=== PATIENT | female | born 1965 | race Caucasian/White ===

== ENCOUNTER 2020-04-01 07:30 | Outpatient (REF) | payer OTHER, SELFPAY ==
[2020-04-01 11:24] LABS: MANUAL DIFF FLAG NO
[2020-04-01 11:33] LABS: Basophils Percent Auto 0.6 % (0-2); Eosinophils Absolute Auto 0.1 X10*3/uL (0.0-0.4); Eosinophils Percent Auto 2.5 % (0-4); Hematocrit 38.6 % (37-47); Hemoglobin 12.2 g/dl (12.0-16.0); Lymphocytes Absolute Auto 1.3 X10*3/uL (1.2-4.9); Lymphocytes Percent Auto 39.3 % (20-40); Mean Corpuscular HGB Conc 31.6 g/dl (31.0-35.0); Mean Corpuscular Hemoglobin 27.9 pg (27.0-33.0); Mean Corpuscular Volume 88.3 fL (80-98); Mean Platelet Volume 10.2 fL (9.4-12.3); Monocytes Absolute Auto 0.4 X10*3/uL (0.1-1.2); Monocytes Percent Auto 13.4 % (2-11); Neutrophils Absolute Auto 1.4 X10*3/uL (2.0-8.3); Neutrophils Percent Auto 44.2 % (45-73); Platelet Count 188 X10*3/uL (160-400); Red Blood Count 4.37 X10*6/uL (4.20-5.50); Red Cell Distribution Width 13.2 % (11.0-16.0); White Blood Count 3.2 X10*3/uL (4.8-10.8)
[2020-04-01 12:38] LABS: Alanine Aminotransferase 28 U/L (0-31); Albumin Level 4.4 g/dL (3.5-5.0); Alkaline Phosphatase 111 U/L (39-117); Anion Gap 13 (12-20); Aspartate Amino Transferase 26 U/L (5-31); Bilirubin Total 0.7 mg/dL (0.0-1.0); Blood Urea Nitrogen 14 mg/dL (9-16); Calcium 9.1 mg/dL (8.4-10.2); Carbon Dioxide 26 mmol/L (22-29); Chloride 103 mmol/L (96-108); Estimated Glomerular Filt Rate > 60; Glucose Fasting 110 mg/dL (60-99); Potassium 4.4 mmol/l (3.3-5.1); Sodium 138 mmol/L (135-145); Total Protein 7.3 g/dL (6.5-8.0)
[2020-04-01 12:49] LABS: TSH reflex Free T4 0.53 mIU/mL (0.32-4.0)
== END 2020-04-01 07:31 | disposition home or self-care (01) ==
LOC: HO.HMGCLDS 07:30
PROVIDERS: PCP Nurse Practitioner Family; Visit Provider Internal Medicine
DX: Z20.828 Contact with and (suspected) exposure to other viral communicable diseases (principal); F41.9 Anxiety disorder, unspecified; F32.9 Major depressive disorder, single episode, unspecified; F10.10 Alcohol abuse, uncomplicated
CPT/HCPCS: 36415; 80053; 84443; 85025; C9803; U0003

== ENCOUNTER 2020-07-03 13:20 | Outpatient (REF) | payer OTHER, SELFPAY ==
--- NOTE | ~2020-07-03 | CT_ITS ---
EXAMINATION: CT CHEST WITHOUT CONTRAST CLINICAL INFORMATION: Wheezing COMPARISON: None TECHNIQUE: Multidetector volumetric CT imaging of the chest was done. Axial MIP volume rendering provided. Sagittal and coronal reformatted images were obtained. This CT examination was performed using dose optimization techniques as appropriate, variously including the following: *Automated exposure control *Adjustment of mA and/or kV according to patient size (this includes techniques or standardized protocols for targeted exams where dose is matched to indication/reason for exam; i.e. extremities or head) *Use of iterative reconstruction technique DLP: 132 mGy-cm FINDINGS: [employer] WORKER: LUNGS: There is mild biapical pleural and parenchymal scarring. There is a 2 mm right upper lobe nodule axial image 182 series 7. There is a 2 mm peripheral or subpleural left lower lobe nodule adjacent to the fissure axial image 273 series 7, and slight nodular thickening of the fissure for example axial image 336 series 7. There is a 2 mm right lower lobe nodule axial image 333 series 7. No evidence of bronchiectasis or endobronchial or endotracheal lesion is seen. MEDIASTINUM: There is mild coronary artery calcification. There is a small esophageal hernia. The mediastinum is otherwise normal. The mediastinum is normal. PLEURA: There is no pleural effusion. No pleural mass or thickening. AXILLA: No lymphadenopathy. UPPER ABDOMEN: Evaluation of the upper abdomen is limited due to lack of contrast and low dose film technique. There is a varix seen anterior to the left lobe of the liver questionable for recanalized paraumbilical vein. OSSEOUS STRUCTURES: There is slight loss of height of superior endplate of the T12 vertebral body questionable for mild old compression fracture. CT/CT chest wo con IMPRESSION: Small pulmonary nodules. According to the UPDATED 2017 Fleischner Society recommendations, the advised follow-up imaging for less than 6 mm nodule: Low risk, no chest CT follow-up needed and high risk, optional chest CT follow-up in one year. Mild coronary artery calcification. Small esophageal hernia. Prominent varicosity anterior to the left lobe of the liver questionable for a recannulized paraumbilical vein.
== END 2020-07-03 13:21 | disposition home or self-care (01) ==
LOC: HO.CT 13:20
PROVIDERS: PCP Nurse Practitioner Family; Visit Provider Nurse Practitioner Family
DX: R06.2 Wheezing (principal); U07.1 COVID-19
CPT/HCPCS: 71250

== ENCOUNTER 2020-07-22 14:06 | Outpatient (REF) | payer OTHER, SELFPAY ==
[2020-07-23 08:06] LABS: SARS COV2 IgG Positive (Negative)
== END 2020-07-22 14:07 | disposition home or self-care (01) ==
LOC: HO.HMGCLDS 14:06
PROVIDERS: PCP Nurse Practitioner Family; Visit Provider Nurse Practitioner Family
DX: Z86.16 Personal history of COVID-19 (principal); Z20.822 Contact with and (suspected) exposure to COVID-19
CPT/HCPCS: 36415; 86769

== ENCOUNTER 2020-11-17 08:35 | Outpatient (REF) | payer OTHER, SELFPAY ==
--- NOTE | ~2020-11-17 | MM_ITS ---
EXAMINATION: MM SCREENING DIGITAL BREAST TOMOSYNTHESIS, BILATERAL CLINICAL INFORMATION: Screening. Asymptomatic. The lifetime risk of breast cancer based on the Tyrer-Cuzick Model is 7.6%. COMPARISON: Mammography: None TECHNIQUE: Digital breast tomosynthesis is performed in both the craniocaudal and mediolateral oblique views along with computer-aided detection (CAD). Synthesized 2D images are generated from the tomosynthesis. FINDINGS: There are scattered areas of fibroglandular density (ACR BI-RADS breast composition Category b). Within the deep upper outer aspect of the right breast approximately 9 cm from the nipple there is a grouping of calcifications without linear or branching forms for which spot magnification views in craniocaudal and 90 degree mediolateral views are recommended. No suspicious abnormal dominant masses are identified. Left breast unremarkable. MM/MM tomosynthesis screening BI IMPRESSION: Right breast calcifications for further evaluation with spot magnification views. ASSESSMENT: BI-RADS 0: Incomplete - Need Additional Imaging Evaluation RECOMMENDATION: 1. Additional views of the right breast 2. Targeted ultrasound if warranted after review of the additional views. 3. Radiology department staff will contact the patient for additional imaging. This patient's information was entered into a reminder system with a target due date for their next mammogram.
== END 2020-11-17 08:36 | disposition home or self-care (01) ==
LOC: HO.MAMMO 08:35
PROVIDERS: Visit Provider Nurse Practitioner Family
DX: Z12.31 Encounter for screening mammogram for malignant neoplasm of breast (principal)
CPT/HCPCS: 77063; 77067

== ENCOUNTER 2020-11-20 08:24 | Outpatient (REF) | payer OTHER, SELFPAY ==
--- NOTE | ~2020-11-20 | MM_ITS ---
EXAMINATION: MM DIAGNOSTIC DIGITAL MAMMOGRAPHY, RIGHT CLINICAL INFORMATION: Calcifications deep upper outer aspect of the right breast. COMPARISON: Mammography: 11/17/2020 and 05/22/2011. TECHNIQUE: Digital mammography is performed in the following views: Magnification views of the right breast in craniocaudal and 90-degree mediolateral views. FINDINGS: The breasts are heterogeneously dense, which may obscure small masses (ACR BI-RADS breast composition Category c). The grouping of calcifications within the deep upper outer aspect of the right breast appear without significant change from study of 05/22/2011 on mediolateral oblique film and are not as well seen on the craniocaudal projection but there is a hint of the calcifications being there as well. Screening mammography recommended. Results are provided to the patient at time of visit by the technologist. MM/MM added views RT IMPRESSION: Benign calcifications deep upper outer aspect of the right breast. ASSESSMENT: BI-RADS 2: Benign. RECOMMENDATION: Routine annual mammography screening due in 12 months. This patient's information was entered into a reminder system with a target due date for their next mammogram.
== END 2020-11-20 08:25 | disposition home or self-care (01) ==
LOC: HO.MAMMO 08:24
PROVIDERS: PCP Nurse Practitioner Family; Visit Provider Nurse Practitioner Family
DX: R92.1 Mammographic calcification found on diagnostic imaging of breast (principal)
CPT/HCPCS: 77065

== ENCOUNTER 2020-12-15 08:56 | Outpatient (REF) | payer OTHER, SELFPAY ==
--- NOTE | ~2020-12-15 | XR_ITS ---
EXAMINATION: XR LUMBOSACRAL SPINE CLINICAL INFORMATION: Low back pain COMPARISON: Chest CT June 2020 TECHNIQUE: Three views of the lumbosacral spine. FINDINGS: Bone alignment is normal. No acute fracture or dislocation is seen. There is an old mild T12 vertebral body compression fracture similar to chest CT June 2020. Disc spaces are normal. There is lower lumbar spine facet arthritis. XR/XR lumbar spine 2-3V IMPRESSION: Old mild T12 vertebral body compression fracture. Lower lumbar spine facet arthritis.
== END 2020-12-15 08:57 | disposition home or self-care (01) ==
LOC: HO.HMGCX 08:56
PROVIDERS: PCP Nurse Practitioner Family; Visit Provider Nurse Practitioner Family
DX: Z13.89 Encounter for screening for other disorder (principal)
CPT/HCPCS: 72100

== ENCOUNTER 2021-02-27 08:54 | Outpatient (REF) | payer OTHER, SELFPAY ==
--- NOTE | ~2021-02-27 | XR_ITS ---
EXAMINATION: XR KNEE, RIGHT CLINICAL INFORMATION: Pain COMPARISON: None TECHNIQUE: Four views of the right knee. FINDINGS: Bone alignment is normal. No fracture or dislocation is seen. There are small osteophytes seen at the patellofemoral joint. Joint spaces are otherwise normal. There is no joint effusion. XR/XR knee RT 4V IMPRESSION: Small osteophytes at the patellofemoral joint otherwise unremarkable exam.
== END 2021-02-27 08:55 | disposition home or self-care (01) ==
LOC: HO.HMGCX 08:54
PROVIDERS: PCP Nurse Practitioner Family; Visit Provider Physician Assistant Medical
DX: M25.561 Pain in right knee (principal)
CPT/HCPCS: 73564

== ENCOUNTER 2021-05-11 19:03 | Outpatient (REF) | payer OTHER, SELFPAY ==
[2021-05-11 19:48] LABS: Influenza A PCR NEGATIVE (Negative); Influenza B PCR NEGATIVE (Negative); Resp Syncy Virus RNA Qual PCR NEGATIVE (Negative); SARS COV2 PCR INHOUSE NEGATIVE (Negative)
== END 2021-05-11 19:04 | disposition home or self-care (01) ==
LOC: HO.LNP 19:03
PROVIDERS: Visit Provider Internal Medicine
DX: R43.9 Unspecified disturbances of smell and taste (principal); Z20.822 Contact with and (suspected) exposure to COVID-19
CPT/HCPCS: 0241U

== ENCOUNTER 2022-02-27 10:32 | Outpatient (REF) | payer OTHER, SELFPAY ==
--- NOTE | ~2022-02-27 | XR_ITS ---
EXAMINATION: XR HIP, RIGHT CLINICAL INFORMATION: Right hip pain. COMPARISON: 2016 right hip radiographs. TECHNIQUE: Two views of the right hip. FINDINGS: Bones and soft tissues are normal. No fracture. Alignment is anatomic. Hip joint space is maintained. XR/XR hip RT min 2V IMPRESSION: Unremarkable right hip. No significant interval change.
== END 2022-02-27 10:33 | disposition home or self-care (01) ==
LOC: HO.HMGCX 10:32
PROVIDERS: PCP Nurse Practitioner Family; Visit Provider Nurse Practitioner Family
DX: M25.551 Pain in right hip (principal)
CPT/HCPCS: 73502

== ENCOUNTER 2022-04-23 11:48 | Outpatient (REF) | payer OTHER, SELFPAY ==
--- NOTE | ~2022-04-23 | MM_ITS ---
EXAMINATION: MM SCREENING DIGITAL BREAST TOMOSYNTHESIS, BILATERAL CLINICAL INFORMATION: Screening. Asymptomatic. The lifetime risk of breast cancer based on the Tyrer-Cuzick Model is 7%. COMPARISON: Mammography: 11/20/2020 2821, outside mammography 05/22/2011 ([facility]). TECHNIQUE: Digital breast tomosynthesis is performed in both the craniocaudal and mediolateral oblique views along with computer-aided detection (CAD). Synthesized 2D images are generated from the tomosynthesis. FINDINGS: There are scattered areas of fibroglandular density (ACR BI-RADS breast composition Category b). Parenchymal pattern is similar to prior studies. There are scattered stable asymmetries. No developing density or interval mass or architectural abnormality or abnormal calcifications. A few fine calcifications are again seen posterior outer right breast. The axilla and skin contours are unremarkable. MM/MM tomosynthesis screening BI IMPRESSION: -No mammographic evidence of malignancy. -No significant changes from prior studies. ASSESSMENT: BI-RADS 2: Benign RECOMMENDATION: Routine annual mammography screening. This patient's information was entered into a reminder system with a target due date for their next mammogram.
== END 2022-04-23 11:49 | disposition home or self-care (01) ==
LOC: HO.MAMMO 11:48
PROVIDERS: PCP Nurse Practitioner Family; Visit Provider Nurse Practitioner Family
DX: Z12.31 Encounter for screening mammogram for malignant neoplasm of breast (principal)
CPT/HCPCS: 77063; 77067

== ENCOUNTER 2022-07-12 13:46 | Outpatient (REF) | payer OTHER, SELFPAY ==
[2022-07-12 15:18] LABS: Influenza A PCR NEGATIVE (Negative); Influenza B PCR NEGATIVE (Negative); Resp Syncy Virus RNA Qual PCR NEGATIVE (Negative); SARS COV2 PCR INHOUSE NEGATIVE (Negative)
== END 2022-07-12 13:47 | disposition home or self-care (01) ==
LOC: HO.LNP 13:46
PROVIDERS: Visit Provider Physician Assistant
DX: Z13.89 Encounter for screening for other disorder (principal)
CPT/HCPCS: 0241U

== ENCOUNTER 2022-08-11 08:00 | Outpatient (RCR) | payer OTHER, SELFPAY ==
[2022-08-06 07:43] VITALS: BP 152/98; PULSE 111; O2SAT 96
--- NOTE | 2022-08-06 09:33 | MHC.PT.EP ---
[facility] [place] [facility] [place] [facility] [place] Office [address] Alexandra Harris [address] [phone] F: [phone] F: [phone] F: [phone] F: [phone] Physical Therapy Plan of Care Date of Evaluation: Date of Surgery: Diagnosis: This is a 57 yo female presenting to skilled PT with a script for dizziness and giddiness. Assessment: This is a 57 yo female presenting to skilled PT with a script for dizziness and giddiness. Patient reporting that she had Covid for the second time after Amanuel and since then she felt like her ears have been off (L side is worse, feels itchy). She went to urgent care and was given Izabela and then continued to feel off and went to PCP and was prescribed meclizine. Denies imaging. She feels like her vision in off but has not been to the optomitrist. She gets the symptoms when standing up too fast, bending forward, stairs and when driving. She reports that she has to move slowly, I feels like my head goes this way but my eyes don't follow . Examination shows + oculomotor tests, (-) VBI B, and functional cervical AROM. She was (+) for BPPV with aniket-hallpike on the R but PT was unable to assess due to patient anxiety, nausea as well as patient not following directions for focusing or keep eyes open. She refused to reassess due to anxiety, fear and nausea but will be returning next week. I called PCP who will be keeping her out of work for now. In terms of balance she fell into the falls risk category on DGI . She would benefit from PT 2x/wk for 4wks to further assess if patient + for BPPV or if referral out may be necessary. Patient to continue PT next week to address impairments, implement HEP and optimize functional mobility. ? referrals for PCP: optometry (patient with blurry vision without cheaters on), Brain scan for + oculomotor tests, neurology, ENT Frequency and Duration: The patient will be seen 2x/wk for 4wks Short Term Goals: [facility]ci Goals: I in HEP Negative in all 6 canals for dizziness and nystagmus Return to normal gait pattern without reports fo LOB due to dizziness Return to work in full Treatment Plan: Modalities to reduce pain, spasms and effusion. Manual therapy to restore motion and function. Therapeutic exercise to improve strength and flexibility. Neuromuscular re-education for posture and balance. Therapeutic activities to return to functional activities of daily living. Electronically signed by: Neris Brito PT Please sign and return to therapist. Thank you for your referral.
--- NOTE | 2022-09-16 10:07 | MHC.PT.DC ---
[place] Office [place] Office [place] Office [address] Alexandra Harris [address] [phone] F: [phone] F: [phone] F: [phone] F: [phone] Physical Therapy Discharge Report Diagnosis: This is a 57 yo female presenting to skilled PT with a script for dizziness and giddiness. Date of Surgery: Date of Evaluation: 08/06/22 Date of Discharge: 09/16/22 Treatments to Date: 3 Cancellations to Date: 0 No Shows to Date: 0 Discharge Status: Recommend MD Follow-up Discharge Summary: Patient came into appointment, states that she had a lot of L ear pain last night, took a Motrin and felt better but did not sleep well. She had a panic attack and took another anxiety pill. Today in R hallpike her nystagmus was not subsiding and appear almost vertical in nature. At this point I decided to hold and contacted the PCP again in regards to a brain scan. At this point I educated her that I would like to place her on PT hold until imaging is done to be on the safe side. She did however report feeling better leaving the clinic. Patient did not call or make a return appointment so chart was DC'd after 30 days. Electronically signed by: Neris Brito PT Please sign and return to therapist. Thank you for your referral.
== END 2022-09-16 10:07 | disposition home or self-care (01) ==
LOC: HO.PTCHIC 08:00
PROVIDERS: PCP Nurse Practitioner Family; Visit Provider Nurse Practitioner Family
DX: R42 Dizziness and giddiness (principal)
CPT/HCPCS: 95992; 97110; 97112; 97161; 97162

== ENCOUNTER 2022-08-24 08:47 | Outpatient (REF) | payer OTHER, SELFPAY ==
--- NOTE | ~2022-08-24 | MR_ITS ---
MR BRAIN WITHOUT AND WITH CONTRAST CLINICAL INFORMATION: Nystagmus, vertigo, and tinnitus. COMPARISON: None available. TECHNIQUE: Multiplanar, multisequence MRI of the brain was obtained before and after the intravenous administration of 7 mL of Gadavist. FINDINGS: The inner ear structures including the cochlea, vestibules, and semicircular canals exhibit preserved CSF signal intensity with no pathologic enhancement. The vestibular aqueducts are not enlarged. Cranial nerves VII and VIII complexes are normal in morphology. No enhancing CP angle/retrocochlear lesion. There is no pathologic intracranial enhancement. There is mild chronic microangiopathy. No acute infarct on diffusion-weighted imaging. No intracranial hemorrhage on the gradient series. No hydrocephalus, extra-axial surface collection, or herniation. The midline intracranial structures are normal. Cerebellar tonsils are normally positioned. Craniocervical junction is normal. Osseous marrow signal intensity remains homogeneous. No significant soft tissue abnormality is appreciated. MR/MR head/brain wo/w con IMPRESSION: - No retrocochlear pathology. - Mild chronic microangiopathy.
== END 2022-08-24 08:48 | disposition home or self-care (01) ==
LOC: HO.MRI 08:47
PROVIDERS: PCP Nurse Practitioner Family; Visit Provider Nurse Practitioner Family
DX: H55.09 Other forms of nystagmus (principal); H93.19 Tinnitus, unspecified ear; R42 Dizziness and giddiness
CPT/HCPCS: 70553; A9585

== ENCOUNTER 2022-10-20 06:27 | Outpatient (REF) | payer OTHER, SELFPAY ==
[2022-10-20 11:10] LABS: MANUAL DIFF FLAG NO
[2022-10-20 11:22] LABS: Appearance Urine Clear; Color Urine Yellow; Glucose Urine UA Negative (Negative); Leukocyte Esterase Urine Negative (Negative); Nitrite Urine Negative (Negative); PH 6.5 (5.0-9.0); Specific Gravity - Urine 1.015 (1.005-1.025); Urine Blood Negative (Negative); Urine Ketones Negative (Negative); Urine Protein Negative (Neg-Trace)
[2022-10-20 11:46] LABS: Alanine Aminotransferase 33 U/L (0-31); Albumin Level 4.1 g/dL (3.5-5.0); Alkaline Phosphatase 120 U/L (39-117); Anion Gap 11 (12-20); Aspartate Amino Transferase 27 U/L (5-31); Bilirubin Total 0.7 mg/dL (0.0-1.0); Blood Urea Nitrogen 7 mg/dL (9-16); Calcium 9.6 mg/dL (8.4-10.2); Carbon Dioxide 29 mmol/L (22-29); Chloride 105 mmol/L (96-108); Cholesterol 223 mg/dL; Estimated Glomerular Filt Rate > 60; Glucose Fasting 86 mg/dL (60-99); HDL Cholesterol 70 mg/dL; LDL Cholesterol Calculated 136 mg/dl; Potassium 3.5 mmol/L (3.3-5.1); Sodium 141 mmol/L (135-145); Total Protein 6.8 g/dL (6.5-8.0); Triglycerides 85 mg/dL
[2022-10-20 12:03] LABS: TSH reflex Free T4 0.73 uIU/mL (0.32-4.0)
[2022-10-20 12:08] LABS: Basophils Absolute Auto 0.1 X10*3/uL (0.0-0.2); Eosinophils Absolute Auto 0.1 X10*3/uL (0.0-0.4); Eosinophils Percent Auto 2.3 % (0-4); Hematocrit 39.3 % (37.0-47.0); Hemoglobin 13.1 g/dl (12.0-16.0); Imm Gran Abs Auto 0.01 X10*3/uL (0.00-0.03); Imm Gran Pct Auto 0.2 % (0.0-0.4); Lymphocytes Absolute Auto 2.6 X10*3/uL (1.2-4.9); Lymphocytes Percent Auto 50.7 % (20-40); Mean Corpuscular HGB Conc 33.3 g/dl (31.0-35.0); Mean Platelet Volume 10.7 fL (9.4-12.3); Monocytes Absolute Auto 0.3 X10*3/uL (0.1-1.2); Monocytes Percent Auto 6.6 % (2-11); Neutrophils Percent Auto 39.2 % (45-73); Platelet Count 177 X10*3/uL (160-400); Red Blood Count 3.97 X10*6/uL (4.20-5.50); Red Cell Distribution Width 12.2 % (11.0-16.0); White Blood Count 5.2 X10*3/uL (4.8-10.8)
== END 2022-10-20 06:28 | disposition home or self-care (01) ==
LOC: HO.HMGCLDS 06:27
PROVIDERS: PCP Nurse Practitioner Family; Visit Provider Nurse Practitioner Family
DX: Z00.00 Encounter for general adult medical examination without abnormal findings (principal); I10 Essential (primary) hypertension; W19.XXXA Unspecified fall, initial encounter; F10.10 Alcohol abuse, uncomplicated
CPT/HCPCS: 36415; 80053; 80061; 81003; 84443; 85025

== ENCOUNTER 2023-01-03 15:34 | Outpatient (AMB) | payer OTHER, SELFPAY ==
[2023-01-03 15:48] VITALS: BP 110/78; PULSE 70; O2SAT 100; BMI 22.6
--- NOTE | 2023-01-03 15:48 | MHC.PC.OV ---
Vital Signs 01/03/23 15:48 Height 5 ft 5 in Weight 136 lb BMI 22.6 BP 110/78 Blood Pressure Location Rt brachial Position Sitting Pulse 70 Pulse Source Pulse Oximeter Pulse Oximetry (%) 100 Oxygen Delivery Method Room Air Intake Visit Reasons: 3m follow up seizures Allergies amoxicillin [Augmentin] Allergy (Unknown, Verified 01/03/23 15:50) hives ciprofloxacin [From CIPRO] Allergy (Unknown, Verified 01/03/23 15:50) HIVES clavulanic acid [Augmentin] Allergy (Unknown, Verified 01/03/23 15:50) hives trazodone Allergy (Unknown, Verified 01/03/23 15:50) unknown Medication List - Last Reconciled 01/03/23 by JEROME Tuttle bupropion HCl 150 mg PO QAM 30 days cholecalciferol (vitamin D3) 50 mcg PO DAILY clonazepam 0.5 mg PO BID PRN 20 days fluticasone propion-salmeterol 250-50 mcg/dose 1 inh inhalation BID meclizine 25 mg PO DAILY PRN omeprazole 40 mg PO DAILY 90 days quetiapine (Seroquel) 25 mg PO BEDTIME rosuvastatin 5 mg PO DAILY Tobacco use date assessed: 01/03/23 Dental Screening Dental Screen Date: 01/03/23 Did you have a dental visit in the last 12 months?: Yes Did you have a dental problem in the last 6 months where you did not have access to dental care?: No Was dental information given to patient?: Patient has dentist HPI 3m follow up seizures HPI Details Anxiety/depression: Pt reports doing well. She does not feel like this is doing much for her and would like to decrease it. Will decrease from 300mg to 150mg. Denies any SI and HI. Pt reports that she has not drank alcohol in 4-5 weeks. She has not had any seizure activity. [facility] Medical History Aftercare following left shoulder joint replacement surgery Alcohol abuse Anxiety and depression ETOH abuse Fractured nose Surgical History History of shoulder surgery Family History Father Bladder cancer Lung cancer Eye cancer Mother HTN (hypertension) Sister No problems noted. Son No problems noted. Daughter No problems noted. Maternal Grandmother HTN (hypertension) Paternal Grandfather No problems noted. Maternal Grandfather No problems noted. Paternal Grandmother No problems noted. Other Fractured nose Social History (Reviewed 10/25/22 @ 15:24 by Jayden Mayfield [facility] Housing: House Patient Tobacco Use Status: Former Tobacco user e-Cigarette/Vaping Use: Never Used Second Hand Smoke Exposure: Yes service: No Current occupational status: employed Current occupational exposures/hazards: No Cognitive needs: No Hearing needs: No Vision needs: Yes Questionnaire Thrive Questionnaire Date Thrive assessed: 07/22/22 TOMAS-7 AMB Questionnaire TMOAS-7 Date TOMAS - 7 assessed: 07/22/22 Source: Developed by Drs. Usama Wheeler, Veda Coreas, Varun Ashley and colleagues, with an educational brian from [employer]. Review of Systems Const Reports as per HPI Physical exam (Primary Care) Vital Signs: Last Vital Signs Pulse 70 01/03/23 15:48 BP 110/78 01/03/23 15:48 Pulse Ox 100 01/03/23 15:48 Oxygen Delivery Method Room Air 01/03/23 15:48 BMI result Body Mass Index 22.6 Tobacco/Smoking Status: Tobacco use Status Tobacco use date assessed 01/03/23 01/03/23 15:54 Patient Tobacco Use Status Former Tobacco user 01/03/23 15:54 e-Cigarette/Vaping Use Never Used 01/03/23 15:54 Thrive Assessment: Date of Thrive Assessment Date Thrive assessed 07/22/22 01/03/23 15:54 Const General: cooperative Orientation/consciousness: patient oriented x3 Neuro General: patient oriented x3 Psych Appearance: grossly normal Mental Status: mental status grossly normal Speech and movement: Normal speech and movement present Affect: normal affect Attitude: cooperative Thought process: Normal thought process present Thought content: Normal thought content present Insight: Good insight present (Psych) Judgement: Good judgement present (Psych) Assessment and Plan Assessment & Plan (1) LOC (loss of consciousness): Code(s): R40.20 - Unspecified coma (2) Vitamin D deficiency: Code(s): E55.9 - Vitamin D deficiency, unspecified Plan The patient agreed to the use of a quality engineer medical device for this encounter. Scribed for LEONID Avalos- by Nimo Tierney quality engineer medical device, on 01/03/2023 at 16:10 EST. Orders: Orders Comprehensive Leonard. Panel Fast Today R40.20 - Unspecified coma Lipid Panel Today R40.20 - Unspecified coma TSH reflex Free T4 Today R40.20 - Unspecified coma Complete Blood Count Auto Diff Today R40.20 - Unspecified coma UA CC w/rflx Micro + Cult Today R40.20 - Unspecified coma Vitamin D 25-OH Total Today E55.9 - Vitamin D deficiency, unspecified Medications: Changed From bupropion HCl 300 mg PO QAM 30 tabs 6RF F32.9 - Major depressive disorder, single episode, unspecified, F41.9 - Anxiety disorder, unspecified To bupropion HCl 150 mg PO QAM 30 tabs 6RF 30 days F32.9 - Major depressive disorder, single episode, unspecified, F41.9 - Anxiety disorder, unspecified Coding Level of Care Code Est Pt Level 3 (48329) Diagnoses LOC (loss of consciousness) R40.20 Vitamin D deficiency E55.9
== END 2023-01-03 16:43 | disposition home or self-care (01) ==
PROVIDERS: PCP Nurse Practitioner Family; Visit Provider Nurse Practitioner Family
DX: R40.20 Unspecified coma (principal); E55.9 Vitamin D deficiency, unspecified
CPT/HCPCS: 99213

== ENCOUNTER 2023-02-22 11:44 | Outpatient (REF) | payer OTHER, SELFPAY ==
--- NOTE | ~2023-02-22 | XR_ITS ---
EXAMINATION: XR KNEE, RIGHT CLINICAL INFORMATION: Right knee effusion. COMPARISON: Right knee radiographs dated 02/27/2021. TECHNIQUE: Four views of the right knee. FINDINGS: Tiny medial and patellofemoral compartment marginal osteophytes. Minimal patellar subchondral cystic change. Findings are similar when compared to the prior examination. Trace joint effusion. No acute fracture or dislocation. No concerning lytic or blastic osseous lesion. No abnormal soft tissue calcification. XR/XR knee RT 4V IMPRESSION: Mild medial and patellofemoral compartment osteoarthritis, unchanged. Trace joint effusion.
[2023-02-22 13:25] LABS: MANUAL DIFF FLAG NO
[2023-02-22 13:39] LABS: Appearance Urine Clear; Color Urine Yellow; Glucose Urine UA Negative (Negative); Leukocyte Esterase Urine Negative (Negative); Nitrite Urine Negative (Negative); PH 5.5 (5.0-9.0); Specific Gravity - Urine 1.015 (1.005-1.025); Urine Blood Negative (Negative); Urine Ketones Negative (Negative); Urine Protein Negative (Neg-Trace)
[2023-02-22 13:39] LABS: Basophils Percent Auto 0.5 % (0-2); Eosinophils Absolute Auto 0.1 X10*3/uL (0.0-0.4); Eosinophils Percent Auto 1.6 % (0-4); Hematocrit 37.5 % (37.0-47.0); Hemoglobin 12.2 g/dl (12.0-16.0); Lymphocytes Absolute Auto 2.2 X10*3/uL (1.2-4.9); Lymphocytes Percent Auto 39.7 % (20-40); Mean Corpuscular HGB Conc 32.5 g/dl (31.0-35.0); Mean Corpuscular Hemoglobin 29.7 pg (27.0-33.0); Mean Corpuscular Volume 91.2 fL (80.0-98.0); Mean Platelet Volume 10.8 fL (9.4-12.3); Monocytes Absolute Auto 0.4 X10*3/uL (0.1-1.2); Monocytes Percent Auto 6.6 % (2-11); Neutrophils Absolute Auto 2.8 x10*3/uL (2.0-8.3); Neutrophils Percent Auto 51.6 % (45-73); Platelet Count 207 X10*3/uL (160-400); Red Blood Count 4.11 X10*6/uL (4.20-5.50); Red Cell Distribution Width 14.3 % (11.0-16.0); White Blood Count 5.5 X10*3/uL (4.8-10.8)
[2023-02-22 13:51] LABS: Alanine Aminotransferase 17 U/L (0-31); Albumin Level 4.4 g/dL (3.5-5.0); Alkaline Phosphatase 107 U/L (39-117); Anion Gap 13 (12-20); Aspartate Amino Transferase 23 U/L (5-31); Bilirubin Total 0.5 mg/dL (0.0-1.0); Blood Urea Nitrogen 10 mg/dL (9-16); Calcium 10.3 mg/dL (8.4-10.2); Carbon Dioxide 27 mmol/L (22-29); Chloride 104 mmol/L (96-108); Cholesterol 176 mg/dL (<200); Estimated Glomerular Filt Rate > 60; Glucose Fasting 79 mg/dL (60-99); HDL Cholesterol 75 mg/dL (>40); LDL Cholesterol Calculated 87 mg/dL (<100); Potassium 4.3 mmol/L (3.3-5.1); Sodium 140 mmol/L (135-145); Total Protein 7.3 g/dL (6.5-8.0); Triglycerides 70 mg/dL (<150)
[2023-02-22 14:11] LABS: TSH reflex Free T4 0.38 uIU/mL (0.32-4.0); Vitamin D 25-OH Total 56.3 ng/mL (>30)
== END 2023-02-22 11:45 | disposition home or self-care (01) ==
LOC: HO.HMGCX 11:44
PROVIDERS: PCP Nurse Practitioner Family; Visit Provider Nurse Practitioner Family
DX: R40.20 Unspecified coma (principal); E55.9 Vitamin D deficiency, unspecified; M25.461 Effusion, right knee
CPT/HCPCS: 36415; 73564; 80053; 80061; 81003; 82306; 84443; 85025

== ENCOUNTER 2023-04-06 10:12 | Outpatient (AMB) | payer OTHER, SELFPAY ==
[2023-04-06 10:39] VITALS: BP 124/80; PULSE 87; TEMP 36.6; O2SAT 97; BMI 21.8
--- NOTE | 2023-04-06 10:39 | MHC.OFFWIV ---
Intake Vital Signs 04/06/23 10:39 Height 5 ft 5 in Weight 59.421 kg BMI 21.8 BP 124/80 Blood Pressure Location Rt brachial Position Sitting Pulse 87 Pulse Source Pulse Oximeter Temp 97.8 F Temp Source Temporal Artery Scan Pulse Oximetry (%) 97 Oxygen Delivery Method Room Air Intake Visit Reasons: EP laryngitis cough headache Intake Note: pt is here for c.o laryngitis, cough and headache Patient Tobacco Use Status: Former Tobacco user Allergies amoxicillin [Augmentin] Allergy (Unknown, Verified 04/06/23 10:39) hives ciprofloxacin [From CIPRO] Allergy (Unknown, Verified 04/06/23 10:39) HIVES clavulanic acid [Augmentin] Allergy (Unknown, Verified 04/06/23 10:39) hives trazodone Allergy (Unknown, Verified 04/06/23 10:39) unknown Do you need a note to return to daycare/school/sports/work: Yes HPI HPI Comments History of Present Illness Details 1102 58-year-old female history of alcohol abuse, anxiety, depression, fracture of nose presenting for sick visit complaining of fatigue, malaise, cough, headache for the past few his worsening. Reports headache feels like her typical headache no abnormal findings, no visual disturbances, dizziness or associated trauma. Denies recent sick contacts. Denies chest pain, shortness of breath, visual disturbances, dizziness, weakness, nausea, vomiting, abdominal pain, changes in urination. Physical exam benign. No meningeal signs. Neuro nonfocal. Concerns for viral illness. Unlikely meningitis, encephalitis, intracranial hemorrhage, stroke, posterior stroke. Unlikely pneumonia, pulmonary embolism. Cough likely bronchitis versus viral illness. No signs of acute respiratory distress. Plan supportive measures, will discharge home with albuterol inhaler, benzonatate Perles, prednisone. Educated patient on diagnosis and treatment plan, answered all question, patient verbalizes understanding. At this time patient will be discharged home, advised to return with new or worsening symptoms. Educated on worrisome signs and symptoms and when to return. At this time I feel comfortable discharge home. [facility] Medical History Fractured nose ETOH abuse Alcohol abuse Anxiety and depression Aftercare following left shoulder joint replacement surgery Surgical History History of shoulder surgery Family History Father Bladder cancer Lung cancer Eye cancer Mother HTN (hypertension) Sister No problems noted. Son No problems noted. Daughter No problems noted. Maternal Grandmother HTN (hypertension) Paternal Grandfather No problems noted. Maternal Grandfather No problems noted. Paternal Grandmother No problems noted. 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 occupational status: employed Current occupational exposures/hazards: No Cognitive needs: No Hearing needs: No Vision needs: Yes Review of Systems Const Details: Constitutional : No Weight loss, No Fever, No Chills, + Fatigue, + Malaise ENT/Mouth : No sore throat, No Rhinorrhea Eyes: No Eye Pain, No Swelling, No Redness Cardiovascular : No Chest Pain, No SOB, No Dyspnea on Exertion, No Orthopnea, No Edema, No Palpitations Respiratory : + Cough, No Sputum, No Wheezing Gastrointestinal : No Nausea, No Vomiting, No Diarrhea, No Constipation, No abdominal Pain, No Hematochezia, No Melena Genitourinary : No Dysuria, No Urinary Frequency, No Hematuria, Musculoskeletal : No joint pain, No Myalgias, No Joint Swelling Skin : No Skin Lesions, No rash Neuro : No Weakness, No Numbness, No Dizziness, + Headache Psych : No Anxiety/Panic, No Depression All other systems reviewed and are negative All systems reviewed & are unremarkable except as noted in HPI and below Physical Exam Vital Signs: Last Vital Signs Temp 97.8 F 04/06/23 10:39 Pulse 87 04/06/23 10:39 BP 124/80 04/06/23 10:39 Pulse Ox 97 04/06/23 10:39 Oxygen Delivery Method Room Air 04/06/23 10:39 BMI result Body Mass Index 21.8 vss Appearance: Alert.? Oriented X3.? No acute distress.? Head: Normocephalic, atraumatic, no step-offs or deformities Eyes: Pupils equal, round and reactive to light.? ENT: Pharynx normal.?? No pain with manipulation of external ears bilaterally. No mastoid tenderness. Normall TM and EC b/l Neck: Normal inspection.? Neck supple.?No meningial signs CVS: Normal heart rate and rhythm.? Pulses normal.? Respiratory: No respiratory distress.? Breath sounds normal.? Abdomen: Soft and nontender.? Skin: Skin warm and dry.? Normal skin color.? Normal skin turgor.? Extremities: No lower extremity edema.? No calf ttp. 5/5 strength to bilateral upper and lower extremities Neuro: Oriented X 3.? No motor deficit.? No sensory deficit. CN 2-12 intact. Normalheel to hearn steady tandem gait normal coordination NIHSS-0 Assessment & Plan Assessment & Plan (1) Viral syndrome: Code(s): B34.9 - Viral infection, unspecified Plan Take your medications as prescribed. If you were prescribed antibiotics today, it is important that you take your medication to their entirety, do not skip any doses, do not finish them early. Follow-up with your primary care provider this week. Return to the emergency department with new or worsening symptoms. Such as fevers, chills, chest pain, shortness of breath, nausea, vomiting, dizziness, headache, vision changes, lethargy In case of emergency call 911 Orders: Orders BinaxKEERTHI Covid-19 Today B34.9 - Viral infection, unspecified Medications: New benzonatate 100 mg PO BID PRN 14 caps 0RF cough prednisone 20 mg PO DAILY 5 tabs 0RF 5 days albuterol sulfate 90 mcg/actuation 2 puffs inhalation Q6H PRN 6.7 grams 0RF shortness of breath or wheezing Coding Level of Care Code Est Pt Level 3 (32263) Diagnoses Viral syndrome B34.9
== END 2023-04-06 11:40 | disposition home or self-care (01) ==
PROVIDERS: PCP Nurse Practitioner Family; Visit Provider Physician Assistant
DX: B34.9 Viral infection, unspecified (principal)
CPT/HCPCS: 99213

== ENCOUNTER 2023-04-06 11:11 | Outpatient (REF) | payer OTHER, SELFPAY ==
[2023-04-06 11:45] LABS: Binax Internal Control QC Valid; Binax Now Covid-19 Ag Negative (Negative); Binax Performed by: HO.BONILM
== END 2023-04-06 11:12 | disposition home or self-care (01) ==
LOC: HO.HMGCLDS 11:11
PROVIDERS: PCP Nurse Practitioner Family; Visit Provider Physician Assistant
DX: Z11.52 Encounter for screening for COVID-19 (principal)
CPT/HCPCS: 87811; C9803

== ENCOUNTER 2023-04-28 09:18 | Outpatient (AMB) | payer OTHER, SELFPAY ==
[2023-04-28 09:26] VITALS: BP 130/74; PULSE 99; O2SAT 99
--- NOTE | 2023-04-28 09:26 | A.OFFVIS_ITS ---
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 Required: No Allergies amoxicillin [Augmentin] Allergy (Unknown, Verified 04/28/23 09:27) hives ciprofloxacin [From CIPRO] Allergy (Unknown, Verified 04/28/23 09:27) HIVES clavulanic acid [Augmentin] Allergy (Unknown, Verified 04/28/23 09:27) hives trazodone Allergy (Unknown, Verified 04/28/23 09:27) unknown Medication List - Last Reconciled 04/28/23 by Florecita Bowen, DURAN albuterol sulfate 90 mcg/actuation (Ventolin HFA) 2 puffs inhalation Q6H PRN albuterol sulfate 90 mcg/actuation 2 puffs inhalation Q6H PRN bupropion HCl 300 mg PO QAM 30 days cholecalciferol (vitamin D3) 50 mcg PO DAILY clonazepam 0.5 mg PO BID PRN 20 days fluticasone propion-salmeterol 250-50 mcg/dose 1 inh inhalation BID meclizine 25 mg PO DAILY PRN omeprazole 40 mg PO DAILY 90 days ondansetron HCl 4 mg PO Q8H PRN 20 days quetiapine (Seroquel) 25 mg PO BEDTIME rosuvastatin 5 mg PO DAILY Do you need a note to return to daycare/school/sports/work: No HPI MAT Intake HPI Details Patient presents for intake and evaluation for increasing alcohol use Referred by PCP She reports alcohol has been an issue for her on and off for about 20 years Last drink 2 days ago Previously drinking 10 nips daily Reports tapering herself over several days History of alcohol withdrawal seizure X 3 Reports feeling yucky inside. Did not appear diaphoretic, BP and HR WNL, denies n/v, no tremor Treatment history: ATS admission X2 Naltrexone and vivitrol 2 years ago longest period in recovery 3 months Patient declining inpatient admission at this time Her goal is complete abstinence. Limited family support--she reports her 2 adult children are so sick of me drinking . Social HX: -lives alone. 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 Son No problems noted. Daughter No problems noted. Maternal Grandmother HTN (hypertension) Paternal Grandfather No problems noted. Maternal Grandfather No problems noted. Paternal Grandmother No problems noted. 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 occupational status: employed Current occupational exposures/hazards: No Cognitive needs: No Hearing needs: No Vision needs: Yes Review of Systems Const Reports as per HPI and Reports difficulty sleeping Physical Exam Vital Signs: Last Vital Signs Pulse 99 04/28/23 09:26 BP 130/74 04/28/23 09:26 Pulse Ox 99 04/28/23 09:26 Oxygen Delivery Method Room Air 04/28/23 09:26 Const General: cooperative, healthy appearing, comfortable and no acute distress Nutritional Appearance: average body habitus Orientation/consciousness: patient oriented x3 Limitations: no limitations Neuro General: patient oriented x3 and gait normal Assessment & Plan Assessment & Plan (1) Alcohol use disorder, severe, dependence: Code(s): F10.20 - Alcohol dependence, uncomplicated Plan: * Reviewed treatment options to address alcohol withdrawal and concern for possible worsening sx. Patient again states that she will not go inpatient for medically supervised withdrawal management. Discussed benzodiazepine taper at home, with someone present to support her. She rpeorts she has a neighbor that comes over multiple times/day and will stay with her to support her. * Reviewed risk of respiratory depression if patient consumed any alcohol with benzodiazepines. Patient verbalized understanding. * 4 day benzodiazepine taper and alcohol cessation. Day 1 and 2: Diazepam 10mg q 8 hours. Day 3: Diazepam 10mg q 12 hours.? Day 4: Diazepam 10mg at bedtime * At follow up appt will address ongoing treatment with naltrexone, also will discuss taper of wellbutrin and this medication can lower seizure threshold and based on her history not the best choice for treatment. * Follow up Tuesday in office, this advertising copywriter will call to check in 04/29. Medications: New diazepam 10 mg orally DAY ONE: Take one tab every 6 hours. Day TWO: Take one tab every 8 hours. DAY THREE: Take one tab every 12 hours. DAY 4: Take 1 tab at bedtime; 10 tabs 0RF Coding Level of Care Code New Pt Level 4 (63098) Diagnoses Alcohol use disorder, severe, dependence F10.20
== END 2023-04-28 10:32 | disposition home or self-care (01) ==
PROVIDERS: PCP Nurse Practitioner Family; Visit Provider Nurse Practitioner Psychiatric/Mental Health
DX: F10.20 Alcohol dependence, uncomplicated (principal)
CPT/HCPCS: 99204

== ENCOUNTER → 2023-04-28 09:18 | Outpatient (BNVA) | payer OTHER, SELFPAY | PROVIDERS: PCP Nurse Practitioner Family; Visit Provider Nurse Practitioner Psychiatric/Mental Health | DX: F10.20 Alcohol dependence, uncomplicated (principal) | CPT/HCPCS: 99202 ==

== ENCOUNTER 2023-05-02 09:24 | Outpatient (AMB) | payer OTHER, SELFPAY ==
--- NOTE | 2023-05-02 09:25 | A.OFFVIS_ITS ---
Intake Vital Signs 05/02/23 09:32 BP 130/72 Blood Pressure Location Lt radial Position Sitting Pulse 68 Pulse Source Pulse Oximeter Pulse Oximetry (%) 98 Oxygen Delivery Method Room Air Intake Visit Reasons: MAT Visit Intake Note: The patient presents for a mat visit Racker Octave Board Required: No Allergies amoxicillin [Augmentin] Allergy (Unknown, Verified 05/02/23 09:33) hives ciprofloxacin [From CIPRO] Allergy (Unknown, Verified 05/02/23 09:33) HIVES clavulanic acid [Augmentin] Allergy (Unknown, Verified 05/02/23 09:33) hives trazodone Allergy (Unknown, Verified 05/02/23 09:33) unknown Do you need a note to return to daycare/school/sports/work: No HPI MAT Visit HPI Details Patient presents for AUD treatment follow up Completed ETOH taper and is feeling better overall Reporting sleep is still poor. Discussed tapering Wellbutrin and transitioning off of Wellbutrin --wellbutrin can decrease seizure threshold and given patients history of withdrawal seizures, may not be the most appropriate Patient agreeable Has medical leave forms for this television writer to complete Does not wish to attend [facility] or any other type AUD treatment program aside from meeting here Has therapist who she sees weekly [facility] Medical History Fractured nose ETOH abuse Alcohol abuse Anxiety and depression Aftercare following left shoulder joint replacement surgery Surgical History History of shoulder surgery Family History Father Bladder cancer Lung cancer Eye cancer Mother HTN (hypertension) Sister No problems noted. Son No problems noted. Daughter No problems noted. Maternal Grandmother HTN (hypertension) Paternal Grandfather No problems noted. Maternal Grandfather No problems noted. Paternal Grandmother No problems noted. 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 occupational status: employed Current occupational exposures/hazards: No Cognitive needs: No Hearing needs: No Vision needs: Yes Review of Systems Const Reports as per HPI and Reports no additional complaints Physical Exam Vital Signs: Last Vital Signs Pulse 68 05/02/23 09:32 BP 130/72 05/02/23 09:32 Pulse Ox 98 05/02/23 09:32 Oxygen Delivery Method Room Air 05/02/23 09:32 Const General: cooperative, healthy appearing and no acute distress Orientation/consciousness: patient oriented x3 Neuro General: patient oriented x3 Psych Appearance: well kempt Speech and movement: Clear speech present Affect: Anxious affect present (seems to be baseline for patient ) Attitude: cooperative Assessment & Plan Assessment & Plan (1) Alcohol use disorder, severe, dependence: Code(s): F10.20 - Alcohol dependence, uncomplicated Plan: * decrease wellbutrin to 150mg XL QD * start zoloft 25mg QD and increase to 50mg QD * next visit will discuss Naltrexone to support ETOH goal of abstinence * follow up one week * medical leave forms completed and faxed Medications: New sertraline Take 1/2 tab daily for one week Then increase to 1 tab daily 50 mg PO DAILY 30 tabs 0RF bupropion HCl (Wellbutrin XL) 150 mg PO QAM 30 tabs 0RF Discontinued bupropion HCl Discontinued Reason: Doctor's Order 300 mg PO QAM 30 days 30 tabs 6RF F32.9 - Major depressive disorder, single episode, unspecified, F41.9 - Anxiety disorder, unspecified diazepam Discontinued Reason: Patient Completed Course 10 mg orally DAY ONE: Take one tab every 6 hours. Day TWO: Take one tab every 8 hours. DAY THREE: Take one tab every 12 hours. DAY 4: Take 1 tab at bedtime; 10 tabs 0RF Coding Level of Care Code Est Pt Level 4 (70329) Diagnoses Alcohol use disorder, severe, dependence F10.20
[2023-05-02 09:32] VITALS: BP 130/72; PULSE 68; O2SAT 98
== END 2023-05-02 10:00 | disposition home or self-care (01) ==
PROVIDERS: PCP Nurse Practitioner Family; Visit Provider Nurse Practitioner Psychiatric/Mental Health
DX: F10.20 Alcohol dependence, uncomplicated (principal)
CPT/HCPCS: 99214

== ENCOUNTER → 2023-05-02 09:24 | Outpatient (BNVA) | payer OTHER, SELFPAY | PROVIDERS: PCP Nurse Practitioner Family; Visit Provider Nurse Practitioner Psychiatric/Mental Health | DX: F10.20 Alcohol dependence, uncomplicated (principal) | CPT/HCPCS: 99212 ==

== ENCOUNTER 2023-05-09 09:16 | Outpatient (AMB) | payer OTHER, SELFPAY ==
--- NOTE | 2023-05-09 09:19 | A.OFFVIS_ITS ---
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 Required: No Allergies amoxicillin [Augmentin] Allergy (Unknown, Verified 05/09/23 09:25) hives ciprofloxacin [From CIPRO] Allergy (Unknown, Verified 05/09/23 09:25) HIVES clavulanic acid [Augmentin] Allergy (Unknown, Verified 05/09/23 09:25) hives trazodone Allergy (Unknown, Verified 05/09/23 09:25) unknown Do you need a note to return to daycare/school/sports/work: No HPI MAT Visit HPI Details Patient presents for AUD treatment follow up Reports she is feeling better than she did last week Some anxiety in the mornings upon awakening --but subsides throughout the morning Sleep improving, irritability improving During visit patient received phone call from her employer telling her that she i sbeing transferred to another school upon her return from leave. Patient very tearful, upset. Processed call in visit. [facility] Medical History Fractured nose ETOH abuse Alcohol abuse Anxiety and depression Aftercare following left shoulder joint replacement surgery Surgical History History of shoulder surgery Family History Father Bladder cancer Lung cancer Eye cancer Mother HTN (hypertension) Sister No problems noted. Son No problems noted. Daughter No problems noted. Maternal Grandmother HTN (hypertension) Paternal Grandfather No problems noted. Maternal Grandfather No problems noted. Paternal Grandmother No problems noted. 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 occupational status: employed Current occupational exposures/hazards: No Cognitive needs: No Hearing needs: No Vision needs: Yes Review of Systems Const Reports as per HPI Physical Exam Const General: cooperative and anxious Psych Appearance: well kempt Speech and movement: Clear speech present Affect: Anxious affect present Attitude: cooperative Thought process: Circumstantial thought process present Assessment & Plan Assessment & Plan (1) Alcohol use disorder, severe, dependence: Code(s): F10.20 - Alcohol dependence, uncomplicated Plan: * relapse prevention discussion * continue sertraline and wellbutrin at current dose * follow up one week Coding Level of Care Code Est Pt Level 4 (83990) Diagnoses Alcohol use disorder, severe, dependence F10.20
== END 2023-05-09 10:16 | disposition home or self-care (01) ==
PROVIDERS: PCP Nurse Practitioner Family; Visit Provider Nurse Practitioner Psychiatric/Mental Health
DX: F10.20 Alcohol dependence, uncomplicated (principal)
CPT/HCPCS: 99214

== ENCOUNTER → 2023-05-09 09:16 | Outpatient (BNVA) | payer OTHER, SELFPAY | PROVIDERS: PCP Nurse Practitioner Family; Visit Provider Nurse Practitioner Psychiatric/Mental Health | DX: F10.20 Alcohol dependence, uncomplicated (principal) | CPT/HCPCS: 99212 ==

== ENCOUNTER 2023-05-17 09:15 | Outpatient (AMB) | payer OTHER, SELFPAY ==
--- NOTE | 2023-05-17 09:17 | MHC.AM.SUB ---
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: No Allergies amoxicillin [Augmentin] Allergy (Unknown, Verified 05/17/23 09:24) hives ciprofloxacin [From CIPRO] Allergy (Unknown, Verified 05/17/23 09:24) HIVES clavulanic acid [Augmentin] Allergy (Unknown, Verified 05/17/23 09:24) hives trazodone Allergy (Unknown, Verified 05/17/23 09:24) unknown Do you need a note to return to daycare/school/sports/work: No HPI MAT Visit HPI Details Patient presents for AUD treatment follow up Started work on Tuesday (1/2 day)--feels okay about the change 20 days since no alcohol Feels Sertraline has been very helpful, in particular the irritability Will d/c Wellbutrin Has been taking Naltrexone (previously had script) [facility] Medical History Fractured nose ETOH abuse Alcohol abuse Anxiety and depression Aftercare following left shoulder joint replacement surgery Surgical History History of shoulder surgery Family History Father Bladder cancer Lung cancer Eye cancer Mother HTN (hypertension) Sister No problems noted. Son No problems noted. Daughter No problems noted. Maternal Grandmother HTN (hypertension) Paternal Grandfather No problems noted. Maternal Grandfather No problems noted. Paternal Grandmother No problems noted. 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 occupational status: employed Current occupational exposures/hazards: No Cognitive needs: No Hearing needs: No Vision needs: Yes Review of Systems Const Reports as per HPI and Reports no additional complaints Physical Exam Vital Signs: Last Vital Signs Pulse 74 05/17/23 09:18 BP 122/78 05/17/23 09:18 Pulse Ox 99 05/17/23 09:18 Oxygen Delivery Method Room Air 05/17/23 09:18 Const General: cooperative, healthy appearing and no acute distress Psych Appearance: well kempt Speech and movement: Clear speech present Affect: normal affect Attitude: cooperative Thought process: Normal thought process present Insight: Good insight present (Psych) Judgement: Good judgement present (Psych) Assessment & Plan Assessment & Plan (1) Alcohol use disorder, severe, dependence: Code(s): F10.20 - Alcohol dependence, uncomplicated Plan: d/c wellbutrin continue sertraline continue naltrexone follow up 3 weeks Medications: Discontinued bupropion HCl (Wellbutrin XL) Discontinued Reason: Patient no longer taking 150 mg PO QAM 30 tabs 0RF Coding Level of Care Code Est Pt Level 3 (15210) Diagnoses Alcohol use disorder, severe, dependence F10.20
[2023-05-17 09:18] VITALS: BP 122/78; PULSE 74; O2SAT 99
== END 2023-05-17 09:50 | disposition home or self-care (01) ==
PROVIDERS: PCP Nurse Practitioner Family; Visit Provider Nurse Practitioner Psychiatric/Mental Health
DX: F10.20 Alcohol dependence, uncomplicated (principal)
CPT/HCPCS: 99213

== ENCOUNTER → 2023-05-17 09:15 | Outpatient (BNVA) | payer OTHER, SELFPAY | PROVIDERS: PCP Nurse Practitioner Family; Visit Provider Nurse Practitioner Psychiatric/Mental Health | DX: F10.20 Alcohol dependence, uncomplicated (principal) | CPT/HCPCS: 99212 ==

== ENCOUNTER 2023-06-06 09:53 | Outpatient (AMB) | payer OTHER, SELFPAY ==
--- NOTE | 2023-06-06 10:17 | A.OFFVISCC_ITS ---
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 [facility] Medical History Fractured nose ETOH abuse Alcohol abuse Anxiety and depression Aftercare following left shoulder joint replacement surgery Surgical History History of shoulder surgery Family History Father Bladder cancer Lung cancer Eye cancer Mother HTN (hypertension) Sister No problems noted. Son No problems noted. Daughter No problems noted. Maternal Grandmother HTN (hypertension) Paternal Grandfather No problems noted. Maternal Grandfather No problems noted. Paternal Grandmother No problems noted. 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 occupational status: employed Current occupational exposures/hazards: No Cognitive needs: No Hearing needs: No Vision needs: Yes Review of Systems Const Reports as per HPI and Reports no additional complaints Physical Exam Vital Signs: Last Vital Signs Pulse 72 06/06/23 10:18 BP 124/70 06/06/23 10:18 Pulse Ox 98 06/06/23 10:18 Oxygen Delivery Method Room Air 06/06/23 10:18 Const General: cooperative and healthy appearing Nutritional Appearance: average body habitus Orientation/consciousness: patient oriented x3 Limitations: no limitations Neuro General: patient oriented x3 Psych Appearance: well kempt Speech and movement: Clear speech present Affect: normal affect Attitude: cooperative Thought process: Normal thought process present Thought content: Normal thought content present Insight: Good insight present (Psych) Judgement: Good judgement present (Psych) Assessment & Plan Assessment & Plan (1) Alcohol use disorder, severe, dependence: Code(s): F10.20 - Alcohol dependence, uncomplicated Plan: * relapse prevention discussion * continue sertraline * continue naltrexone * follow up 3 weeks Coding Level of Care Code Est Pt Level 3 (87573) Diagnoses Alcohol use disorder, severe, dependence F10.20
[2023-06-06 10:18] VITALS: BP 124/70; PULSE 72; O2SAT 98
== END 2023-06-06 10:49 | disposition home or self-care (01) ==
PROVIDERS: PCP Nurse Practitioner Family; Visit Provider Nurse Practitioner Psychiatric/Mental Health
DX: F10.20 Alcohol dependence, uncomplicated (principal)
CPT/HCPCS: 99213

== ENCOUNTER → 2023-06-06 09:53 | Outpatient (BNVA) | payer OTHER, SELFPAY | PROVIDERS: PCP Nurse Practitioner Family; Visit Provider Nurse Practitioner Psychiatric/Mental Health | DX: F10.20 Alcohol dependence, uncomplicated (principal) | CPT/HCPCS: 99212 ==

== ENCOUNTER 2023-07-12 09:07 | Outpatient (AMB) | payer OTHER, SELFPAY ==
[2023-07-12 09:15] VITALS: BP 122/84; PULSE 86; O2SAT 99; BMI 22.8
--- NOTE | 2023-07-12 09:15 | A.OFFVISCC_ITS ---
Intake Vital Signs 07/12/23 09:15 Height 5 ft 4 in Weight 133 lb BMI 22.8 BP 122/84 Blood Pressure Location Lt radial Position Sitting Pulse 86 Pulse Source Pulse Oximeter Pulse Oximetry (%) 99 Oxygen Delivery Method Room Air Intake Visit Reasons: MAT Visit Intake Note: the patient presents for a mat visit Cage Maker Machine Required: No Allergies amoxicillin [Augmentin] Allergy (Unknown, Verified 07/12/23 09:17) hives ciprofloxacin [From CIPRO] Allergy (Unknown, Verified 07/12/23 09:17) HIVES clavulanic acid [Augmentin] Allergy (Unknown, Verified 07/12/23 09:17) hives trazodone Allergy (Unknown, Verified 07/12/23 09:17) unknown HPI MAT Visit HPI Details Patient presents for AUD treatment follow up Continues to do well with recovery Still tolerating medications--finds sertaline to be helpful Still connected with therapy Denies any concerns related to recovery Reporting several weeks of a cough, asking for this software writer to treat Advised patient to call PCP office of access [facility] Medical History Fractured nose ETOH abuse Alcohol abuse Anxiety and depression Aftercare following left shoulder joint replacement surgery Surgical History History of shoulder surgery Family History Father Bladder cancer Lung cancer Eye cancer Mother HTN (hypertension) Sister No problems noted. Son No problems noted. Daughter No problems noted. Maternal Grandmother HTN (hypertension) Paternal Grandfather No problems noted. Maternal Grandfather No problems noted. Paternal Grandmother No problems noted. 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 occupational status: employed Current occupational exposures/hazards: No Cognitive needs: No Hearing needs: No Vision needs: Yes Review of Systems Const Reports as per HPI Physical Exam Vital Signs: Last Vital Signs Pulse 86 07/12/23 09:15 BP 122/84 07/12/23 09:15 Pulse Ox 99 07/12/23 09:15 Oxygen Delivery Method Room Air 07/12/23 09:15 BMI result Body Mass Index 22.8 Const General: cooperative and healthy appearing Nutritional Appearance: average body habitus Orientation/consciousness: patient oriented x3 Limitations: no limitations Neuro General: patient oriented x3 Psych Appearance: well kempt Speech and movement: Clear speech present Affect: normal affect Attitude: cooperative Thought process: Normal thought process present Thought content: Normal thought content present Insight: Good insight present (Psych) Judgement: Good judgement present (Psych) Assessment & Plan Assessment & Plan (1) Alcohol use disorder, severe, dependence: Code(s): F10.20 - Alcohol dependence, uncomplicated Plan: * relapse prevention discussion * continue sertraline * continue naltrexone * follow up 8 weeks Coding Level of Care Code Est Pt Level 3 (53454) Diagnoses Alcohol use disorder, severe, dependence F10.20
== END 2023-07-12 10:30 | disposition home or self-care (01) ==
PROVIDERS: PCP Nurse Practitioner Family; Visit Provider Nurse Practitioner Psychiatric/Mental Health
DX: F10.20 Alcohol dependence, uncomplicated (principal)
CPT/HCPCS: 99213

== ENCOUNTER → 2023-07-12 09:07 | Outpatient (BNVA) | payer OTHER, SELFPAY | PROVIDERS: PCP Nurse Practitioner Family; Visit Provider Nurse Practitioner Psychiatric/Mental Health | DX: F10.20 Alcohol dependence, uncomplicated (principal) | CPT/HCPCS: 99212 ==

== ENCOUNTER 2023-07-27 15:41 | Outpatient (AMB) | payer OTHER, SELFPAY ==
--- NOTE | 2023-07-27 15:44 | MHC.AM.SUB ---
Intake Vital Signs 07/27/23 15:50 BP 110/70 Blood Pressure Location Lt radial Position Sitting Pulse 93 Pulse Source Pulse Oximeter Pulse Oximetry (%) 98 Oxygen Delivery Method Room Air Intake Visit Reasons: MAT Visit Intake Note: the patient presents for a mat visit Pressurization Mechanic Required: No Allergies amoxicillin [Augmentin] Allergy (Unknown, Verified 07/27/23 15:52) hives ciprofloxacin [From CIPRO] Allergy (Unknown, Verified 07/27/23 15:52) HIVES clavulanic acid [Augmentin] Allergy (Unknown, Verified 07/27/23 15:52) hives trazodone Allergy (Unknown, Verified 07/27/23 15:52) unknown Do you need a note to return to daycare/school/sports/work: No HPI MAT Visit HPI Details Patient presents for follow up of AUD She reports that she relapsed for one week-- drinking 10 nips per day Tuesday stopped--vomiting, vertigo Went to [facility] and admitted for withdrawal management Provider at [facility] wrote for her to return to work on Tuesday, 07/31 Discussed any triggers leading to drinking and she stated that numerous things happened around the same time, including her friend passing away, nephew passing away and her car breaking down. She is concerned she is going to lose her job due to calling out for the week. Discussed supports--she is still engaged with her therapist and friends who check in on her. She reports her daughter is upset with her. ON LICENSE OF [facility] Medical History Fractured nose ETOH abuse Alcohol abuse Anxiety and depression Aftercare following left shoulder joint replacement surgery Surgical History History of shoulder surgery Family History Father Bladder cancer Lung cancer Eye cancer Mother HTN (hypertension) Sister No problems noted. Son No problems noted. Daughter No problems noted. Maternal Grandmother HTN (hypertension) Paternal Grandfather No problems noted. Maternal Grandfather No problems noted. Paternal Grandmother No problems noted. 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 occupational status: employed Current occupational exposures/hazards: No Cognitive needs: No Hearing needs: No Vision needs: Yes Review of Systems Const Reports as per HPI and Reports malaise Psych Reports abnormal sleep pattern and Reports anxiety Physical Exam Vital Signs: Last Vital Signs Pulse 93 07/27/23 15:50 BP 110/70 07/27/23 15:50 Pulse Ox 98 07/27/23 15:50 Oxygen Delivery Method Room Air 07/27/23 15:50 Assessment & Plan Assessment & Plan (1) Alcohol use disorder, severe, dependence: Code(s): F10.20 - Alcohol dependence, uncomplicated Plan: patient to restart naltrexone and vitamins as well as medications provided on discharge follow up one week Medications: New naltrexone 50 mg PO DAILY 30 tabs 3RF trazodone take 1/2-one tab at bedtime as needed for sleep 25 mg (1/2 x 50 mg) PO DAILY PRN 10 tabs 0RF sleep Discontinued quetiapine (Seroquel) Discontinued Reason: Patient no longer taking 25 mg PO BEDTIME 30 tabs 2RF Coding Level of Care Code Est Pt Level 4 (71548) Diagnoses Alcohol use disorder, severe, dependence F10.20
[2023-07-27 15:50] VITALS: BP 110/70; PULSE 93; O2SAT 98
== END 2023-07-27 16:24 | disposition home or self-care (01) ==
PROVIDERS: PCP Nurse Practitioner Family; Visit Provider Nurse Practitioner Psychiatric/Mental Health
DX: F10.20 Alcohol dependence, uncomplicated (principal)
CPT/HCPCS: 99214

== ENCOUNTER → 2023-07-27 15:41 | Outpatient (BNVA) | payer OTHER, SELFPAY | PROVIDERS: PCP Nurse Practitioner Family; Visit Provider Nurse Practitioner Psychiatric/Mental Health | DX: F10.20 Alcohol dependence, uncomplicated (principal) | CPT/HCPCS: 99212 ==

== ENCOUNTER 2023-08-05 14:34 | Outpatient (AMB) | payer OTHER, SELFPAY ==
[2023-08-05 14:44] VITALS: BP 146/88; PULSE 92; O2SAT 96
--- NOTE | 2023-08-05 14:44 | MHC.AM.SUB ---
Intake Vital Signs 08/05/23 14:44 BP 146/88 H Blood Pressure Location Lt radial Position Sitting Pulse 92 Pulse Source Pulse Oximeter Pulse Oximetry (%) 96 Oxygen Delivery Method Room Air Intake Visit Reasons: MAT Visit Intake Note: The patient presents for a mat visit Refrigerator Glazier Required: No Allergies amoxicillin [Augmentin] Allergy (Unknown, Verified 08/05/23 14:46) hives ciprofloxacin [From CIPRO] Allergy (Unknown, Verified 08/05/23 14:46) HIVES clavulanic acid [Augmentin] Allergy (Unknown, Verified 08/05/23 14:46) hives trazodone Allergy (Unknown, Verified 08/05/23 14:46) unknown Do you need a note to return to daycare/school/sports/work: No HPI MAT Visit HPI Details Patient presents for follow up Still abstaining from alcohol Reports feeling nausea more often back to work, feels relieved to be back [facility] Medical History Fractured nose ETOH abuse Alcohol abuse Anxiety and depression Aftercare following left shoulder joint replacement surgery Surgical History History of shoulder surgery Family History Father Bladder cancer Lung cancer Eye cancer Mother HTN (hypertension) Sister No problems noted. Son No problems noted. Daughter No problems noted. Maternal Grandmother HTN (hypertension) Paternal Grandfather No problems noted. Maternal Grandfather No problems noted. Paternal Grandmother No problems noted. 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 occupational status: employed Current occupational exposures/hazards: No Cognitive needs: No Hearing needs: No Vision needs: Yes Review of Systems Const Reports as per HPI Physical Exam Vital Signs: Last Vital Signs Pulse 92 08/05/23 14:44 BP 146/88 H 08/05/23 14:44 Pulse Ox 96 08/05/23 14:44 Oxygen Delivery Method Room Air 08/05/23 14:44 Const General: cooperative and healthy appearing Nutritional Appearance: average body habitus Orientation/consciousness: patient oriented x3 Neuro General: patient oriented x3 Psych Speech and movement: Clear speech present Affect: Anxious affect present Attitude: cooperative Assessment & Plan Assessment & Plan (1) Alcohol use disorder, severe, dependence: Code(s): F10.20 - Alcohol dependence, uncomplicated Plan: no medication changes follow up 2 weeks relapse prevention discussion Coding Level of Care Code Est Pt Level 3 (10311) Diagnoses Alcohol use disorder, severe, dependence F10.20
== END 2023-08-05 15:09 | disposition home or self-care (01) ==
PROVIDERS: PCP Nurse Practitioner Family; Visit Provider Nurse Practitioner Psychiatric/Mental Health
DX: F10.20 Alcohol dependence, uncomplicated (principal)
CPT/HCPCS: 99213

== ENCOUNTER → 2023-08-05 14:34 | Outpatient (BNVA) | payer OTHER, SELFPAY | PROVIDERS: PCP Nurse Practitioner Family; Visit Provider Nurse Practitioner Psychiatric/Mental Health | DX: F10.20 Alcohol dependence, uncomplicated (principal) | CPT/HCPCS: 99212 ==

== ENCOUNTER 2023-08-22 13:51 | Outpatient (AMB) | payer OTHER, SELFPAY ==
--- NOTE | 2023-08-22 13:52 | A.OFFVISCC_ITS ---
Intake Vital Signs 08/22/23 13:56 BP 118/74 Blood Pressure Location Lt radial Position Sitting Pulse 85 Pulse Source Pulse Oximeter Pulse Oximetry (%) 99 Oxygen Delivery Method Room Air Intake Visit Reasons: MAT Visit Intake Note: the patient presents for a mat visit Narcotics And Vice Detective Required: No Allergies amoxicillin [Augmentin] Allergy (Unknown, Verified 08/22/23 13:57) hives ciprofloxacin [From CIPRO] Allergy (Unknown, Verified 08/22/23 13:57) HIVES clavulanic acid [Augmentin] Allergy (Unknown, Verified 08/22/23 13:57) hives trazodone Allergy (Unknown, Verified 08/22/23 13:57) unknown Do you need a note to return to daycare/school/sports/work: No HPI MAT Visit HPI Details Patient presents for AUD treatment follow up Reports it has been 30 days since her last drink Feeling more like herself Spending time with her daughter as she previously did Feels well supported sleep improved, nausea improved no questions or concern at this time [facility] Medical History Fractured nose ETOH abuse Alcohol abuse Anxiety and depression Aftercare following left shoulder joint replacement surgery Surgical History History of shoulder surgery Family History Father Bladder cancer Lung cancer Eye cancer Mother HTN (hypertension) Sister No problems noted. Son No problems noted. Daughter No problems noted. Maternal Grandmother HTN (hypertension) Paternal Grandfather No problems noted. Maternal Grandfather No problems noted. Paternal Grandmother No problems noted. 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 occupational status: employed Current occupational exposures/hazards: No Cognitive needs: No Hearing needs: No Vision needs: Yes Review of Systems Const Reports as per HPI and Reports no additional complaints Physical Exam Vital Signs: Last Vital Signs Pulse 85 08/22/23 13:56 BP 118/74 08/22/23 13:56 Pulse Ox 99 08/22/23 13:56 Oxygen Delivery Method Room Air 08/22/23 13:56 Const General: cooperative, healthy appearing and no acute distress Nutritional Appearance: average body habitus Orientation/consciousness: patient oriented x3 Limitations: no limitations Neuro General: patient oriented x3 Psych Speech and movement: Normal speech and movement present Affect: normal affect Attitude: cooperative Thought process: Normal thought process present Thought content: Normal thought content present Insight: Good insight present (Psych) Judgement: Good judgement present (Psych) Assessment & Plan Assessment & Plan (1) Alcohol use disorder, severe, dependence: Code(s): F10.20 - Alcohol dependence, uncomplicated Plan: * continue naltrexone * continue sertraline at current dose * follow up 3 weeks Coding Level of Care Code Est Pt Level 3 (21374) Diagnoses Alcohol use disorder, severe, dependence F10.20
[2023-08-22 13:56] VITALS: BP 118/74; PULSE 85; O2SAT 99
== END 2023-08-22 14:27 | disposition home or self-care (01) ==
PROVIDERS: PCP Nurse Practitioner Family; Visit Provider Nurse Practitioner Psychiatric/Mental Health
DX: F10.20 Alcohol dependence, uncomplicated (principal)
CPT/HCPCS: 99213

== ENCOUNTER → 2023-08-22 13:51 | Outpatient (BNVA) | payer OTHER, SELFPAY | PROVIDERS: PCP Nurse Practitioner Family; Visit Provider Nurse Practitioner Psychiatric/Mental Health | DX: F10.20 Alcohol dependence, uncomplicated (principal); Z79.899 Other long term (current) drug therapy | CPT/HCPCS: 99212 ==

== ENCOUNTER 2023-09-07 13:03 | Outpatient (AMB) | payer OTHER, SELFPAY ==
--- NOTE | 2023-09-07 13:09 | MHC.PC.OV ---
Vital Signs 09/07/23 13:11 Height 5 ft 4 in Weight 130 lb BMI 22.3 BP 114/70 Blood Pressure Location Lt brachial Position Sitting Pulse 62 Pulse Source Pulse Oximeter Pulse Oximetry (%) 99 Oxygen Delivery Method Room Air Intake Visit Reasons: Annual PE Intake Note: Patient here for physical exam, pt would like to talk about right ring finger getting stuck . Mammo: rescheduled appt, not up to date. colonoscopy: denied cologuard: has not done yet. Allergies amoxicillin [Augmentin] Allergy (Unknown, Verified 09/07/23 13:30) hives ciprofloxacin [From CIPRO] Allergy (Unknown, Verified 09/07/23 13:30) HIVES clavulanic acid [Augmentin] Allergy (Unknown, Verified 09/07/23 13:30) hives trazodone Allergy (Unknown, Verified 09/07/23 13:30) unknown Medication List - Last Reconciled 09/07/23 by Jayden Mayfield, BALL FRINGE MACHINE OPERATOR- albuterol sulfate 90 mcg/actuation (Ventolin HFA) 2 puffs inhalation Q6H PRN albuterol sulfate 90 mcg/actuation 2 puffs inhalation Q6H PRN cholecalciferol (vitamin D3) 50 mcg PO DAILY clonazepam 0.5 mg PO BID PRN 20 days fluticasone propion-salmeterol 250-50 mcg/dose 1 inh inhalation BID meclizine 25 mg PO DAILY PRN naltrexone 50 mg PO DAILY omeprazole 40 mg PO DAILY 90 days ondansetron HCl 4 mg PO Q8H PRN 20 days quetiapine 25 mg PO BEDTIME rosuvastatin 5 mg PO DAILY sertraline 50 mg PO DAILY trazodone 25 mg (1/2 x 50 mg) PO DAILY PRN Tobacco use date assessed: 09/07/23 Dental Screening Dental Screen Date: 09/07/23 Did you have a dental visit in the last 12 months?: Yes Did you have a dental problem in the last 6 months where you did not have access to dental care?: No Was dental information given to patient?: Patient has dentist HPI Annual PE HPI Details Pt is here for a PE. Will order labs. Pt is following up with addiction medicine due to alcohol abuse. Mammo is scheduled. 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 Pt reports trigger finger of her right ring finger. Will refer to ortho. Pt has the cologuard but has not done it yet. FOR[facility]LY [facility] Medical History Fractured nose ETOH abuse Alcohol abuse Anxiety and depression Aftercare following left shoulder joint replacement surgery Surgical History History of shoulder surgery Family History Father Bladder cancer Lung cancer Eye cancer Mother HTN (hypertension) Sister No problems noted. Son No problems noted. Daughter No problems noted. Maternal Grandmother HTN (hypertension) Paternal Grandfather No problems noted. Maternal Grandfather No problems noted. Paternal Grandmother No problems noted. 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 occupational status: employed Current occupational exposures/hazards: No Cognitive needs: No Hearing needs: No Vision needs: Yes Questionnaire PHQ-9 Over the last 2 weeks, how often have you been bothered by any of the following problems? 1. Little interest or pleasure in doing things: not at all 2. Feeling down, depressed, or hopeless: several days 3. Trouble falling or staying asleep, or sleeping too much: several days 4. Feeling tired or having little energy: not at all 5. Poor appetite or overeating: several days 6. Feeling bad about yourself - or that you are a failure or have let yourself or your family down: several days 7. Trouble concentrating on things, such as reading the newspaper or watching television: not at all 8. Moving or speaking so slowly that other people could have noticed. Or the opposite - being so fidgety or restless that you have been moving around a lot more than usual: not at all 9. Thoughts that you would be better off or of hurting yourself in some way: not at all Total score: 4 Depression Screening Interpretation: Negative Depression Screening Done: Yes 36069 - PHQ-9 Billing: Yes Source: Developed by Drs. Usama Wheeler, Vraun Harding and colleagues, with an educational brian from [employer]. Thrive Questionnaire Date Thrive assessed: 09/07/23 I am a: Patient What is your living situation today?: I have a steady place to live Within the past 12 months, did the food you bought not last and you didn't have the money to get more?: Sometimes True Within the past 12 months, did you worry whether your food would run out before you got money to buy more?: Sometimes True Do you have trouble paying for medicines?: No Do you have trouble getting transportation to medical appointments?: No Do you have trouble paying your heating and electricity bill?: Yes Do you have trouble taking care of your child, family member or friend?: No Do you have trouble with day-to-day activities such as bathing, preparing meals, shopping, managing finances, etc.?: No Are you currently unemployed and looking for a job?: Yes Are you interested in more education?: No Currently or been in a relationship where the following occur: I choose not to answer this question THRIVE Score: 3 AUDIT C Alcohol Use Questionnaire (AUDIT-C) 1. How often do you have a drink containing alcohol?: Never 3. How often do you have six or more drinks on one occasion?: Never Total Score: 0 Score Reviewed/Action Taken: No TOMAS-7 AMB Questionnaire TOMAS-7 Date TOMAS - 7 assessed: 09/07/23 Feeling nervous, anxious, or on edge: 1 = Several days Not being able to stop or control worryin = Several days Worrying too much about different things: 2 = More than half the days Trouble relaxin = More than half the days Being so restless that it is hard to sit still: 0 = Not at all Becoming easily annoyed or irritable: 0 = Not at all Feeling afraid as if something awful might happen: 0 = Not at all Total TOMAS-7 score (0-4 normal; 5-9 mild; 10-14 moderate; 15-21 severe): 6 Source: Developed by Veda Jeffers Kurt Kroenke and colleagues, with an educational brian from [employer]. TOMAS-7 Assessment Billing TOMAS-7 Assessment Tool: TOMAS-7 Assessment 72277 Review of Systems Const Denies chills and Denies fever(s) Eyes Denies blurry vision ENT Denies vertigo, Denies dizziness and Denies sore throat Card Denies chest pain at rest, Denies chest pain with activity, Denies diaphoresis, Denies dyspnea and Denies dyspnea on exertion Resp Denies cough, Denies dyspnea, Denies dyspnea on exertion and Denies wheezing GI Denies abdominal pain, Denies melena, Denies hematochezia, Denies constipation, Denies diarrhea and Denies loose stools Denies hematuria Musc Denies numbness and Denies tingling Skin/Breast Denies lesions Neuro Denies vertigo, Denies dizziness, Denies numbness and Denies tingling Psych Denies anxiety, Denies depression, Denies homicidal ideation, Denies suicidal ideation and Denies other (substance abuse) Aller/Immun Denies wheezing Physical exam (Primary Care) Vital Signs: Last Vital Signs Pulse 62 09/07/23 13:11 BP 114/70 09/07/23 13:11 Pulse Ox 99 09/07/23 13:11 Oxygen Delivery Method Room Air 09/07/23 13:11 BMI result Body Mass Index 22.3 Tobacco/Smoking Status: Tobacco use Status Tobacco use date assessed 09/07/23 09/07/23 13:16 Patient Tobacco Use Status Former Tobacco user 09/07/23 13:16 e-Cigarette/Vaping Use Never Used 09/07/23 13:16 PHQ-9: PHQ-9 Score PHQ-9: Total score 4 09/07/23 17:49 Depression Screening Interpretation: Negative Thrive Assessment: Date of Thrive Assessment Date Thrive assessed 09/07/23 09/07/23 14:00 Currently or been in a relationship where the following occur: I choose not to answer this question Const General: cooperative Nutritional Appearance: well nourished Orientation/consciousness: patient oriented x3 HENMT Head: Yes normal to inspection, Yes normocephalic and Yes atraumatic Ears: TM's normal bilaterally Eyes General: appearance normal, both eyes and all related structures Alignment and Position: alignment normal and position normal Neck Neck: Yes normal visual inspection and Yes no lymphadenopathy Thyroid: Thyroid normal Resp Effort & Inspection: normal respiratory effort Auscultation: clear to auscultation bilaterally Cardio Rate: regular rate Rhythm: regular rhythm Heart sounds: S1 normal heart sound present, S2 normal heart sound present and no murmurs GI Palpation (GI): Soft to palpation and nontender Auscultation: normal bowel sounds Skin Rashes: no rashes Neuro General: patient oriented x3, moves all extremities, no focal motor deficits and deep tendon reflexes 2+ bilaterally Romberg Test: Negative Extrem Other: trigger finger to right ring finger, onychomycosis noted to bilat toenails Psych Appearance: grossly normal Mental Status: mental status grossly normal Speech and movement: Normal speech and movement present Affect: normal affect Attitude: cooperative Thought process: Normal thought process present Thought content: Normal thought content present Insight: Good insight present (Psych) Judgement: Good judgement present (Psych) Assessment and Plan Assessment & Plan (1) Physical exam: Code(s): Z00.00 - Encounter for general adult medical examination without abnormal findings Plan: Labs ordered (2) Trigger finger: Code(s): M65.30 - Trigger finger, unspecified finger Plan: Referred to ortho (3) Vitamin D deficiency: Code(s): E55.9 - Vitamin D deficiency, unspecified Plan: Bone density ordered, vitamin d ordered (4) Postmenopausal: Code(s): Z78.0 - Asymptomatic menopausal state Plan: Bone density ordered Plan The patient agreed to the use of a medical delivery driver for this encounter. Scribed for JEROME Avalos by Nimo Tierney medical delivery driver, on 09/07/2023 at 13:25 EST. Orders: Orders Comprehensive [place]. Panel Fast Today Z00.00 - Encounter for general adult medical examination without abnormal findings TSH reflex Free T4 Today Z00.00 - Encounter for general adult medical examination without abnormal findings Lipid Panel Today Z00.00 - Encounter for general adult medical examination without abnormal findings XR DEXA axial skeleton Today E55.9 - Vitamin D deficiency, unspecified, Z78.0 - Asymptomatic menopausal state Vitamin D 25-OH Total Today E55.9 - Vitamin D deficiency, unspecified, Z78.0 - Asymptomatic menopausal state Complete Blood Count Auto Diff Today Z00.00 - Encounter for general adult medical examination without abnormal findings UA CC w/rflx Micro + Cult Today Z00.00 - Encounter for general adult medical examination without abnormal findings Referrals Orthopedics Referral M65.30 - Trigger finger, unspecified finger Coding Level of Care Code Est Pt Prev Care 40-64y(00504) Diagnoses Physical exam Z00.00 Trigger finger M65.30 Vitamin D deficiency E55.9 Postmenopausal Z78.0 Additional Codes TOMAS-7 Assessment Billing - TOMAS-7 Assessment Tool: TOMAS-7 Assessment [id number] ([id number])
[2023-09-07 13:11] VITALS: BP 114/70; PULSE 62; O2SAT 99; BMI 22.3
== END 2023-09-07 15:32 | disposition home or self-care (01) ==
PROVIDERS: PCP Nurse Practitioner Family; Visit Provider Nurse Practitioner Family
DX: Z00.00 Encounter for general adult medical examination without abnormal findings (principal); M65.341 Trigger finger, right ring finger; E55.9 Vitamin D deficiency, unspecified; Z78.0 Asymptomatic menopausal state
CPT/HCPCS: 99396

== ENCOUNTER 2023-09-07 16:04 | Outpatient (AMB) | payer OTHER, SELFPAY ==
--- NOTE | 2023-09-07 16:05 | MHC.AM.SUB ---
Intake Intake Visit Reasons: MAT- Tele Allergies amoxicillin [Augmentin] Allergy (Unknown, Verified 09/07/23 13:30) hives ciprofloxacin [From CIPRO] Allergy (Unknown, Verified 09/07/23 13:30) HIVES clavulanic acid [Augmentin] Allergy (Unknown, Verified 09/07/23 13:30) hives trazodone Allergy (Unknown, Verified 09/07/23 13:30) unknown HPI MAT- Tele HPI Details Patient presents for follow up via telehealth Reports no issues related to recovery PCP appt today No issues related to medications No questions or concerns at this time [facility] Medical History Fractured nose ETOH abuse Alcohol abuse Anxiety and depression Aftercare following left shoulder joint replacement surgery Surgical History History of shoulder surgery Family History Father Bladder cancer Lung cancer Eye cancer Mother HTN (hypertension) Sister No problems noted. Son No problems noted. Daughter No problems noted. Maternal Grandmother HTN (hypertension) Paternal Grandfather No problems noted. Maternal Grandfather No problems noted. Paternal Grandmother No problems noted. 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 occupational status: employed Current occupational exposures/hazards: No Cognitive needs: No Hearing needs: No Vision needs: Yes Review of Systems Const Reports as per HPI and Reports no additional complaints Assessment & Plan Assessment & Plan (1) Alcohol use disorder, severe, dependence: Code(s): F10.20 - Alcohol dependence, uncomplicated Plan: continue naltrexone continue sertraline at current dose follow up 3 weeks Telehealth Telehealth Location of provider rendering services: practice address Location of patient: address on file Patient Identification confirmed using: Name, : Yes Telehealth method: voice only Patient verbally consented to treatment: Yes Patient verbally consented to billing insurance company: Yes Coding Level of Care Code Tele Est Pt Level 3 (28306) Diagnoses Alcohol use disorder, severe, dependence F10.20 Time Spent (min) 25 Comment 15 mins with patient remainder on chart review and documentation
== END 2023-09-07 16:20 | disposition home or self-care (01) ==
PROVIDERS: PCP Nurse Practitioner Family; Visit Provider Nurse Practitioner Psychiatric/Mental Health
DX: F10.20 Alcohol dependence, uncomplicated (principal)
CPT/HCPCS: 99213

== ENCOUNTER → 2023-09-07 16:04 | Outpatient (BNVA) | payer OTHER, SELFPAY | PROVIDERS: PCP Nurse Practitioner Family; Visit Provider Nurse Practitioner Psychiatric/Mental Health ==

== ENCOUNTER 2023-09-30 13:38 | Outpatient (AMB) | payer OTHER, SELFPAY ==
--- NOTE | 2023-09-30 13:49 | A.OFFVISCC_ITS ---
Intake Visit Reasons: MAT Visit Allergies amoxicillin [Augmentin] Allergy (Unknown, Verified 09/07/23 13:30) hives ciprofloxacin [From CIPRO] Allergy (Unknown, Verified 09/07/23 13:30) HIVES clavulanic acid [Augmentin] Allergy (Unknown, Verified 09/07/23 13:30) hives trazodone Allergy (Unknown, Verified 09/07/23 13:30) unknown HPI HPI MAT Visit: Details: Patient presents for AUD treatment follow up Recently medically admitted for alcohol withdrawal tearful, grieving loss of her friend sertraline increased to 75mg QD while inpatient discussed IOP --patient open to this idea information for [facility] provided [facility] Medical History Fractured nose ETOH abuse Alcohol abuse Anxiety and depression Aftercare following left shoulder joint replacement surgery Surgical History History of shoulder surgery Family History Father Bladder cancer Lung cancer Eye cancer Mother HTN (hypertension) Sister No problems noted. Son No problems noted. Daughter No problems noted. Maternal Grandmother HTN (hypertension) Paternal Grandfather No problems noted. Maternal Grandfather No problems noted. Paternal Grandmother No problems noted. 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 occupational status: employed Current occupational exposures/hazards: No Cognitive needs: No Hearing needs: No Vision needs: Yes Review of Systems Const Reports as per HPI and Reports difficulty sleeping Physical Exam Const General: cooperative and anxious Nutritional Appearance: average body habitus Orientation/consciousness: patient oriented x3 Neuro General: patient oriented x3 Psych Appearance: grossly normal Speech and movement: Clear speech present Affect: Sad affect present Attitude: cooperative Thought process: Normal thought process present Thought content: Depressive thoughts present Insight: Good insight present (Psych) Judgement: Good judgement present (Psych) Assessment & Plan Assessment & Plan (1) Alcohol use disorder, severe, dependence: Code(s): F10.20 - Alcohol dependence, uncomplicated Category: Medical Plan: * continue medications (naltrexone and sertraline) * realpse prevention discussion * patient to call [facility] for possible admission to their [facility] (evening)
== END 2023-09-30 14:09 | disposition home or self-care (01) ==
PROVIDERS: PCP Nurse Practitioner Family; Visit Provider Nurse Practitioner Psychiatric/Mental Health
DX: F10.20 Alcohol dependence, uncomplicated (principal)
CPT/HCPCS: 99214

== ENCOUNTER → 2023-09-30 13:38 | Outpatient (BNVA) | payer OTHER, SELFPAY | PROVIDERS: PCP Nurse Practitioner Family; Visit Provider Nurse Practitioner Psychiatric/Mental Health | DX: F10.20 Alcohol dependence, uncomplicated (principal) | CPT/HCPCS: 99212 ==

== ENCOUNTER 2023-10-05 14:33 | Outpatient (AMB) | payer OTHER, SELFPAY ==
--- NOTE | 2023-10-05 14:33 | MHC.AM.SUB ---
Intake Visit Reasons: MAT Tele Allergies amoxicillin [Augmentin] Allergy (Unknown, Verified 09/07/23 13:30) hives ciprofloxacin [From CIPRO] Allergy (Unknown, Verified 09/07/23 13:30) HIVES clavulanic acid [Augmentin] Allergy (Unknown, Verified 09/07/23 13:30) hives trazodone Allergy (Unknown, Verified 09/07/23 13:30) unknown HPI HPI MAT Tele: Details: Patient presents for follow up via telehealth [facility] on the phone--reporting she is in a much better space than she was when seen in the office last week Her work environment is very supportive as is her neighbor and mother No alcohol since prior to hospital admission a couple weeks ago Still has to call [facility]--planning on it [facility] Medical History Fractured nose ETOH abuse Alcohol abuse Anxiety and depression Aftercare following left shoulder joint replacement surgery Surgical History History of shoulder surgery Family History Father Bladder cancer Lung cancer Eye cancer Mother HTN (hypertension) Sister No problems noted. Son No problems noted. Daughter No problems noted. Maternal Grandmother HTN (hypertension) Paternal Grandfather No problems noted. Maternal Grandfather No problems noted. Paternal Grandmother No problems noted. 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 occupational status: employed Current occupational exposures/hazards: No Cognitive needs: No Hearing needs: No Vision needs: Yes Review of Systems Const Reports as per HPI and Reports no additional complaints Telehealth Telehealth Telehealth Platform: Telephone Location of provider rendering services: practice address Location of patient: address on file Patient Identification confirmed using: Name, : Yes Telehealth method: voice only Patient verbally consented to treatment: Yes Patient verbally consented to billing insurance company: Yes Minutes spent on Phone/Video with Pt.: 20 Assessment & Plan Assessment & Plan (1) Alcohol use disorder, severe, dependence: Code(s): F10.20 - Alcohol dependence, uncomplicated Category: Medical Plan: continue medications (naltrexone and sertraline) relapse prevention discussion follow up 2 weeks
== END 2023-10-05 14:53 | disposition home or self-care (01) ==
PROVIDERS: PCP Nurse Practitioner Family; Visit Provider Nurse Practitioner Psychiatric/Mental Health
DX: F10.20 Alcohol dependence, uncomplicated (principal)
CPT/HCPCS: 99213

== ENCOUNTER → 2023-10-05 14:33 | Outpatient (BNVA) | payer OTHER, SELFPAY | PROVIDERS: PCP Nurse Practitioner Family; Visit Provider Nurse Practitioner Psychiatric/Mental Health | DX: F10.20 Alcohol dependence, uncomplicated (principal) | CPT/HCPCS: 99212 ==

== ENCOUNTER 2023-10-06 13:59 | Outpatient (REF) | payer OTHER, SELFPAY ==
--- NOTE | ~2023-10-06 | MM_ITS ---
EXAMINATION: BONE DENSITOMETRY CLINICAL INDICATION: Vitamin D deficiency. COMPARISON: This is the patient's baseline examination. TECHNIQUE: Using a Tachyus DXA System (software version: 13.1) manufactured by [employer], dual-energy x-ray absorptiometry was performed of the lumbar spine and left hip. The images are of good technical quality. Summary results are attached. FINDINGS: LEFT FEMUR, NECK: BMD 0.866 g/cm2, Z-score 0.0, T-score -1.2, osteopenia. LEFT FEMUR, TOTAL: BMD 0.844 g/cm2, Z-score -0.4, T-score -1.3, osteopenia. AP SPINE L1-L4: BMD 0.932 g/cm2, Z-score -0.9, T-score -2.1, osteopenia. IDENTIFIED RISK FACTORS: Early menopause, height loss, secondary osteoporosis. HISTORY OF FRACTURE: None listed. MEDICATIONS: Vitamin D. MM/XR DEXA axial skeleton IMPRESSION: 1. DIAGNOSIS: Osteopenia based on the lowest T-score value of -2.1 in the lumbar spine applying World Health Organization criteria. 2. 10-YEAR FRACTURE RISK PREDICTION, FRAX: Major osteoporotic fracture (clinical spine, forearm, hip or shoulder) 6.5%. Hip fracture 0.4%. 3. Treatment Recommendations: NOF guidelines recommend consideration for treatment in postmenopausal women and men age 50 and older presenting with the following: -A hip or vertebral (clinical or morphometric) fracture. -T-score less than or equal to -2.5 at the femoral neck or spine after appropriate evaluation to exclude secondary causes. -Low bone mass at the hip or spine and a 10-year fracture probability by FRAX of greater than or equal to 3% for hip fracture or greater than or equal to 20% for major osteoporotic fracture based on the [place] adapted WHO algorithm. 4. Other Recommendations: All treatment decisions require clinical judgment and consideration of individual patient factors, including patient preferences, comorbidities, previous drug use, risk factors not captured in the FRAX model (e.g. frailty, falls, vitamin D deficiency, increased bone turnover, interval significant decline in bone density) and possible under or overestimation of fracture risk by FRAX. Additional medical evaluation for secondary cause of low bone mineral density may be appropriate. FUTURE SCAN RECOMMENDATION: People with diagnosed cases of osteoporosis or at high risk for fracture should have regular bone mineral density tests. For patients eligible for Medicare, routine testing is allowed once every 2 years. The testing frequency can be increased to one year for patients who have rapidly progressing disease, those who are receiving or discontinuing medical therapy to restore bone mass, or have additional risk factors.
== END 2023-10-06 14:00 | disposition home or self-care (01) ==
LOC: HO.MAMMO 13:59
PROVIDERS: PCP Nurse Practitioner Family; Visit Provider Nurse Practitioner Family
DX: Z12.31 Encounter for screening mammogram for malignant neoplasm of breast (principal); Z13.820 Encounter for screening for osteoporosis; Z78.0 Asymptomatic menopausal state; E55.9 Vitamin D deficiency, unspecified
CPT/HCPCS: 77063; 77067; 77080

== ENCOUNTER → 2023-10-06 14:30 | Outpatient (BNV) | payer OTHER, SELFPAY | PROVIDERS: PCP Nurse Practitioner Family; Visit Provider Radiology Diagnostic Radiology | DX: Z12.31 Encounter for screening mammogram for malignant neoplasm of breast (principal) | CPT/HCPCS: 77063; 77067 ==

== ENCOUNTER 2023-11-02 13:59 | Outpatient (AMB) | payer OTHER, SELFPAY ==
--- NOTE | 2023-11-02 14:01 | A.OFFVIS_ITS ---
Vital Signs 11/02/23 14:02 BP 138/72 Blood Pressure Location Rt brachial Position Sitting Pulse 84 Pulse Source Pulse Oximeter Pulse Oximetry (%) 98 Oxygen Delivery Method Room Air Intake Visit Reasons: MAT Visit Allergies amoxicillin [Augmentin] Allergy (Unknown, Verified 11/02/23 14:01) hives ciprofloxacin [From CIPRO] Allergy (Unknown, Verified 11/02/23 14:01) HIVES clavulanic acid [Augmentin] Allergy (Unknown, Verified 11/02/23 14:01) hives trazodone Allergy (Unknown, Verified 11/02/23 14:01) unknown HPI HPI MAT Visit: Details: Patient presents for AUD treatment follow up Called [facility] 3-4nights per week (5-8p) Not a good fit for her right now Discussed [facility] and provided her with information Continues to abstain from alcohol REPLACED BY [facility] Medical History Fractured nose ETOH abuse Alcohol abuse Anxiety and depression Aftercare following left shoulder joint replacement surgery Surgical History History of shoulder surgery Family History Father Bladder cancer Lung cancer Eye cancer Mother HTN (hypertension) Sister No problems noted. Son No problems noted. Daughter No problems noted. Maternal Grandmother HTN (hypertension) Paternal Grandfather No problems noted. Maternal Grandfather No problems noted. Paternal Grandmother No problems noted. 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 occupational status: employed Current occupational exposures/hazards: No Cognitive needs: No Hearing needs: No Vision needs: Yes Review of Systems Const Reports as per HPI and Reports no additional complaints Physical Exam Vital Signs: Last Vital Signs Pulse 84 11/02/23 14:02 BP 138/72 11/02/23 14:02 Pulse Ox 98 11/02/23 14:02 Oxygen Delivery Method Room Air 11/02/23 14:02 Const General: cooperative, healthy appearing and well groomed Nutritional Appearance: average body habitus Orientation/consciousness: patient oriented x3 Limitations: no limitations Neuro General: patient oriented x3 Assessment & Plan Assessment & Plan (1) Alcohol use disorder, severe, dependence: Code(s): F10.20 - Alcohol dependence, uncomplicated Category: Medical Plan: * continue medications (naltrexone and sertraline) * relapse prevention discussion * follow up 2 weeks Medications: Changed From sertraline 50 mg PO DAILY 30 tabs 3RF To sertraline 75 mg (1.5 x 50 mg) PO DAILY 45 tabs 3RF Coding Level of Care Code Est Pt Level 3 (20087) Diagnoses Alcohol use disorder, severe, dependence F10.20
[2023-11-02 14:02] VITALS: BP 138/72; PULSE 84; O2SAT 98
== END 2023-11-02 14:35 | disposition home or self-care (01) ==
PROVIDERS: PCP Nurse Practitioner Family; Visit Provider Nurse Practitioner Psychiatric/Mental Health
DX: F10.20 Alcohol dependence, uncomplicated (principal)
CPT/HCPCS: 99213

== ENCOUNTER → 2023-11-02 13:59 | Outpatient (BNVA) | payer OTHER, SELFPAY | PROVIDERS: PCP Nurse Practitioner Family; Visit Provider Nurse Practitioner Psychiatric/Mental Health | DX: F10.20 Alcohol dependence, uncomplicated (principal) | CPT/HCPCS: 99212 ==

== ENCOUNTER 2023-12-06 13:51 | Outpatient (AMB) | payer OTHER, SELFPAY ==
--- NOTE | 2023-12-06 13:54 | A.OFFVIS_ITS ---
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 Patient reports locking and catching for about 9 months that has been getting worse. States her MF is starti ng to have similar symptoms. Denies injury, numbness or tingling. No previous tx. Allergies amoxicillin [Augmentin] Allergy (Unknown, Verified 12/06/23 13:58) hives ciprofloxacin [From CIPRO] Allergy (Unknown, Verified 12/06/23 13:58) HIVES clavulanic acid [Augmentin] Allergy (Unknown, Verified 12/06/23 13:58) hives trazodone Allergy (Unknown, Verified 12/06/23 13:58) unknown Medication List - Last Reconciled 12/06/23 by Sheila Álvarez PA-C albuterol sulfate 90 mcg/actuation (Ventolin HFA) 2 puffs inhalation Q6H PRN albuterol sulfate 90 mcg/actuation 2 puffs inhalation Q6H PRN cholecalciferol (vitamin D3) 50 mcg PO DAILY clonazepam 0.5 mg PO BID PRN 20 days fluticasone propion-salmeterol 250-50 mcg/dose 1 inh inhalation BID meclizine 25 mg PO DAILY PRN naltrexone 50 mg PO DAILY omeprazole 40 mg PO DAILY 90 days ondansetron HCl 4 mg PO Q8H PRN 20 days quetiapine 25 mg PO BEDTIME rosuvastatin 5 mg PO DAILY sertraline 75 mg (1.5 x 50 mg) PO DAILY HPI HPI [employer]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 She states she has worsening pain, locking and catching in her ring finger. She denies any numbness or tingling. She denies any injury and has not had any treatment in the past. 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 [facility] Medical History (Updated 12/06/23 @ 14:58 by Sheila Álvarez PA-C) Fractured nose ETOH abuse Alcohol abuse Anxiety and depression Aftercare following left shoulder joint replacement surgery Surgical History (Updated 12/06/23 @ 13:57 by RAJIV Lara) History of shoulder surgery Family History Father Bladder cancer Lung cancer Eye cancer Mother HTN (hypertension) Sister No problems noted. Son No problems noted. Daughter No problems noted. Maternal Grandmother HTN (hypertension) Paternal Grandfather No problems noted. Maternal Grandfather No problems noted. Paternal Grandmother No problems noted. 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 Current occupational exposures/hazards: No Cognitive needs: No Hearing needs: No Vision needs: Yes Review of Systems Const All systems reviewed & are unremarkable except as noted in HPI and below Physical Exam Vital Signs: BMI result Body Mass Index 22.3 Const General: cooperative, healthy appearing, comfortable, no acute distress, well developed and alert Orientation/consciousness: patient oriented x3 HEENT Head: Yes normal to inspection, Yes normocephalic and Yes atraumatic Eyes General: appearance normal, both eyes and all related structures Resp Effort & Inspection: normal respiratory effort and able to speak in complete sentences Cardio Rate: regular rate Peripheral pulses: Peripheral pulses 2+ throughout GI Palpation (GI): Soft to palpation Skin Lesions: no lesions Rashes: no rashes Neuro General: patient oriented x3 Extrem Other: Right ring finger: Tender nodule along the A1 korin with active catching and locking. NVI. Left wrist: Without deformity. No swelling. Mild tenderness over the radial s tyloid. Positive Noris?s. No pain with CMC grind.? is able to make a full fist and fully extend all digits. NVI. Assessment & Plan Assessment & Plan (1) Trigger finger, right ring finger: Code(s): M65.341 - Trigger finger, right ring finger Category: Medical (2) De Quervain's tenosynovitis, left: Code(s): M65.4 - Radial styloid tenosynovitis [de Quervain] Category: Medical Plan We discussed options which include conservative vs operative treatment. Since the patient has been symptomatic for several months and it is impacting their daily life, the decision was made to undergo Trigger release. We discussed risk, benefits and alternatives. Risk including but not limited to infection, stiffness, ongoing trigger or catching. She does understand all this and would like to proceed with right ring finger trigger release with Dr. Carter. She will be booked accordingly. For her left hand, I gave her an immobilizing brace for her left thumb as I feel she is developing some early tendinitis. If symptoms persist or worsen, patient will contact the office for an injection, otherwise follow-up as needed. Patient Instructions: Scribed for Sheila Álvarez PA-C, by Titsu Marti medical biller, on 12/06/2023 at 2:00 PM EST.? I, Sheila Álvarez PA-C, have personally reviewed and agree with the information entered by the scribe. Coding Level of Care Code New Pt Level 4 (78637) Diagnoses Trigger finger, right ring finger M65.341 De Quervain's tenosynovitis, left M65.4
[2023-12-06 14:07] VITALS: BMI 22.3
== END 2023-12-06 14:18 | disposition home or self-care (01) ==
PROVIDERS: PCP Nurse Practitioner Family; Visit Provider Physician Assistant
DX: M65.341 Trigger finger, right ring finger (principal); M65.4 Radial styloid tenosynovitis [de Quervain]
CPT/HCPCS: 99204

== ENCOUNTER → 2023-12-06 13:51 | Outpatient (BNVA) | payer OTHER, SELFPAY | PROVIDERS: PCP Nurse Practitioner Family; Visit Provider Physician Assistant | DX: M65.341 Trigger finger, right ring finger (principal); M65.4 Radial styloid tenosynovitis [de Quervain] | CPT/HCPCS: 99202 ==

== ENCOUNTER 2023-12-20 09:16 | Outpatient (AMB) | payer OTHER, SELFPAY ==
--- NOTE | 2023-12-20 09:27 | MHC.AM.SUB ---
Vital Signs 12/20/23 09:33 BP 120/70 Blood Pressure Location Lt brachial Position Sitting Pulse 68 Pulse Source Pulse Oximeter Pulse Oximetry (%) 97 Oxygen Delivery Method Room Air Intake Visit Reasons: MAT Visit Allergies amoxicillin [Augmentin] Allergy (Unknown, Verified 12/06/23 13:58) hives ciprofloxacin [From CIPRO] Allergy (Unknown, Verified 12/06/23 13:58) HIVES clavulanic acid [Augmentin] Allergy (Unknown, Verified 12/06/23 13:58) hives trazodone Allergy (Unknown, Verified 12/06/23 13:58) unknown HPI HPI MAT Visit: Details: Patient presents for follow up 12/24 will be three months since her last drink Has been keeping very busy with her grandsons this summer Will be having trigger finger surgery in January [facility] Medical History (Updated 12/06/23 @ 14:58 by Sheila Álvarez PA-C) Fractured nose ETOH abuse Alcohol abuse Anxiety and depression Aftercare following left shoulder joint replacement surgery Surgical History (Updated 12/06/23 @ 13:57 by RAJIV Lara) History of shoulder surgery Family History Father Bladder cancer Lung cancer Eye cancer Mother HTN (hypertension) Sister No problems noted. Son No problems noted. Daughter No problems noted. Maternal Grandmother HTN (hypertension) Paternal Grandfather No problems noted. Maternal Grandfather No problems noted. Paternal Grandmother No problems noted. 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 Current occupational exposures/hazards: No Cognitive needs: No Hearing needs: No Vision needs: Yes Review of Systems Const Reports as per HPI and Reports no additional complaints Physical Exam Vital Signs: Last Vital Signs Pulse 68 12/20/23 09:33 BP 120/70 12/20/23 09:33 Pulse Ox 97 12/20/23 09:33 Oxygen Delivery Method Room Air 12/20/23 09:33 Const General: cooperative, healthy appearing and well groomed Nutritional Appearance: average body habitus Orientation/consciousness: patient oriented x3 Limitations: no limitations Neuro General: patient oriented x3 Assessment & Plan Assessment & Plan (1) Alcohol use disorder, severe, dependence: Code(s): F10.20 - Alcohol dependence, uncomplicated Category: Medical Plan: continue naltrexone no change to sertaline dose follow up one month
[2023-12-20 09:33] VITALS: BP 120/70; PULSE 68; O2SAT 97
== END 2023-12-20 09:55 | disposition home or self-care (01) ==
PROVIDERS: PCP Nurse Practitioner Family; Visit Provider Nurse Practitioner Psychiatric/Mental Health
DX: F10.20 Alcohol dependence, uncomplicated (principal)
CPT/HCPCS: 99214

== ENCOUNTER → 2023-12-20 09:16 | Outpatient (BNVA) | payer OTHER, SELFPAY | PROVIDERS: PCP Nurse Practitioner Family; Visit Provider Nurse Practitioner Psychiatric/Mental Health | DX: F10.20 Alcohol dependence, uncomplicated (principal); Z79.899 Other long term (current) drug therapy | CPT/HCPCS: 99212 ==

== ENCOUNTER 2024-01-30 09:50 | Day surgery (SDC) | payer OTHER, SELFPAY ==
[2024-01-30 11:23] VITALS: BMI 23.2
--- NOTE | 2024-01-30 11:35 | P.OP_ITS ---
Operative Note Operative Note Date of Service: 01/30/24 Narrative: Operative Note Preop diagnosis: 1. Right ring finger Trigger finger Postop diagnosis: 1. Right ring finger Trigger finger Procedure: 1. Right ring finger A1 korin release Surgeon: Eri Carter MD Circus Laborer: None Anesthesia: local block using 1% lidocaine with epinephrine Findings: No locking or catching of the right ring finger after A1 korin release. She did however have some catching of the middle finger, which she says is only minimally symptomatic. EBL: Less than 5 mL Tourniquet time: None Specimens: None Complications: None Disposition: Brought to recovery room in stable condition Plan: Follow-up for 10-14 days for wound check and suture removal Indications: The patient is 58 years old, with a right ring finger trigger finger that has been unresponsive to nonoperative management. The risks and benefits of operative treatment including but not limited to risk of damage to blood vessels, nerves, tendons, infection, persistent pain, persistent symptoms, recurrence or possible need for additional surgery were discussed with the patient and the patient wishes to proceed with surgery. Procedure: Once consent was obtained a local block was performed in the preop area using a combination of 1% lidocaine with epinephrine. The patient was then brought back to the operating suite and placed on the operative table in supine position. The right upper extremity was prepped and draped in a standard surgical fashion. Once assured that we had a good block, a 1.5 cm oblique incision was made centered over the A1 korin of the right ring finger . The incision was made through the skin to the subcutaneous tissues using a #15 blade. Careful dissection was made down to the level of the A1 korin using tenotomy scissors, with care being taken to protect the nearby neurovascular structures. A longitudinal incision was made in the A1 korin 1st using a #15 blade, then using tenotomy scissors under direct visualization. The A1 korin was noted to be thickened. Following our A1 korin release, we no longer saw any locking or catching of the digit with flexion and extension. Once satisfied with our A1 korin release the wound was copiously irrigated with normal saline and hemostasis was obtained with a brief period of local pressure. The skin edges were reapproximated with some 5.0 nylon suture material and a sterile dressing was applied. The patient appears to have tolerated the procedure well and with no complications. All digits were well vascularized at the conclusion of the case.
--- NOTE | 2024-01-30 11:35 | MHC.SHP ---
Pre-Procedural Eval Section A - 24 Hr Update-Section A only Date of Service: 01/30/24 The patient is an INPATIENT: No Changes since office visit: No Cold of Flu in the past 2 weeks, No New Medical Problems, No Changes in Medication and No Patient answered all questions The patient has been examined within 24 hours of the surgical procedure. The History & Physical has been completed within 30 days and I have reviewed it.: Yes Section B - Complete if H&P > 30 days Chief Complaint: Trigger finger, right ring finger Allergies: Allergies Allergy/AdvReac Type Severity Reaction Status Date / Time amoxicillin [Augmentin] Allergy Unknown hives Verified 12/06/23 13:58 ciprofloxacin [From CIPRO] Allergy Unknown HIVES Verified 12/06/23 13:58 clavulanic acid [Augmentin] Allergy Unknown hives Verified 12/06/23 13:58 trazodone Allergy Unknown unknown Verified 12/06/23 13:58 Plan Diagnosis/Plan: Unchanged I have reviewed the history and physical and performed a pertinent physical examination on my patient. No changes have occurred unless specified. Time Spent With Patient Time: Total time managing care of this patient today ____ minutes.
[2024-01-30 14:02] VITALS: BP 143/71; PULSE 62
== END 2024-01-30 14:01 | disposition home or self-care (01) ==
PROVIDERS: PCP Nurse Practitioner Family; Visit Provider Orthopaedic Surgery
PROC: (CPT 26055; principal; 2024-01-30 12:00)
DX: M65.341 Trigger finger, right ring finger (principal); M65.4 Radial styloid tenosynovitis [de Quervain]; F10.10 Alcohol abuse, uncomplicated; F41.8 Other specified anxiety disorders; Z96.612 Presence of left artificial shoulder joint; Z79.51 Long term (current) use of inhaled steroids; Z79.899 Other long term (current) drug therapy; Z88.1 Allergy status to other antibiotic agents; Z88.8 Allergy status to other drugs, medicaments and biological substances; Z87.891 Personal history of nicotine dependence
CPT/HCPCS: 26055; J0171

== ENCOUNTER → 2024-01-30 09:50 | Outpatient (BNV) | payer OTHER, SELFPAY | PROVIDERS: PCP Nurse Practitioner Family; Visit Provider Orthopaedic Surgery | DX: M65.341 Trigger finger, right ring finger (principal) | CPT/HCPCS: 26055 ==

== ENCOUNTER 2024-02-01 11:53 | Outpatient (AMB) | payer OTHER, SELFPAY ==
--- NOTE | 2024-02-01 08:55 | A.OFFVISCC_ITS ---
Intake Visit Reasons: tele Allergies amoxicillin [Augmentin] Allergy (Unknown, Verified 12/06/23 13:58) hives ciprofloxacin [From CIPRO] Allergy (Unknown, Verified 12/06/23 13:58) HIVES clavulanic acid [Augmentin] Allergy (Unknown, Verified 12/06/23 13:58) hives trazodone Allergy (Unknown, Verified 12/06/23 13:58) unknown HPI HPI tele: Details: Patient presents for follow up via telehealth Surgery on Tuesday --managing pain well at home Will be out of work for about 3 weeks Mother and daughter have been very involved and supportive Has not been taking naltrexone--denies cravings feels very supported in her recovery still happt at her job [employer] [facility] Medical History (Updated 12/06/23 @ 14:58 by Sheila Álvarez PA-C) Fractured nose ETOH abuse Alcohol abuse Anxiety and depression Aftercare following left shoulder joint replacement surgery Surgical History (Updated 12/06/23 @ 13:57 by RAJIV aLra) History of shoulder surgery Family History Father Bladder cancer Lung cancer Eye cancer Mother HTN (hypertension) Sister No problems noted. Son No problems noted. Daughter No problems noted. Maternal Grandmother HTN (hypertension) Paternal Grandfather No problems noted. Maternal Grandfather No problems noted. Paternal Grandmother No problems noted. 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 Current occupational exposures/hazards: No Cognitive needs: No Hearing needs: No Vision needs: Yes Review of Systems Const Reports as per HPI Telehealth Telehealth Telehealth Platform: Telephone Location of provider rendering services: practice address Location of patient: address on file Patient Identification confirmed using: Name, : Yes Telehealth method: voice only Patient verbally consented to treatment: Yes Patient verbally consented to billing insurance company: Yes Minutes spent on Phone/Video with Pt.: 15 Assessment & Plan Assessment & Plan (1) Alcohol use disorder, severe, dependence: Code(s): F10.20 - Alcohol dependence, uncomplicated Category: Medical Plan: * relapse prevention discussion (planning for things to do during time off of work) * follow up in office 02/14 10am
== END 2024-02-01 11:55 | disposition home or self-care (01) ==
LOC: HO.HCC 11:53
PROVIDERS: PCP Nurse Practitioner Family; Visit Provider Nurse Practitioner Psychiatric/Mental Health
DX: F10.20 Alcohol dependence, uncomplicated (principal)
CPT/HCPCS: 99213

== ENCOUNTER → 2024-02-01 11:53 | Outpatient (BNVA) | payer OTHER, SELFPAY | PROVIDERS: PCP Nurse Practitioner Family; Visit Provider Nurse Practitioner Psychiatric/Mental Health | DX: F10.20 Alcohol dependence, uncomplicated (principal) ==

== ENCOUNTER 2024-02-10 10:13 | Outpatient (AMB) | payer OTHER, SELFPAY ==
[2024-02-10 10:15] VITALS: BP 114/70; PULSE 86; TEMP 36.8; O2SAT 98; BMI 24.7
--- NOTE | 2024-02-10 10:15 | MHC.OFFWIV ---
Intake Vital Signs 02/10/24 10:15 Height 5 ft 4 in Weight 144 lb BMI 24.7 BP 114/70 Blood Pressure Location Rt brachial Position Sitting Pulse 86 Pulse Source Pulse Oximeter Temp 98.2 F Temp Source Oral Pulse Oximetry (%) 98 Oxygen Delivery Method Room Air Intake Visit Reasons: LT side face swelling/pain due to fall/seen ED Intake Note: Pt is here today c/o Lt side face swelling due to a fall 02/06 went to [facility] Patient Tobacco Use Status: Former Tobacco user Allergies amoxicillin [Augmentin] Allergy (Unknown, Verified 02/10/24 10:17) hives ciprofloxacin [From CIPRO] Allergy (Unknown, Verified 02/10/24 10:17) HIVES clavulanic acid [Augmentin] Allergy (Unknown, Verified 02/10/24 10:17) hives trazodone Allergy (Unknown, Verified 02/10/24 10:17) unknown HPI HPI Comments History of Present Illness Details Patient is a 58-year-old female complaining of left-sided facial pain and swelling since she fell on the left side of her face on February 06 when she was leaving the [place]. she was originally seen at [facility] where she declined CT scan of her head and face. While in the emergency department, she was evaluated in ended up with 2 sutures and the inside of her lower lip and she was sent home. She states she has been taking Motrin and using ice but she feels like the pain and swelling are getting worse on the left side of her face. She denies any changes in her vision or hearing. She offers no other complaints. [facility] Medical History (Updated 02/10/24 @ 10:53 by Pooja Dawn PA-C) Fractured nose ETOH abuse Alcohol abuse Anxiety and depression Aftercare following left shoulder joint replacement surgery Surgical History (Updated 12/06/23 @ 13:57 by Mary Paiz Ashlie) History of shoulder surgery Family History Father Bladder cancer Lung cancer Eye cancer Mother HTN (hypertension) Sister No problems noted. Son No problems noted. Daughter No problems noted. Maternal Grandmother HTN (hypertension) Paternal Grandfather No problems noted. Maternal Grandfather No problems noted. Paternal Grandmother No problems noted. 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 Current occupational exposures/hazards: No Cognitive needs: No Hearing needs: No Vision needs: Yes Review of Systems Const All systems reviewed & are unremarkable except as noted in HPI and below Physical Exam Vital Signs: Last Vital Signs Temp 98.2 F 02/10/24 10:15 Pulse 86 02/10/24 10:15 BP 114/70 02/10/24 10:15 Pulse Ox 98 02/10/24 10:15 Oxygen Delivery Method Room Air 02/10/24 10:15 BMI result Body Mass Index 24.7 Const General: cooperative, healthy appearing, comfortable, no acute distress and well developed Orientation/consciousness: patient oriented x3 Limitations: no limitations HEENT Other: Slight tenderness to palpation of the maxilla bone to the left of the nose Head: Yes normocephalic and Yes atraumatic Head images: 1. Ecchymosis 2. Swelling with ecchymosis near the chin. Some slight tenderness to palpation 3. Small scrape, on the inside of the lower lip there are 2 sutures applied, no signs of infection noted Ears: hearing grossly normal bilaterally General nose exam: Normal external nose present Face and sinus: Yes abrasion (inferior to lower lip, see above), Yes ecchymosis (see above) and Yes edema (left sided, see above) Eyes General: appearance normal, both eyes and all related structures Neck Neck: Yes normal visual inspection and Yes full ROM Resp Effort & Inspection: normal respiratory effort and able to speak in complete sentences Skin General skin exam: no rashes or lesions noted Neuro General: patient oriented x3 Extrem General: Yes normal to inspection Assessment & Plan Assessment & Plan (1) Left facial swelling: Code(s): R22.0 - Localized swelling, mass and lump, head Plan: Recommended she continue to use Motrin 600 mg every 6 hours, she can add Tylenol but not to exceed 3 g per day as long as she has no issues with her liver. Also recommended using ice as much as possible. Likely just superficial bruising and associated swelling that will take time to heal. However if she feels the pain is getting worse, she should return to the emergency department for the CT scan she had originally declined. (2) Traumatic ecchymosis of face: Code(s): S00.83XA - Contusion of other part of head, initial encounter Qualifiers: Encounter type: initial encounter Qualified Code(s): S00.83XA - Contusion of other part of head, initial encounter Plan: See above Plan See above Coding Level of Care Code Est Pt Level 3 (21601) Diagnoses Left facial swelling R22.0 Traumatic ecchymosis of face, initial encounter S00.83XA Encounter type: initial encounter
== END 2024-02-10 10:45 | disposition home or self-care (01) ==
PROVIDERS: PCP Nurse Practitioner Family; Visit Provider Physician Assistant
DX: R22.0 Localized swelling, mass and lump, head (principal); S00.83XA Contusion of other part of head, initial encounter

== ENCOUNTER → 2024-02-10 10:13 | Outpatient (BNVA) | payer OTHER, SELFPAY | PROVIDERS: PCP Nurse Practitioner Family | DX: R22.0 Localized swelling, mass and lump, head (principal); S00.83XA Contusion of other part of head, initial encounter; W19.XXXA Unspecified fall, initial encounter; Y93.01 Activity, walking, marching and hiking; Y92.9 Unspecified place or not applicable; Y99.9 Unspecified external cause status | CPT/HCPCS: 99212 ==

== ENCOUNTER 2024-02-14 14:08 | Outpatient (AMB) | payer OTHER, SELFPAY ==
[2024-02-14 15:07] VITALS: BMI 24.7
--- NOTE | 2024-02-14 15:07 | A.OFFVIS_ITS ---
Vital Signs 02/14/24 15:07 Height 5 ft 4 in Weight 144 lb BMI 24.7 Intake Visit Reasons: PO RT RF trigger release 01/30/24 AR Intake Note: Araceli is a 58 yo right hand dominant female who presents today post-operatively s/p right ring trigger finger release done 01/30/[address] Carter. Patient denies numbness, tingling or finger locking. Patient also reports they are no longer taking anything for pain. They confirm sensitivity at the fingertips. Stitches removed in office and steri strips applied. Patient was seen at [facility] ED on 02/07/24 due to a fall. She is currently taking antibiotics for an oral injury s/p fall 02/07/24. Allergies amoxicillin [Augmentin] Allergy (Unknown, Verified 02/14/24 15:16) hives ciprofloxacin [From CIPRO] Allergy (Unknown, Verified 02/14/24 15:16) HIVES clavulanic acid [Augmentin] Allergy (Unknown, Verified 02/14/24 15:16) hives trazodone Allergy (Unknown, Verified 02/14/24 15:16) unknown HPI HPI PO RT RF trigger release 01/30/24 AR: Details: Araceli is a 58 year old right hand dominant woman who presents S/P right ring finger trigger release, DOS: 01/30/24. She says she is doing well and denies any locking or catching. She says has some stiffness in her finger and has not been moving it as much as she should have. She reports falling and being seen in [facility] ED on 02/07/24 for facial injuries. She has a Hx of ETOH abuse. 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 [facility] Medical History (Updated 02/10/24 @ 10:53 by Pooja Dawn PA-C) Fractured nose ETOH abuse Alcohol abuse Anxiety and depression Aftercare following left shoulder joint replacement surgery Surgical History (Updated 12/06/23 @ 13:57 by Mary Paiz Ashlie) History of shoulder surgery Family History Father Bladder cancer Lung cancer Eye cancer Mother HTN (hypertension) Sister No problems noted. Son No problems noted. Daughter No problems noted. Maternal Grandmother HTN (hypertension) Paternal Grandfather No problems noted. Maternal Grandfather No problems noted. Paternal Grandmother No problems noted. 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 Sutures removed and Steri-Strips applied She can make a fist and extend all her digits No locking or catching of the ring finger. Also no locking or catching seen in the middle finger. Please note: We did see catching in the middle finger when we were testing the ring finger following the A1 korin release in the operating room. Mild stiffness in the volar aspect of the PIP joint. I showed her place her hand flat on the table and to stretch that area 20 times a day. Sensation is intact Cap refill is brisk Psych Appearance: grossly normal Affect: normal affect Attitude: cooperative Assessment & Plan Assessment & Plan (1) Trigger finger, right ring finger: Code(s): M65.341 - Trigger finger, right ring finger Category: Medical (2) Alcohol use disorder, severe, dependence: Code(s): F10.20 - Alcohol dependence, uncomplicated Category: Medical Plan Assessment & Plan: 1. Right ring finger trigger finger, S/P release DOS: 01/30/24 The patient appears to be doing well post-operatively I educated her about the post-operative course I explained the signs and symptoms of infection, if the patient develops any new or worsening erythema, drainage, pain, or warmth they should contact the clinic or attend the ED. 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 She can follow up prn 2. Right middle finger trigger finger This was identified when we were testing the right ring finger in the operating room following A1 korin release. She says it is not bothersome to her right now. We will monitor this and she will follow up prn to discuss treatment options Scribed for Eri Carter MD by Yonatan Gar, medical collections representative, on 02/14/24 at 3:30 PM, EST. Coding Level of Care Code Global (18196) Diagnoses Trigger finger, right ring finger M65.341 Alcohol use disorder, severe, dependence F10.20
== END 2024-02-14 15:40 | disposition home or self-care (01) ==
PROVIDERS: PCP Nurse Practitioner Family; Visit Provider Orthopaedic Surgery
DX: M65.341 Trigger finger, right ring finger (principal); F10.20 Alcohol dependence, uncomplicated
CPT/HCPCS: 99024

== ENCOUNTER → 2024-02-14 14:08 | Outpatient (BNVA) | payer OTHER, SELFPAY | PROVIDERS: PCP Nurse Practitioner Family; Visit Provider Orthopaedic Surgery | DX: Z47.89 Encounter for other orthopedic aftercare (principal); F10.20 Alcohol dependence, uncomplicated; Z98.890 Other specified postprocedural states | CPT/HCPCS: 99212 ==

== ENCOUNTER 2024-02-15 09:41 | Outpatient (AMB) | payer OTHER, SELFPAY ==
--- NOTE | 2024-02-15 16:52 | A.OFFVISCC_ITS ---
Intake Visit Reasons: MAT Office Allergies amoxicillin [Augmentin] Allergy (Unknown, Verified 02/14/24 15:16) hives ciprofloxacin [From CIPRO] Allergy (Unknown, Verified 02/14/24 15:16) HIVES clavulanic acid [Augmentin] Allergy (Unknown, Verified 02/14/24 15:16) hives trazodone Allergy (Unknown, Verified 02/14/24 15:16) unknown HPI HPI MAT Office: Details: Patient presents for AUD treatment follow up continues to abstain from alcohol tolerating current medication returning to work next week PFSH Medical History (Updated 02/10/24 @ 10:53 by Pooja Dawn PA-C) Fractured nose ETOH abuse Alcohol abuse Anxiety and depression Aftercare following left shoulder joint replacement surgery Surgical History (Updated 12/06/23 @ 13:57 by RAJIV Lara) History of shoulder surgery Family History Father Bladder cancer Lung cancer Eye cancer Mother HTN (hypertension) Sister No problems noted. Son No problems noted. Daughter No problems noted. Maternal Grandmother HTN (hypertension) Paternal Grandfather No problems noted. Maternal Grandfather No problems noted. Paternal Grandmother No problems noted. 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
== END 2024-02-15 10:24 | disposition home or self-care (01) ==
PROVIDERS: PCP Nurse Practitioner Family; Visit Provider Nurse Practitioner Psychiatric/Mental Health
DX: F10.20 Alcohol dependence, uncomplicated (principal)
CPT/HCPCS: 99213

== ENCOUNTER → 2024-02-15 09:41 | Outpatient (BNVA) | payer OTHER, SELFPAY | PROVIDERS: PCP Nurse Practitioner Family; Visit Provider Nurse Practitioner Psychiatric/Mental Health | DX: F10.20 Alcohol dependence, uncomplicated (principal) | CPT/HCPCS: 99212 ==

== ENCOUNTER 2024-03-07 14:05 | Outpatient (AMB) | payer OTHER, SELFPAY ==
[2024-03-07 14:09] VITALS: BP 130/70; PULSE 71; O2SAT 98; BMI 24.4
--- NOTE | 2024-03-07 14:09 | MHC.PC.OV ---
Vital Signs 03/07/24 14:09 Height 5 ft 4 in Weight 142 lb BMI 24.4 BP 130/70 Blood Pressure Location Rt brachial Position Sitting Pulse 71 Pulse Source Pulse Oximeter Pulse Oximetry (%) 98 Oxygen Delivery Method Room Air Intake Visit Reasons: 6 Month F/U Intake Note: pt is here for 6 month follow up Manager Green Required: No Accompanied by: Self / Same As Patient Allergies amoxicillin [Augmentin] Allergy (Unknown, Verified 03/07/24 14:10) hives ciprofloxacin [From CIPRO] Allergy (Unknown, Verified 03/07/24 14:10) HIVES clavulanic acid [Augmentin] Allergy (Unknown, Verified 03/07/24 14:10) hives trazodone Allergy (Unknown, Verified 03/07/24 14:10) unknown Tobacco use date assessed: 09/07/23 Dental Screening Dental Screen Date: 09/07/23 HPI 6 Month F/U HPI Details Pt was seen in the ER on 02/28 c/o tremors and N/V. Pt was started on benzodiazepines for CIWA protocol. She was given an antiemetic, vitamins, and fluids. EKG showed sinus tachycardia, normal GA, QRS, QT intervals, no ST elevations or depressions. Pt was admitted for acute renal failure and alcohol withdrawal syndrome. Pt reports that she has not been drinking alcohol. Will order repeat labs. Pt was also previously seen in the ER after falling at the [place]. She refused imaging at the time. Pt reports doing slightly better. She does report lower inner lip tenderness, side of tongue is tender. She does appear to have a canker sore to inner lower lip. Will send magic mouthwash. Denies fever, chills, and dizziness. [facility] Medical History Fractured nose ETOH abuse Alcohol abuse Anxiety and depression Aftercare following left shoulder joint replacement surgery Surgical History History of shoulder surgery Family History Father Bladder cancer Lung cancer Eye cancer Mother HTN (hypertension) Sister No problems noted. Son No problems noted. Daughter No problems noted. Maternal Grandmother HTN (hypertension) Paternal Grandfather No problems noted. Maternal Grandfather No problems noted. Paternal Grandmother No problems noted. 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 1. Little interest or pleasure in doing things: not at all 2. Feeling down, depressed, or hopeless: several days 3. Trouble falling or staying asleep, or sleeping too much: several days 4. Feeling tired or having little energy: several days 5. Poor appetite or overeating: several days 6. Feeling bad about yourself - or that you are a failure or have let yourself or your family down: more than half the days 7. Trouble concentrating on things, such as reading the newspaper or watching television: not at all 8. Moving or speaking so slowly that other people could have noticed. Or the opposite - being so fidgety or restless that you have been moving around a lot more than usual: not at all 9. Thoughts that you would be better off or of hurting yourself in some way: not at all Total score: 6 Depression Screening Interpretation: Negative Depression Screening Done: Yes [id number] - PHQ-9 Billing: Yes Source: Developed by Drs. Usama Wheeler, Veda Coreas, Varun Ashley and colleagues, with an educational brian from [email or web address]. Thrive Questionnaire Date Thrive assessed: 03/07/24 I am a: Patient What is your living situation today?: I have a steady place to live Within the past 12 months, did the food you bought not last and you didn't have the money to get more?: I choose not to answer this question Within the past 12 months, did you worry whether your food would run out before you got money to buy more?: I choose not to answer this question Do you have trouble paying for medicines?: No Do you have trouble getting transportation to medical appointments?: No Do you have trouble paying your heating and electricity bill?: Yes Do you have trouble taking care of your child, family member or friend?: No Do you have trouble with day-to-day activities such as bathing, preparing meals, shopping, managing finances, etc.?: No Are you currently unemployed and looking for a job?: I choose not to answer this question Are you interested in more education?: No Please select the resources that you would like help with: None Currently or been in a relationship where the following occur: No concerns reported THRIVE Score: 1 AUDIT C Alcohol Use Questionnaire (AUDIT-C) 1. How often do you have a drink containing alcohol?: Never 3. How often do you have six or more drinks on one occasion?: Never Total Score: 0 Score Reviewed/Action Taken: Yes TOMAS-7 AMB Questionnaire TOMAS-7 Date TOMAS - 7 assessed: 03/07/24 Feeling nervous, anxious, or on edge: 3 = Nearly every day Not being able to stop or control worryin = More than half the days Worrying too much about different things: 2 = More than half the days Trouble relaxin = Several days Being so restless that it is hard to sit still: 0 = Not at all Becoming easily annoyed or irritable: 0 = Not at all Feeling afraid as if something awful might happen: 0 = Not at all Total TOMAS-7 score (0-4 normal; 5-9 mild; 10-14 moderate; 15-21 severe): 8 Source: Developed by Drs. Usama Wheeler, Veda Coreas, Varun Ashley and colleagues, with an educational brian from [email or web address]. TOMAS-7 Assessment Billing TOMAS-7 Assessment Tool: TOMAS-7 Assessment 03265 Review of Systems Const Reports as per HPI Physical exam (Primary Care) Vital Signs: Last Vital Signs Pulse 71 03/07/24 14:09 BP 130/70 03/07/24 14:09 Pulse Ox 98 03/07/24 14:09 Oxygen Delivery Method Room Air 03/07/24 14:09 BMI result Body Mass Index 24.4 Tobacco/Smoking Status: Tobacco use Status Tobacco use date assessed 09/07/23 03/07/24 14:10 Patient Tobacco Use Status Former Tobacco user 03/07/24 14:10 e-Cigarette/Vaping Use Never Used 03/07/24 14:10 PHQ-9: PHQ-9 Score PHQ-9: Total score 6 03/07/24 14:22 Depression Screening Interpretation: Negative Thrive Assessment: Date of Thrive Assessment Date Thrive assessed 03/07/24 03/07/24 14:10 Currently or been in a relationship where the following occur: No concerns reported Const General: cooperative Orientation/consciousness: patient oriented x3 HENMT Other: small canker sore to right lower inner lip, tenderness with touch throughout entire lower inner lip. Left inner buccal tissue with circular tissue anomaly Resp Effort & Inspection: normal respiratory effort Auscultation: clear to auscultation bilaterally Cardio Rate: regular rate Rhythm: regular rhythm Heart sounds: S1 normal heart sound present, S2 normal heart sound present and Murmur heart sound present Skin Other: fading ecchymosis to left lower tricep region Neuro General: patient oriented x3 Psych Appearance: grossly normal Mental Status: mental status grossly normal Speech and movement: Normal speech and movement present Affect: normal affect Attitude: cooperative Thought process: Normal thought process present Thought content: Normal thought content present Insight: Good insight present (Psych) Judgement: Good judgement present (Psych) Coding Level of Care Code Est Pt Level 3 (55184) Diagnoses Alcohol abuse F10.10 Mouth injury S09.93XA Mouth pain K13.79 Vitamin D deficiency E55.9 Additional Codes TOMAS-7 Assessment Billing - TOMAS-7 Assessment Tool: TOMAS-7 Assessment [id number] ([id number]) Assessment & Plan Assessment & Plan (1) Alcohol abuse: Code(s): F10.10 - Alcohol abuse, uncomplicated Category: Social Hx Plan: Labs ordered (2) Mouth injury: Code(s): S09.93XA - Unspecified injury of face, initial encounter Category: Medical Plan: CT of neck/posterior pharynx (3) Mouth pain: Code(s): K13.79 - Other lesions of oral mucosa Category: Medical Plan: CT ordered (4) Vitamin D deficiency: Code(s): E55.9 - Vitamin D deficiency, unspecified Category: Medical Plan: lab Plan The patient agreed to the use of a dental assistant medical assistant for this encounter. Scribed for JEROME Avalos by Nimo Niall, dental assistant medical assistant, on 03/07/2024 at 14:35 EST. Orders: Orders Complete Blood Count Auto Diff Today F10.10 - Alcohol abuse, uncomplicated CT soft tissue neck wo/w IVcon Today K13.79 - Other lesions of oral mucosa, S09.93XA - Unspecified injury of face, initial encounter Vitamin D 25-OH Total Today E55.9 - Vitamin D deficiency, unspecified, F10.10 - Alcohol abuse, uncomplicated Vitamin B12 and Folate Today E55.9 - Vitamin D deficiency, unspecified, F10.10 - Alcohol abuse, uncomplicated Comprehensive Met. Panel Today F10.10 - Alcohol abuse, uncomplicated Magnesium Today F10.10 - Alcohol abuse, uncomplicated Medications: New Magic Mouthwash Diphen/Lido/Antacid 1:1:1 Lidocaine Viscous 2 % 80mL; diphenhydramine 12.5 mg/5 mL 80mL; aluminum-mag hydrox-simeth [id number]/5mL 80mL 10 mL PO BID 240 mL 0RF Refilled clonazepam 0.5 mg PO BID 30 days PRN 60 tabs 0RF anxiety
== END 2024-03-07 16:11 | disposition home or self-care (01) ==
PROVIDERS: PCP Nurse Practitioner Family; Visit Provider Nurse Practitioner Family
DX: F10.10 Alcohol abuse, uncomplicated (principal); S09.93XA Unspecified injury of face, initial encounter; K13.79 Other lesions of oral mucosa; E55.9 Vitamin D deficiency, unspecified

== ENCOUNTER → 2024-03-07 14:05 | Outpatient (BNVA) | payer OTHER, SELFPAY | PROVIDERS: PCP Nurse Practitioner Family; Visit Provider Nurse Practitioner Family ==

== ENCOUNTER 2024-03-07 14:54 | Outpatient (REF) | payer OTHER, SELFPAY ==
[2024-03-07 16:20] LABS: MANUAL DIFF FLAG NO
[2024-03-07 16:28] LABS: Basophils Percent Auto 0.6 % (0-2); Eosinophils Absolute Auto 0.1 X10*3/uL (0.0-0.4); Eosinophils Percent Auto 1.4 % (0-4); Hematocrit 34.1 % (37.0-47.0); Hemoglobin 10.9 g/dl (12.0-16.0); Imm Gran Abs Auto 0.05 X10*3/uL (0.00-0.03); Lymphocytes Absolute Auto 1.7 X10*3/uL (1.2-4.9); Mean Corpuscular Hemoglobin 31.1 pg (27.0-33.0); Mean Corpuscular Volume 97.2 fL (80.0-98.0); Mean Platelet Volume 10.3 fL (9.4-12.3); Monocytes Absolute Auto 0.6 X10*3/uL (0.1-1.2); Monocytes Percent Auto 12.2 % (2-11); Neutrophils Absolute Auto 2.5 x10*3/uL (2.0-8.3); Neutrophils Percent Auto 50.8 % (45-73); Platelet Count 175 X10*3/uL (160-400); Red Blood Count 3.51 X10*6/uL (4.20-5.50); Red Cell Distribution Width 16.1 % (11.0-16.0); White Blood Count 4.9 X10*3/uL (4.8-10.8)
[2024-03-07 16:57] LABS: Alanine Aminotransferase 73 U/L (0-31); Albumin Level 4.3 g/dL (3.5-5.0); Alkaline Phosphatase 150 U/L (39-117); Anion Gap 14 (12-20); Aspartate Amino Transferase 50 U/L (5-31); Bilirubin Total 0.7 mg/dL (0.0-1.0); Blood Urea Nitrogen 5 mg/dL (9-16); Calcium 9.8 mg/dL (8.4-10.2); Carbon Dioxide 25 mmol/L (22-29); Chloride 105 mmol/L (96-108); Estimated Glomerular Filt Rate > 60; Glucose Random 104 mg/dL (60-115); Magnesium 1.7 mg/dL (1.6-2.6); Potassium 4.1 mmol/L (3.3-5.1); Sodium 140 mmol/L (135-145); Total Protein 7.2 g/dL (6.5-8.0)
[2024-03-07 17:07] LABS: Vitamin D 25-OH Total 45.5 ng/mL (>30)
[2024-03-07 17:19] LABS: Vitamin B12 592 pg/mL (200-900)
== END 2024-03-07 14:55 | disposition home or self-care (01) ==
LOC: HO.HMGCLDS 14:54
PROVIDERS: PCP Nurse Practitioner Family; Visit Provider Nurse Practitioner Family
DX: F10.10 Alcohol abuse, uncomplicated (principal); S09.93XA Unspecified injury of face, initial encounter; K13.79 Other lesions of oral mucosa; E55.9 Vitamin D deficiency, unspecified
CPT/HCPCS: 36415; 80053; 82306; 82607; 82746; 83735; 85025; 96127; 99212

== ENCOUNTER 2024-03-28 13:54 | Outpatient (AMB) | payer OTHER, SELFPAY ==
--- NOTE | 2024-03-28 14:12 | A.OFFVISCC_ITS ---
Intake Visit Reasons: MAT Office Allergies amoxicillin [Augmentin] Allergy (Unknown, Verified 03/07/24 14:10) hives ciprofloxacin [From CIPRO] Allergy (Unknown, Verified 03/07/24 14:10) HIVES clavulanic acid [Augmentin] Allergy (Unknown, Verified 03/07/24 14:10) hives trazodone Allergy (Unknown, Verified 03/07/24 14:10) unknown HPI HPI MAT Office: Details: Patient presents for AUD treatment follow up Reports recurrence of alcohol use beginning of February Few days of drinking then went to ED and admitted for 2 days for alcohol withdrawal No change to medications Back to work --finds it helpful some self deprecating statements during visit Review of Systems Const Reports as per HPI and Reports no additional complaints Physical Exam Const General: cooperative, healthy appearing and well groomed Assessment & Plan Assessment & Plan (1) Alcohol use disorder, severe, dependence: Code(s): F10.20 - Alcohol dependence, uncomplicated Category: Medical Plan: * relapse prevention discussion * refilled sertraline * follow up 4 weeks Medications: Refilled sertraline 75 mg (1.5 x 50 mg) PO DAILY 45 tabs 3RF PFSH Medical History Fractured nose ETOH abuse Alcohol abuse Anxiety and depression Aftercare following left shoulder joint replacement surgery Surgical History History of shoulder surgery Family History Father Bladder cancer Lung cancer Eye cancer Mother HTN (hypertension) Sister No problems noted. Son No problems noted. Daughter No problems noted. Maternal Grandmother HTN (hypertension) Paternal Grandfather No problems noted. Maternal Grandfather No problems noted. Paternal Grandmother No problems noted. 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
== END 2024-03-28 14:35 | disposition home or self-care (01) ==
LOC: HO.HCC 13:55
PROVIDERS: PCP Nurse Practitioner Family; Visit Provider Nurse Practitioner Psychiatric/Mental Health
DX: F10.20 Alcohol dependence, uncomplicated (principal)
CPT/HCPCS: 99214

== ENCOUNTER → 2024-03-28 13:54 | Outpatient (BNVA) | payer OTHER, SELFPAY | PROVIDERS: PCP Nurse Practitioner Family; Visit Provider Nurse Practitioner Psychiatric/Mental Health | DX: F10.20 Alcohol dependence, uncomplicated (principal) | CPT/HCPCS: 99212 ==

== ENCOUNTER 2024-04-20 09:11 | Outpatient (REF) | payer OTHER, SELFPAY ==
[2024-04-20 10:56] LABS: MANUAL DIFF FLAG NO
[2024-04-20 10:59] LABS: Basophils Percent Auto 0.7 % (0-2); Eosinophils Absolute Auto 0.2 X10*3/uL (0.0-0.4); Eosinophils Percent Auto 3.9 % (0-4); Hematocrit 36.8 % (37.0-47.0); Hemoglobin 12.2 g/dl (12.0-16.0); Lymphocytes Absolute Auto 1.8 X10*3/uL (1.2-4.9); Lymphocytes Percent Auto 43.2 % (20-40); Mean Corpuscular HGB Conc 33.2 g/dl (31.0-35.0); Mean Corpuscular Hemoglobin 29.5 pg (27.0-33.0); Mean Corpuscular Volume 89.1 fL (80.0-98.0); Mean Platelet Volume 10.4 fL (9.4-12.3); Monocytes Absolute Auto 0.3 X10*3/uL (0.1-1.2); Monocytes Percent Auto 8.2 % (2-11); Neutrophils Absolute Auto 1.8 x10*3/uL (2.0-8.3); Platelet Count 197 X10*3/uL (160-400); Red Blood Count 4.13 X10*6/uL (4.20-5.50); Red Cell Distribution Width 13.2 % (11.0-16.0); White Blood Count 4.1 X10*3/uL (4.8-10.8)
[2024-04-20 11:17] LABS: Alanine Aminotransferase 18 U/L (0-31); Albumin Level 4.3 g/dL (3.5-5.0); Alkaline Phosphatase 127 U/L (39-117); Anion Gap 11 (12-20); Aspartate Amino Transferase 24 U/L (5-31); Bilirubin Total 0.4 mg/dL (0.0-1.0); Blood Urea Nitrogen 17 mg/dL (9-16); Calcium 9.6 mg/dL (8.4-10.2); Carbon Dioxide 27 mmol/L (22-29); Chloride 105 mmol/L (96-108); Estimated Glomerular Filt Rate > 60; Glucose Random 89 mg/dL (60-115); Potassium 4.4 mmol/L (3.3-5.1); Sodium 139 mmol/L (135-145); Total Protein 7.1 g/dL (6.5-8.0)
[2024-04-20 11:38] LABS: Vitamin D 25-OH Total 38.3 ng/mL (>30)
== END 2024-04-20 09:12 | disposition home or self-care (01) ==
LOC: HO.HMGCLDS 09:11
PROVIDERS: PCP Nurse Practitioner Family; Visit Provider Nurse Practitioner Family
DX: F10.10 Alcohol abuse, uncomplicated (principal); E55.9 Vitamin D deficiency, unspecified; Z78.0 Asymptomatic menopausal state
CPT/HCPCS: 36415; 80053; 82306; 85025

== ENCOUNTER 2024-05-14 07:40 | Outpatient (REF) | payer OTHER, SELFPAY ==
[2024-05-14] MEDS: iohexoL 350 MG/ML 100 ML INFUS..BTL 60 ML IV (08:57)
== END 2024-05-14 07:41 | disposition home or self-care (01) ==
LOC: HO.CT 07:40
PROVIDERS: PCP Nurse Practitioner Family; Visit Provider Nurse Practitioner Family
DX: S09.93XA Unspecified injury of face, initial encounter (principal); K13.79 Other lesions of oral mucosa
CPT/HCPCS: 70491; Q9967

== ENCOUNTER → 2024-05-14 07:41 | Outpatient (BNV) | payer OTHER, SELFPAY | PROVIDERS: PCP Nurse Practitioner Family; Visit Provider Radiology Diagnostic Radiology | DX: K13.79 Other lesions of oral mucosa (principal); S09.93XA Unspecified injury of face, initial encounter | CPT/HCPCS: 70491 ==

== ENCOUNTER 2024-05-18 09:42 | Outpatient (AMB) | payer OTHER, SELFPAY ==
--- NOTE | 2024-05-18 09:53 | A.OFFVISCC_ITS ---
Intake Visit Reasons: MAT Office Allergies amoxicillin [Augmentin] Allergy (Unknown, Verified 03/07/24 14:10) hives ciprofloxacin [From CIPRO] Allergy (Unknown, Verified 03/07/24 14:10) HIVES clavulanic acid [Augmentin] Allergy (Unknown, Verified 03/07/24 14:10) hives trazodone Allergy (Unknown, Verified 03/07/24 14:10) unknown Medication List - Last Reconciled 05/18/24 by Florecita Bowen CNP albuterol sulfate 90 mcg/actuation (Ventolin HFA) 2 puffs inhalation Q6H PRN albuterol sulfate 90 mcg/actuation 2 puffs inhalation Q6H PRN cholecalciferol (vitamin D3) 50 mcg PO DAILY clonazepam 0.5 mg PO BID PRN 30 days fluticasone propion-salmeterol 250-50 mcg/dose 1 inh inhalation BID Magic Mouthwash Diphen/Lido/Antacid 1:1:1 10 mL PO BID omeprazole 40 mg PO DAILY 90 days rosuvastatin 5 mg PO DAILY sertraline 75 mg (1.5 x 50 mg) PO DAILY HPI HPI MAT Office: Details: Patient presents for AUD treatment follow up Continues to abstain from alcohol Still working FT, no changes to medications Spending time with family Appreciating down time Review of Systems Const Reports as per HPI and Reports no additional complaints Physical Exam Const General: cooperative, healthy appearing and well groomed Nutritional Appearance: average body habitus Limitations: no limitations Psych Appearance: well kempt Speech and movement: Normal speech and movement present Affect: normal affect Attitude: cooperative Thought process: Normal thought process present Thought content: Normal thought content present Insight: Good insight present (Psych) Judgement: Good judgement present (Psych) Assessment & Plan Assessment & Plan (1) Alcohol use disorder, severe, dependence: Code(s): F10.20 - Alcohol dependence, uncomplicated Category: Medical Plan: * relapse prevention discussion * follow up one month [facility] Medical History Fractured nose ETOH abuse Alcohol abuse Anxiety and depression Aftercare following left shoulder joint replacement surgery Surgical History History of shoulder surgery Family History Father Bladder cancer Lung cancer Eye cancer Mother HTN (hypertension) Sister No problems noted. Son No problems noted. Daughter No problems noted. Maternal Grandmother HTN (hypertension) Paternal Grandfather No problems noted. Maternal Grandfather No problems noted. Paternal Grandmother No problems noted. 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
== END 2024-05-18 11:02 | disposition home or self-care (01) ==
PROVIDERS: PCP Nurse Practitioner Family; Visit Provider Nurse Practitioner Psychiatric/Mental Health
DX: F10.20 Alcohol dependence, uncomplicated (principal)
CPT/HCPCS: 99213

== ENCOUNTER → 2024-05-18 09:42 | Outpatient (BNVA) | payer OTHER, SELFPAY | PROVIDERS: PCP Nurse Practitioner Family; Visit Provider Nurse Practitioner Psychiatric/Mental Health | DX: F10.20 Alcohol dependence, uncomplicated (principal); Z51.81 Encounter for therapeutic drug level monitoring; Z79.899 Other long term (current) drug therapy | CPT/HCPCS: 99212 ==

== ENCOUNTER 2024-06-11 08:37 | Outpatient (AMB) | payer OTHER, SELFPAY ==
--- NOTE | 2024-06-11 08:42 | AM.OFFWIN_ITS ---
Intake Vital Signs 06/11/24 08:43 Height 5 ft 4 in Weight 145 lb BMI 24.9 BP 134/76 Blood Pressure Location Lt brachial Position Sitting Pulse 90 Pulse Source Pulse Oximeter Pulse Oximetry (%) 98 Oxygen Delivery Method Room Air Intake Visit Reasons: EP ?Toe infection/swelling RT ~ LT toe injury Intake Note: Pt is here today for a walk in visit. Pt c/o R toe pain and swelling in her R ankle. Patient Tobacco Use Status: Former Tobacco user Allergies amoxicillin [Augmentin] Allergy (Unknown, Verified 06/11/24 08:47) hives ciprofloxacin [From CIPRO] Allergy (Unknown, Verified 06/11/24 08:47) HIVES clavulanic acid [Augmentin] Allergy (Unknown, Verified 06/11/24 08:47) hives trazodone Allergy (Unknown, Verified 06/11/24 08:47) unknown HPI HPI Comments History of Present Illness Details History of Present Illness - The patient is a 59-year-old female pr esenting with foot swelling and toenail issues. - Long-standing onychomycosis, with rece nt exacerbation marked by left great toenail detachment after trauma. - Right great toenail loosening occurred without trauma, accompanied by redness and swelling over the past four days. - Currently taking amoxicillin for an un related tooth infection. - Persistent foot pain exacerbated by pr olonged standing. - Mild peripheral edema noted, atypical for the patient, with no recent dietary changes to account for it. - Historical alcohol use discourages the use of oral antifungal due to previous elevated liver enzymes. - Prior podiatric consultation occurred approximately 10 years ago. Physical Exam General: Cooperative, healthy appearing, comfortable, no acute distress and well developed Orientation: Patient oriented x3 Limitations: No limitations Head: Normal to inspection Ears: Hearing grossly normal bilaterally Nose: Normal external nose present Face and sinus: Normal facial exam Eyes: Appearance normal, both eyes and all related structures Neck: Normal visual inspection and Yes full ROM Respiratory: Normal respiratory effort and able to speak in complete sentences. Skin: No rashes or lesions noted Neuro: Patient oriented x3 Extremities: Very mild edema noted in the bilat (R>L) foot and ankle, with mild erythema and ttp base of the right great toenail, no fluctuance. Onychomycosis of all toenails.Full ROM all toes, NVI all toes. [facility] Medical History Fractured nose ETOH abuse Alcohol abuse Anxiety and depression Aftercare following left shoulder joint replacement surgery Surgical History History of shoulder surgery Family History Father Bladder cancer Lung cancer Eye cancer Mother HTN (hypertension) Sister No problems noted. Son No problems noted. Daughter No problems noted. Maternal Grandmother HTN (hypertension) Paternal Grandfather No problems noted. Maternal Grandfather No problems noted. Paternal Grandmother No problems noted. 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 Current occupational exposures/hazards: No Cognitive needs: No Hearing needs: No Vision needs: Yes Review of Systems Const All systems reviewed & are unremarkable except as noted in HPI and below Physical Exam Vital Signs: Last Vital Signs Pulse 90 06/11/24 08:43 BP 134/76 06/11/24 08:43 Pulse Ox 98 06/11/24 08:43 Oxygen Delivery Method Room Air 06/11/24 08:43 BMI result Body Mass Index 24.9 Assessment & Plan Assessment & Plan (1) Onychomycosis: Code(s): B35.1 - Tinea unguium Plan: Plan The patient's foot symptoms are attributed to ongoing onychomycosis with potential for a mild paronychia, resulting in localized inflammation and swelling. Topical antifungal therapies will be considered to avoid hepatic complications due to her history. Compression socks are recommended for managing edema, coupled with reducing sodium intake. A referral to podiatry is recommended for specialized treatment options for the fungal infection. I have messaged her PCP. Despite her concurrent dental infection being treated with amoxicillin, which may address her very mild paronychia. Ongoing observation is necessary, with planned follow-up to ensure symptom resolution and rule out more severe underpinnings. Patient was informed and verbally consented to the use of an ambient scribe for clinic note documentation during this visit. (2) Bilateral edema of lower extremity: Code(s): R60.0 - Localized edema Plan: as above Coding Level of Care Code Est Pt Level 4 (18171) Diagnoses Onychomycosis B35.1 Bilateral edema of lower extremity R60.0
[2024-06-11 08:43] VITALS: BP 134/76; PULSE 90; O2SAT 98; BMI 24.9
--- OUTSIDE RECORDS SUMMARY | 2024-06-11 08:46 | XMS_ITS | Continuity of Care Document ---
Author Organization [facility] ter Address [address] [place] [id number]- Care Team Providers Care [employer] Supervisor Name Role Phone Tran ALEXIS, Jayden Terrazas Primary Care Physician [phone] Encounter [facility] Date(s): 06/01/24 - 06/02/[address] [address]- Encounter Diagnosis Alcohol intoxication(Final) - 06/01/24 Fall(Final) - 06/01/24 Discharge Disposition: A-D/C Home Attending Physician: Tia Roman MD Admitting Physician: Tia Roman MD Referring Physician: Not on Staff, Referring MD Encounter Type: Disch ES Allergies, Adverse Reactions, Alerts Substance Criticality Severity Reaction Reaction Severity Status ciprofloxacin SWELLING, HIVES Active sulfADIAZINE SWELLING, HIVES A ctive Augmentin hives Active Immunizations Given and Recorded Vaccine Date Status Refusal Reason tetanus/diphtheria/pertussis, acel(Tdap) 03/05/11 Given Medications acamprosate 333 mg oral delayed release tablet 2 tablet = 666 mg, By Mouth, 3 times a day, # 180 tablet, 0 Refills, Maintenance, 03/02/24 8:53:00 AM EDT, EC Tablet, [facility], Partial fill upon patient request if the prescription is for a schedule II opioid drug., 160, cm, 03/02/24 6:28:00 EDT, Height, 61.36, kg, 03/01/24 12:16:00 EDT, Dry Weight Start Date: 03/02/24 Stop Date: 04/01/24 Status: Ordered Quantity: 180.0 Unit: tablet Repeat number: 1 Advair Diskus 100 mcg-50 mcg inhalation powder 2 puffs, Inhalation, 2 times a day, # 1 cartridge, 0 Refills, Soft Stop, 06/13/09 11:56:26 PM EST, Powder Start Date: 06/13/09 Stop Date: 07/13/09 Status: Ordered Quantity: 1.0 Unit: cartridge Repeat number: 1 clonazePAM 0.5 mg oral tablet TAKE ONE TABLET BY MOUTH TWICE A DAY NEEDED FOR ANXIETY Start Date: 09/21/22 Status: Ordered Repeat number: 1 folic acid 1 mg oral tablet 1 mg, 1, tablet, By Mouth, Daily, # 90 tablet, Refills 0, Tot. Refills 0, Maintenance, 09/29/23 9:12:00 AM EDT, Route to Pharmacy Electronically, [id number], Partial fill upon patientrequest if the prescription is for a schedule II opioid drug., 163, cm, 09/28/23 10:10:00 EDT, Height, 61.1, kg, 09/25/23 5:13:00 EDT, Dry Weight Start Date: 09/29/23 Stop Date: 10/29/23 Status: Ordered Quantity: 90.0 Unit: tablet Repeat number: 1 lidocaine topical 2% solution 5 mL = 0.1 Gm, Swish and Spit, Every 4 hours, PRN Other, Mouth Pain, # 100 mL, 0 Refills, Maintenance, 03/02/24 8:55:00 AM EDT, Solution, [facility], Partial fill upon patient request if the prescription is for a schedule II opioid drug., 5 mL Swish and Spit Every 4 hours,PRN:Other,Instr:Mouth Pain, 160, cm, 03/02/24 6:28:00 EDT, Height, 61.36, kg, 03/01/24 12:16:00 EDT, Dry Weight Start Date: 03/02/24 Status: Ordered Quantity: 100.0 Unit: mL Repeat number: 1 omeprazole 40 mg oral enteric coated capsule = 40 mg, By Mouth, Daily, # 90 each, 0 Refills, Maintenance, 09/29/23 9:12:00 AM EDT, Suspension, [id number], Partial fill upon patient request if the prescription is for a schedule II opioid drug., 163, cm, 09/28/23 10:10:00 EDT, Height, 61.1, kg, 09/25/23 5:13:00 EDT, Dry Weight Start Date: 09/29/23 Status: Ordered Quantity: 90.0 Unit: each Repeat number: 1 QUEtiapine 25 mg oral tablet 25 mg, 1, tablet, By Mouth, Daily, TAKE ONE TABLET BY MOUTH AT BEDTIME, # 30 tablet, Refills 0, Tot. Refills 0, Maintenance, 09/28/23 11:08:00 AM EDT, Route to Pharmacy Electronically, [id number], Partial fill upon patient request if the prescription is for a schedule II opioid drug., 163, cm, 09/28/23 10:10:00 EDT, Height, 61.1, kg, 09/25/23 5:13:00 EDT, Dry Weight Start Date: 09/28/23 Status: Ordered Quantity: 30.0 Unit: tablet Repeat number: 1 rosuvastatin 5 mg oral tablet 1 tablet = 5 mg, By Mouth, Daily, # 30 tablet, 0 Refills, Maintenance, 09/25/23 3:37:00 AM EDT, Tablet, Partial fill upon patient request if the prescription is for a schedule II opioid drug. Start Date: 09/25/23 Status: Ordered Quantity: 30.0 Unit: tablet Repeat number: 1 sertraline 25 mg oral tablet = 75 mg, By Mouth, Daily, # 90 capsule, 0 Refills, Maintenance, 09/29/23 9:12:00 AM EDT, Tablet, [id number], Partial fill upon patient request if the prescription is for a schedule IIopioid drug., 163, cm, 09/28/23 10:10:00 EDT, Height, 61.1, kg, 09/25/23 5:13:00 EDT, Dry Weight Start Date: 09/29/23 Stop Date: 10/29/23 Status: Ordered Quantity: 90.0 Unit: capsule Repeat number: 1 Vitamin D3 2000 intl units oral tablet TAKE ONE TABLET BY MOUTH EVERY DAY Start Date: 07/25/23 Status: Ordered Repeat number: 1 Problem List Condition Confirmation Course Effective Dates Status H ealth Status Informant ALCOHOL ABUSE Confirmed Active Alcoholic cirrhosis of liver Confirmed Active Anxiety Confirmed Active Depression Confirmed Active GERD (gastroesophageal reflux disease) Confirmed Active Hyperlipidemia Confirmed Active HYPERTENSION Confirmed Active Pancytopenia Confirmed Active Results Radiology Reports * Exam Date Time Procedure Performing Provider Status 06/01/24 10:[address] Maxilloface W/O Contrast Fletcher Jasmin Ashlie; Ariella (Verified) Notes: (CT Maxilloface W/O Contrast) Reason For Exam: Trauma RESULT: CT Maxilloface W/O Contrast CT Head/Brain W/O Contrast, CT Cervical Spine W/O Contrast, CT Maxillofacial W/O Contrast CLINICAL INDICATION: Injured in a fall, striking face. Facial pain. Heavy alcohol use. Suspected intoxication.. PRIOR EXAMS: 09/25/2023.. TECHNIQUE: Incremental CT scan through the head and spiral CT through the face and cervical spine without contrast, formatted in multiple planes. The cervical and facial portions of the exam were performed with automatic exposure control. RADIATION DOSE PARAMETERS: CTDIvol Body: 9.70 mGy, DLP Body: 301 mGy*cm. CTDIvol Head: 41.50 mGy, DLP Head: 671 mGy*cm. FINDINGS: BRAIN: There is no infarct. There is no intracerebral hemorrhage. There is no mass. VENTRICLES AND SULCI: The ventricles and sulci are symmetrical and normal. WHITE MATTER: No white matter abnormality. EXTRA AXIAL SPACES: There is no abnormal epidural, subdural, or subarachnoid blood or fluid. SKULL: There is no skull fracture.. TEMPORAL BONES: The mastoid air cells are clear, as are the middle ear cavities. CERVICAL VERTEBRAL BODIES: There is no fracture. There is no focal bony lesion.. ALIGNMENT OF CERVICAL SPINE: The cervical vertebral bodies are in normal alignment.. CERVICAL DEGENERATIVE CHANGES: Mild degenerative change. LUNG APICES: No pneumothorax. MANDIBLE: No fracture or focal lesion.. The temporomandibular joints are intact. OTHER FACIAL BONES: The other facial bones show no fracture. SOFT TISSUES OF ORBITS: The soft tissue contents of the orbital cavity are normal bilaterally, including intact globes. PARANASAL SINUSES: Clear. OTHER SOFT TISSUES: No hematoma.. IMPRESSION: HEAD 1. No acute intracranial abnormalities. 2. No skull fracture. CERVICAL SPINE: 1. There is no fracture. There is no focal bony lesion. 2. Normal alignment. 3. Mild degenerative change. MAXILLOFACIAL: 1. No facial bone fracture. 2. Soft tissue contents of the orbits are intact. WSN: [id number] Ordering Physician: Jasmin Rehman Dictated By: Vazquez Mayes MD Dictated Date/Time: 06/01/24 10:16 p Reviewed By: Vazquez Mayes MD Signed By: Vazquez Mayes MD Signed Date/Time: 06/01/24 10:16 pm Transcribed By: NATALIE Transcribed Date/Time: 06/01/24 10:16 pm * Exam Date Time Procedure Performing Provider Status 06/01/24 10:[address] Cervical Spine W/ O Contrast Jasmin Fletcher; Auth (Verified) Notes: (CT Cervical Spine W/O Contrast) Reason For Exam: Trauma RESULT: CT Cervical Spine W/O Contrast CT Head/Brain W/O Contrast, CT Cervical Spine W/O Contrast, CT Maxillofacial W/O Contrast CLINICAL INDICATION: Injured in a fall, striking face. Facial pain. Heavy alcohol use. Suspected intoxication.. PRIOR EXAMS: 09/25/2023.. TECHNIQUE: Incremental CT scan through the head and spiral CT through the face and cervical spine without contrast, formatted in multiple planes. The cervical and facial portions of the exam were performed with automatic exposure control. RADIATION DOSE PARAMETERS: CTDIvol Body: 9.70 mGy, DLP Body: 301 mGy*cm. CTDIvol Head: 41.50 mGy, DLP Head: 671 mGy*cm. FINDINGS: BRAIN: There is no infarct. There is no intracerebral hemorrhage. There is no mass. VENTRICLES AND SULCI: The ventricles and sulci are symmetrical and normal. WHITE MATTER: No white matter abnormality. EXTRA AXIAL SPACES: There is no abnormal epidural, subdural, or subarachnoid blood or fluid. SKULL: There is no skull fracture.. TEMPORAL BONES: The mastoid air cells are clear, as are the middle ear cavities. CERVICAL VERTEBRAL BODIES: There is no fracture. There is no focal bony lesion.. ALIGNMENT OF CERVICAL SPINE: The cervical vertebral bodies are in normal alignment.. CERVICAL DEGENERATIVE CHANGES: Mild degenerative change. LUNG APICES: No pneumothorax. MANDIBLE: No fracture or focal lesion.. The temporomandibular joints are intact. OTHER FACIAL BONES: The other facial bones show no fracture. SOFT TISSUES OF ORBITS: The soft tissue contents of the orbital cavity are normal bilaterally, including intact globes. PARANASAL SINUSES: Clear. OTHER SOFT TISSUES: No hematoma.. IMPRESSION: HEAD 1. No acute intracranial abnormalities. 2. No skull fracture. CERVICAL SPINE: 1. There is no fracture. There is no focal bony lesion. 2. Normal alignment. 3. Mild degenerative change. MAXILLOFACIAL: 1. No facial bone fracture. 2. Soft tissue contents of the orbits are intact. WSN: [id number] Ordering Physician: Jasmin Rehman Dictated By: Vazquez Mayes MD Dictated Date/Time: 06/01/24 10:16 p Reviewed By: Vazquez Mayes MD Signed By: Vazquez Mayes MD Signed Date/Time: 06/01/24 10:16 pm Transcribed By: NATALIE Transcribed Date/Time: 06/01/24 10:16 pm * Exam Date Time Procedure Performing Provider Status 06/01/24 10:[address] Head/Brain W/O Contrast Jasmin Fletcher; Auth (Verified) Notes: (CT Head/Brain W/O Contrast) Reason For Exam: Brain mass or lesion;Other: RESULT: CT Head/Brain W/O Contrast CT Head/Brain W/O Contrast, CT Cervical Spine W/O Contrast, CT Maxillofacial W/O Contrast CLINICAL INDICATION: Injured in a fall, striking face. Facial pain. Heavy alcohol use. Suspected intoxication.. PRIOR EXAMS: 09/25/2023.. TECHNIQUE: Incremental CT scan through the head and spiral CT through the face and cervical spine without contrast, formatted in multiple planes. The cervical and facial portions of the exam were performed with automatic exposure control. RADIATION DOSE PARAMETERS: CTDIvol Body: 9.70 mGy, DLP Body: 301 mGy*cm. CTDIvol Head: 41.50 mGy, DLP Head: 671 mGy*cm. FINDINGS: BRAIN: There is no infarct. There is no intracerebral hemorrhage. There is no mass. VENTRICLES AND SULCI: The ventricles and sulci are symmetrical and normal. WHITE MATTER: No white matter abnormality. EXTRA AXIAL SPACES: There is no abnormal epidural, subdural, or subarachnoid blood or fluid. SKULL: There is no skull fracture.. TEMPORAL BONES: The mastoid air cells are clear, as are the middle ear cavities. CERVICAL VERTEBRAL BODIES: There is no fracture. There is no focal bony lesion.. ALIGNMENT OF CERVICAL SPINE: The cervical vertebral bodies are in normal alignment.. CERVICAL DEGENERATIVE CHANGES: Mild degenerative change. LUNG APICES: No pneumothorax. MANDIBLE: No fracture or focal lesion.. The temporomandibular joints are intact. OTHER FACIAL BONES: The other facial bones show no fracture. SOFT TISSUES OF ORBITS: The soft tissue contents of the orbital cavity are normal bilaterally, including intact globes. PARANASAL SINUSES: Clear. OTHER SOFT TISSUES: No hematoma.. IMPRESSION: HEAD 1. No acute intracranial abnormalities. 2. No skull fracture. CERVICAL SPINE: 1. There is no fracture. There is no focal bony lesion. 2. Normal alignment. 3. Mild degenerative change. MAXILLOFACIAL: 1. No facial bone fracture. 2. Soft tissue contents of the orbits are intact. WSN: [id number] Ordering Physician: Jasmin Rehman Dictated By: Vazquez Mayes MD Dictated Date/Time: 06/01/24 10:16 p Reviewed By: Vazquez Mayes MD Signed By: Vazquez Mayes MD Signed Date/Time: 06/01/24 10:16 pm Transcribed By: NATALIE Transcribed Date/Time: 06/01/24 10:16 pm Vital Signs Most recent to oldest [Reference Range]: 1 2 3 Oxygen Saturation [94-100 %] 98 % (06/02/24 8:37 AM) 98 % (06/02/24 5:37 AM) 100 % (06/01/24 1:56 PM) Pulse Rate [55-90 bpm] 100 bpm *H* (06/02/24 8:37 AM) 98 bpm *H* (06/02/24 6:25 AM) 78 bpm (06/02/24 5:37 AM) Blood Pressure [90-138/55-84 mm Hg] 119/100mm Hg (06/02/24 8:37 AM) 113/79mm Hg (06/02/24 6:25 AM) 118/65mm Hg (06/02/24 5:37 AM) Respiratory Rate [16-30 br/min] 16 br/min (06/02/24 8:37 AM) 15 br/min *L* (06/02/24 6:25 AM) 19 br/min (06/02/24 5:37 AM) Temperature [96.8-100.4 DegF] 98.2 DegF (06/02/24 8:37 AM) 98.3 DegF (06/02/24 6:25 AM) 97.8 DegF (06/02/24 5:37 AM) Mode of Delivery (Oxygen) Room air (06/02/24 8:37 AM) Room air (06/02/24 5:37 AM) Room air (06/01/24 1:56 PM) Blood pressure sites Arm, left (06/02/24 8:37 AM) Arm, left (06/02/24 5:37 AM) Arm, right (06/01/24 1:56 PM) Temperature Route Oral (06/02/24 8:37 AM) Oral (06/02/24 6:25 AM) Oral (06/02/24 5:37 AM) Social History Social History Type Response Sex Female Sex Representation Female (finding) EKG study * Event Display: ECG 12-Lead Authored Date: [id number] Please click on pdf link to open report * Event Display: ECG 12-Lead Authored Date: [id number] Ventricular Rate: 95 BPM Atrial Rate: 95 BPM P-R Interval: 176 ms QRS Duration: 84 ms Q-T Interval: 356 ms QTC Calculation(Bazett): 447 ms P Lynn: 57 degrees R Lynn: 41 degrees T Lynn: 58 degrees Normal sinus rhythm Nonspecific T wave abnormality Abnormal ECG When compared with ECG of 29-Feb-2024 11:16, No significant change was found Confirmed by Johnny Roman ([id number]) on 06/01/2024 3:21:13 PM [place]: Johnny Roman Note * Abel BROWN, Tia Hong: NICO Event Display: Patient Education Leaflets Authored Date: [id number] Alcohol and Substance Abuse Disorder Resources ?? 703 Alcohol & Substance Use Disorder Resources? Short-term Detox Programs ?? - you can call these facilities directly to see if a bed is available ??? however, you may be told to call back every 2 hours ??? if you are told this, PLEASE follow those instructions! Bed availability can change very quickly! ? [facility] ??? ([place] ??? provides transportation) ??? [facility] ??? [phone] ([place]) ??? [facility] (Veterans only) ??? [phone] ([place] ??? [facility] ??? [phone] ([place]) ??? [facility] ??? [facility]- ([place]) ??? [facility] ??? / [phone] ([place]) ??? [facility] -?? [phone] ([place]) ??? [facility] ??? / ([place]) ??? [facility] - [phone] ([place]) ??? [facility] - [phone] ([place]) ??? [facility] - [phone] ([place]) ??? [facility] - [phone] ([place]) ??? [facility] - [phone] ??([place]) ??? [facility] - [phone] ([place]) ??? [facility] - [phone] ([place]) ???[facility] - [phone] ([place]) ??? [facility] - [phone] ([place]) ??? [facility] - [phone] - ([place]) ??? [facility] [facility] - [phone] ([place]) ??? [facility] - [phone] ([place]) ??? [facility] - [phone] ([place]) ??? [facility] - [phone] ([place]) ??? [facility] - [phone] ([place]) ??? [facility] - [phone] ([place]) ??? [facility] - [phone] ([place]) ??? [facility] - [phone] ([place]) ??? [facility] [place] ??? [phone] Intensive Outpatient / Day Treatment Programs ??? some programs offer mornings, some evenings, someboth. Call for more information. Can usually call directly for an intake appointment. Some insurances may require a referral from your doctor. ? [facility] ??? IOP ??? [phone] ([place]) ??? [facility] ??? IOP ??? [phone] ([place]) ??? [facility] ??? IOP ??? [phone] ([place]) ??? [facility] ??? [facility] ??? IOP ??? [phone] ([place]) ??? [facility] -I[facility]- [phone] or [phone] ?? Outpatient Clinics Specializing in Substance Use Disorder Treatment ??? call directly for information or an intake appointment ??? [facility] - [phone] ([place]) ??? [facility] - [phone] ([place]) ??? [facility] - [phone] ??? [facility] - [phone] ([place]) ??? [facility] - [phone] ([place]) ??? [facility] - [phone] ([place]), ([place]), ([place]) ??? [facility] ([place])- [phone] ([place]) ??? [facility] - [phone] ([place]) ??? [facility] - [phone] ([place]) ??? [facility] - [phone] ([place]) ??? [facility] - [phone] ([place]) ??? [facility] - [phone] ([place]) ??? [facility] - [phone] ([place]) ??? [facility] - [phone] ([place]) ??? [facility] - [phone] ([place]) ??? [facility] - [phone] ([place]) ??? [facility] - [phone] ([place]) ??? [facility] - [phone] ([place]) ? ? [facility] - [phone] ([place]) ??? [facility] - [phone] ([place]) ?? Medication Assisted Treatment Programs ??? Call directly for information or for intake ?? Methadone ??? [facility] ([place]) - [phone] ([place]) ??? [facility] - ??[phone] ([place]) ??? Health Care Resource Centers?? Multiple Locations ??? Call Main # ??for intake at any site ??? [phone] ??? [facility] ??? [phone] ??? [place] (methadone, suboxone & vivitrol) Suboxone, Vivitrol, Sublocade (Call for information) ??? [facility] ??? [phone] ([place]) ??? [facility] ??? [phone] ([place]) ??? [facility] ([place]) - [phone] ([place]) ??? [facility] ??? [phone] ([facility], Main #) ??? [facility] - [phone] ([facility] Main #) ??? [facility] ??? ([place] ) [phone] ?? CSS & Long-Term Residential Programs ? Typically require a referral from a detox or other interim residential program ??? call for information ??? [facility] ??? men ??? [phone] ([place]) ??? [facility] ??? women ??? [phone] ([place]) ??? [facility] ??? men - ([place]) ??? [facility] ??? men/women ??? 1- ([place]) ??? [facility] ??? men/women [phone] ([place]) ??? [facility] ??? women ??? Intake: [phone]; ([place]) ??? [facility] ??? Men - [phone] ([place]) ??? [facility] ??? women ??? [phone] ([place]) ??? [facility] - [phone] ([place]) ??? [facility] ??? Alison ([facility]) - ([facility]) ??? [facility] ??? woman w/ children ??? [phone] ??? ([place]) ??? [facility] ??? men/women [phone] ([place]) ??? [facility] ??? men ??? [phone] ([place]) ??? [facility] ??? women ??? [phone] ([place]) ??? [facility] ??? men/women - [phone] ([place]) ??? [facility] ??? men/women - [phone] ext. [phone] ([place]) ??? [facility] CSS - men/women - [phone] - ([place]) ??? [facility]?? - men/women - Intake - ??? ([place]) ??? [facility] CSS - men/women - [phone] ([place]) ??? [facility] ??? Alison ([facility]) - (intake) ?? Hotlines ??? To find a meeting or for peer support ??? Alcoholics Anonymous ??? [phone] ??? Narcotics Anonymous ? Gamblers Anonymous ? Support for Families & Friends ? To find a meeting or for peer support ? ? Al-Anon ? [phone], ??? [place]-Anon ??? [phone] ??? Al-A-Teen ??? [phone] ??? Learn to [place] ??? [phone] www.xuage2jpai.org For Additional Resources Statewide call: ?? [place] Substance Abuse Information Hotline ? (13/12) To search online for [facility] services and possible bed availability (local & statewide): https://www.Shelfari ?? Click on ???substance use search?? and ??use the drop-down box to choose type of facility (ATS = detox) ? * Abel BROWN, Tia Hong: PERFORM Event Display: Patient Education Leaflets Authored Date: [id number] Head Injury (Adult) ?? [id number] Head Injury (Adult) You have a head injury. It doesn't appear serious at this time. But symptoms of a more serious problem, such as a mild brain injury (concussion) or bruising or bleeding in the brain, may appear later. For this reason, you or someone caring for you will need to watch for the symptoms listed below. Once you???re home, also be sure to follow any care directions you???re given. Home care Watch??for the following symptoms Seek emergency medical care if you have any of these symptoms over the next hours to days:? Headache that gets worse or doesn't go away ??? Nausea or vomiting ??? Dizziness ??? Sensitivity to light or noise ??? Unusual sleepiness or grogginess ??? Trouble falling asleep ??? Personality changes ??? Vision changes ??? Memory loss ??? Confusion ??? Trouble walking or clumsiness ??? Loss of consciousness (even for a short time) ??? Inability to be awakened ??? Stiff neck ??? Weakness ornumbness in any part of the body ??? Seizures General care ??? If you were prescribed medicines for pain, use them as directed. Note: Don???t take other medicines for pain without talking to your healthcare provider first. ??? To help reduce swelling and pain, apply a cold source to the injured area for up to 20 minutes at a time. Do this as often??as directed. Use a cold pack or bag of ice wrapped in a thin towel. Never apply a cold source directly to the skin. ??? If you are on a blood thinner for a health condition and have a head injury, follow your healthcare provider's specific directions. You are at a higher risk for bleeding fromthe blood thinner, so your provider will talk to you about taking extra precautions. ??? If you have cuts or scrapes as a result of your head injury, care for them as directed. ??? For the next 24 hours??(or longer, if directed): o Don???t drink alcohol or use sedatives or other medicines that makeyou sleepy. o Don???t drive or operate machinery. o Don???t do anything strenuous, such as heavy lifting or straining. o Limit tasks that need concentration. This includes reading, using a smartphone or computer, watching TV, and playing video games. o Don???t return to sports or other activities that could result in another head injury until approved by your healthcare provider. ?? Follow-up care Follow up with your healthcare provider, or as directed.??If imaging tests were done, they will be reviewed by a healthcare provider. You will be told the results and any new findings that may affectyour care. ?? When to seek medical advice Call your healthcare provider right away if any of the following occur: ??? Pain doesn???t get better or gets worse ??? New or increased swelling or bruising ??? Increased redness,??warmth,??drainage, or bleeding from the injured area ??? Fluid drainage or bleeding from the nose or ears ??? Any depression or bony abnormality in the injured area ??? Persistent confusion or lethargy ??? Personalitychanges ??? Bruising behind the ears or bruising around the eyes ?? Last Reviewed Date: 2022 ?? [id number] [employer]. All rights reserved. This information is not intended as a substitute for professional medical care. Always follow your healthcare professional's instructions. ?? Patient Care team information Care Team Personnel Name: Sandra Mcmahon RN Position: Earl MALDONADO RN Member Role: Primary Care Nurse Name: Cooper Grimm RN Position: S RN Member Role: Primary Care Nurse Name: Jayden Mayfield NP Position: Reference Physician Member Role: PCP Address: [address] [place] [address] Telecom: Name: Miguelito Rojas RN Position: S RN Member Role: Primary Care Nurse Care Team Related Persons Name: DEE DEE WALSH Name: SKYLAR WALSH Name: WASHINGTON KILLIAN Insurance Providers Guarantor name: [employer] Health Plan Information #: 1 Payer: [employer] Member Number: [id number] Policy Number: [employer] Group Number: [facility] Health Plan Information #: 2 Payer: [employer] Member Number: [id number] Policy Number: [employer]HOU Group Number: [id number]
== END 2024-06-11 09:16 | disposition home or self-care (01) ==
PROVIDERS: PCP Nurse Practitioner Family; Visit Provider Physician Assistant
DX: B35.1 Tinea unguium (principal); R60.0 Localized edema

== ENCOUNTER → 2024-06-11 08:37 | Outpatient (BNVA) | payer OTHER, SELFPAY | PROVIDERS: PCP Nurse Practitioner Family; Visit Provider Physician Assistant | DX: B35.1 Tinea unguium (principal); R60.0 Localized edema | CPT/HCPCS: 99212 ==

== ENCOUNTER 2024-06-11 12:46 | Outpatient (AMB) | payer OTHER, SELFPAY ==
--- NOTE | 2024-06-11 13:19 | MHC.AM.SUB ---
Intake Visit Reasons: MAT Office Allergies amoxicillin [Augmentin] Allergy (Unknown, Verified 06/11/24 08:47) hives ciprofloxacin [From CIPRO] Allergy (Unknown, Verified 06/11/24 08:47) HIVES clavulanic acid [Augmentin] Allergy (Unknown, Verified 06/11/24 08:47) hives trazodone Allergy (Unknown, Verified 06/11/24 08:47) unknown HPI HPI MAT Office: Details: Patient presents for AUD treatment follow up Reports a recurrence with alcohol --started drinking on missed 2 days of work Disciplinary action at work Taken to ED after wellness check call Relapse prevention plan worksheet coping strategies worksheet restarted Naltrexone Review of Systems Const Reports as per HPI Physical Exam Const General: cooperative, healthy appearing and well groomed Nutritional Appearance: average body habitus Limitations: no limitations Psych Appearance: well kempt Speech and movement: Normal speech and movement present Affect: normal affect Attitude: cooperative Thought process: Normal thought process present Thought content: Normal thought content present Insight: Good insight present (Psych) Judgement: Good judgement present (Psych) [facility] Medical History Fractured nose ETOH abuse Alcohol abuse Anxiety and depression Aftercare following left shoulder joint replacement surgery Surgical History History of shoulder surgery Family History Father Bladder cancer Lung cancer Eye cancer Mother HTN (hypertension) Sister No problems noted. Son No problems noted. Daughter No problems noted. Maternal Grandmother HTN (hypertension) Paternal Grandfather No problems noted. Maternal Grandfather No problems noted. Paternal Grandmother No problems noted. 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
== END 2024-06-11 14:25 | disposition home or self-care (01) ==
PROVIDERS: PCP Nurse Practitioner Family; Visit Provider Nurse Practitioner Psychiatric/Mental Health
DX: F10.20 Alcohol dependence, uncomplicated (principal)
CPT/HCPCS: 99214

== ENCOUNTER 2024-06-19 13:56 | Outpatient (AMB) | payer OTHER, SELFPAY ==
--- NOTE | 2024-06-19 13:58 | A.OFFPC_ITS ---
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 Accompanied by: Self / Same As Patient Allergies amoxicillin [Augmentin] Allergy (Unknown, Verified 06/19/24 13:59) hives ciprofloxacin [From CIPRO] Allergy (Unknown, Verified 06/19/24 13:59) HIVES clavulanic acid [Augmentin] Allergy (Unknown, Verified 06/19/24 13:59) hives trazodone Allergy (Unknown, Verified 06/19/24 13:59) unknown Medication List - Last Reconciled 06/19/24 by LEONID Tuttle- albuterol sulfate 90 mcg/actuation (Ventolin HFA) 2 puffs inhalation Q6H PRN albuterol sulfate 90 mcg/actuation 2 puffs inhalation Q6H PRN cholecalciferol (vitamin D3) 50 mcg PO DAILY clonazepam 0.5 mg PO BID PRN 30 days fluticasone propion-salmeterol 250-50 mcg/dose 1 inh inhalation BID hydroxyzine pamoate mg PO Magic Mouthwash Diphen/Lido/Antacid 1:1:1 10 mL PO BID omeprazole 40 mg PO DAILY 90 days rosuvastatin 5 mg PO DAILY sertraline 75 mg (1.5 x 50 mg) PO DAILY Tobacco use date assessed: 06/19/24 Dental Screening Dental Screen Date: 06/19/24 Did you have a dental visit in the last 12 months?: Yes Did you have a dental problem in the last 6 months where you did not have access to dental care?: No Was dental information given to patient?: Patient has dentist HPI 3 months f/up - see comments HPI Details Chief Complaint Follow-up for alcohol use disorder and chin injury from fall. History of Present Illness The patient is a 59-year-old female presenting for a follow-up visit concerning her alcohol use disorder and recent fall-related chin injury. She was recently admitted to the hospital on March 04 due to a fall while under the influence of alcohol, specifically after consuming 13 nips of alcohol. During this incident, the patient sustained a chin injury from hitting the ground. Imaging of the head and spine revealed no acute traumatic injuries. She has since entered addiction medicine treatment and commenced on naltrexone therapy. The patient reports abstaining from alcohol consumption since initiating treatment. A recent laboratory evaluation indicated the presence of leukopenia and mild anemia. Additionally, the patient has experienced palpitations; however, she denies associated chest pain, exacerbated gastrointestinal reflux disease symptoms, or radicular symptoms in the upper extremities. Previous evaluations included an electrocardiogram (EKG), with plans for a Holter monitor assessment. Social History - Current participation in [employer] for alcohol use disorder - Recent alcohol consumption of 13 nips leading to hospitalization for a fall Health Maintenance - Naltrexone therapy for alcohol use melvin mination Review of Systems - Cardiovascular: Reports palpitations; denies chest pain or radicular symptoms - Gastrointestinal: Denies exacerbation of GERD Physical Exam General: Cooperative, healthy appearing, comfortable, no acute distress and well developed Orientation: Patient oriented x3 Limitations: No limitations Head: Normal to inspection Ears: Hearing grossly normal bilaterally Nose: Normal external nose present Face and sinus: Normal facial exam Eyes: Appearance normal, both eyes and all related structures Neck: Normal visual inspection and Yes full ROM Respiratory: Normal respiratory effort and able to speak in complete sentences. Clear to auscultation bilaterally Cardiovascular: Regular rate and rhythm. Normal S1 and S2. Reports palpitations, EKG and Holter monitor planned GI: Normal to inspection. Soft to palpation and nontender Skin: No rashes or lesions noted Neuro: Patient oriented x3 Extremities: Normal to inspection Results - Labs: Leukopenia, mild anemia, B12 lev el obtained - Tests: EKG (office), Holter monitor pl anned - Imaging: Head and spine imaging withou t acute traumatic injuries Plan - Continue monitoring naltrexone therapy for Alcohol Use Disorder and ensure patient abstains from alcohol. - Address fall-related chin injury with appropriate wound care and monitor for any late complications. - Evaluate and manage leukopenia and ane kenji via repeat lab testing; consider nutritional supplementation if indicated by results. - Investigate palpitations with EKG and follow-up Holter monitor to assess for any underlying arrhythmias. - Continue regular follow-up appointment s to monitor improvements in health and substance use status. Patient was informed and verbally consented to the use of an ambient scribe for clinic note documentation during this visit. Discussion Notes I discussed with the patient the importance of adhering to addiction medicine interventions, including the naltrexone regimen, to maintain alcohol abstinence and monitor for any potential side effects. We reviewed the implications of the laboratory findings, including leukopenia and mild anemia, and considered the impact of vitamin B12 levels on these conditions. I recommended the continuation of current therapies and the need for close follow-up with repeat laboratory assessments. Additionally, I discussed the cardiovascular assessment with EKG and Holter monitoring to identify the etiology of palpitations. The patient consented to the diagnostic evaluations and agreed to the treatment plan, including wound care for the chin injury. Patient Instructions - Continue taking naltrexone as prescrib ed and abstain from alcohol consumption. - Follow the regimen for chin injury car e as instructed. - Report to the clinic if any new sympto ms arise or existing symptoms worsen. - Attend follow-up appointments for repe at lab tests and Holter monitoring. - Monitor for any palpitations and recor d occurrences if possible. [facility] Medical History Fractured nose ETOH abuse Alcohol abuse Anxiety and depression Aftercare following left shoulder joint replacement surgery Surgical History History of shoulder surgery Family History Father Bladder cancer Lung cancer Eye cancer Mother HTN (hypertension) Sister No problems noted. Son No problems noted. Daughter No problems noted. Maternal Grandmother HTN (hypertension) Paternal Grandfather No problems noted. Maternal Grandfather No problems noted. Paternal Grandmother No problems noted. 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 1. Little interest or pleasure in doing things: not at all 2. Feeling down, depressed, or hopeless: several days 3. Trouble falling or staying asleep, or sleeping too much: several days 4. Feeling tired or having little energy: several days 5. Poor appetite or overeating: several days 6. Feeling bad about yourself - or that you are a failure or have let yourself or your family down: more than half the days 7. Trouble concentrating on things, such as reading the newspaper or watching television: not at all 8. Moving or speaking so slowly that other people could have noticed. Or the opposite - being so fidgety or restless that you have been moving around a lot more than usual: not at all 9. Thoughts that you would be better off or of hurting yourself in some way: not at all Total score: 6 Depression Screening Interpretation: Negative Depression Screening Done: Yes 27269 - PHQ-9 Billing: Yes Source: Developed by Drs. Usama Wheeler, Veda Coreas, Varun Ashley and colleagues, with an educational brian from [employer]. Thrive Questionnaire Date Thrive assessed: 06/19/24 I am a: Patient What is your living situation today?: I have a steady place to live Within the past 12 months, did the food you bought not last and you didn't have the money to get more?: I choose not to answer this question Within the past 12 months, did you worry whether your food would run out before you got money to buy more?: I choose not to answer this question Do you have trouble paying for medicines?: No Do you have trouble getting transportation to medical appointments?: No Do you have trouble paying your heating and electricity bill?: Yes Do you have trouble taking care of your child, family member or friend?: No Do you have trouble with day-to-day activities such as bathing, preparing meals, shopping, managing finances, etc.?: No Are you interested in more education?: No Please select the resources that you would like help with: None Currently or been in a relationship where the following occur: No concerns reported THRIVE Score: 1 AUDIT C Alcohol Use Questionnaire (AUDIT-C) 1. How often do you have a drink containing alcohol?: Never 3. How often do you have six or more drinks on one occasion?: Never Total Score: 0 Score Reviewed/Action Taken: Yes TOMAS-7 AMB Questionnaire TOMAS-7 Date TOMAS - 7 assessed: 06/19/24 Feeling nervous, anxious, or on edge: 3 = Nearly every day Not being able to stop or control worryin = More than half the days Worrying too much about different things: 2 = More than half the days Trouble relaxin = Several days Being so restless that it is hard to sit still: 0 = Not at all Becoming easily annoyed or irritable: 0 = Not at all Feeling afraid as if something awful might happen: 0 = Not at all Total TOMAS-7 score (0-4 normal; 5-9 mild; 10-14 moderate; 15-21 severe): 8 Source: Developed by Drs. Usama Wheeler, Veda Coreas, Varun Ashley and colleagues, with an educational brian from [employer]. TOMAS-7 Assessment Billing TOMAS-7 Assessment Tool: TOMAS-7 Assessment 10326 Physical exam (Primary Care) Vital Signs: Last Vital Signs Pulse 78 06/19/24 13:59 BP 120/70 06/19/24 13:59 Pulse Ox 98 06/19/24 13:59 Oxygen Delivery Method Room Air 06/19/24 13:59 BMI result Body Mass Index 24.5 Tobacco/Smoking Status: Tobacco use Status Tobacco use date assessed 06/19/24 06/19/24 14:00 Patient Tobacco Use Status Former Tobacco user 06/19/24 14:00 e-Cigarette/Vaping Use Never Used 06/19/24 14:00 PHQ-9: PHQ-9 Score PHQ-9: Total score 6 06/19/24 14:05 Depression Screening Interpretation: Negative Thrive Assessment: Date of Thrive Assessment Date Thrive assessed 06/19/24 06/19/24 14:00 Currently or been in a relationship where the following occur: No concerns reported Coding Level of Care Code Est Pt Level 3 (39262) Diagnoses Leukopenia D72.819 Alcohol use disorder, severe, dependence F10.20 Anemia D64.9 Palpitations R00.2 Additional Codes TOMAS-7 Assessment Billing - TOMAS-7 Assessment Tool: TOMAS-7 Assessment 89063 ([id number]) PHQ-9 - 26892 - PHQ-9 Billing: Yes ([id number]) Assessment & Plan Assessment & Plan (1) Leukopenia: Code(s): D72.819 - Decreased white blood cell count, unspecified Category: Medical (2) Alcohol use disorder, severe, dependence: Code(s): F10.20 - Alcohol dependence, uncomplicated Category: Medical (3) Anemia: Code(s): D64.9 - Anemia, unspecified Category: Medical (4) Palpitations: Code(s): R00.2 - Palpitations Category: Medical Plan . Orders: Orders Complete Blood Count Auto Diff Today D64.9 - Anemia, unspecified, D72.819 - Decreased white blood cell count, unspecified, F10.20 - Alcohol dependence, uncomplicated TSH reflex Free T4 Today D64.9 - Anemia, unspecified, D72.819 - Decreased white blood cell count, unspecified, F10.20 - Alcohol dependence, uncomplicated Reticulocyte Count Today D64.9 - Anemia, unspecified, D72.819 - Decreased white blood cell count, unspecified, F10.20 - Alcohol dependence, uncomplicated ECG 3 day holter monitor Today R00.2 - Palpitations Comprehensive [place]. Panel Fast Today D64.9 - Anemia, unspecified, D72.819 - Decreased white blood cell count, unspecified, F10.20 - Alcohol dependence, uncomplicated UA CC w/rflx Micro + Cult Today D64.9 - Anemia, unspecified, D72.819 - Decreased white blood cell count, unspecified, F10.20 - Alcohol dependence, uncomplicated Lipid Panel Today D64.9 - Anemia, unspecified, D72.819 - Decreased white blood cell count, unspecified, F10.20 - Alcohol dependence, uncomplicated Vitamin B12 and Folate Today D64.9 - Anemia, unspecified, D72.819 - Decreased white blood cell count, unspecified, F10.20 - Alcohol dependence, uncomplicated Lactate Dehydrogenase Today D64.9 - Anemia, unspecified, D72.819 - Decreased white blood cell count, unspecified, F10.20 - Alcohol dependence, uncomplicated AMB EKG-In Office Today R00.2 - Palpitations Medications: Changed From clonazepam 0.5 mg PO BID 30 days PRN 60 tabs 0RF anxiety To clonazepam not to share, cannot drive on while on med, take only as prescribed, CANNOT mix with alcohol 0.5 mg PO BID 30 days PRN 60 tabs 0RF anxiety
[2024-06-19 13:59] VITALS: BP 120/70; PULSE 78; O2SAT 98; BMI 24.5
--- OUTSIDE RECORDS SUMMARY | 2024-06-19 14:52 | XMS_ITS | Clinical Summary ---
Author Organization [facility] ity Address [address] [place] [address] Care Team Providers Care Hospital Cleaner Name Role Phone Unavailable Primary Care Provider Unavailabl e Social History Tobacco Use Types Packs/Day Years Used Date Smoking Tobacco: Never Assessed Sex and Gender Information Value Date Recorded Sex Assigned at Not on file Gender Identity Not on file Sexual Orientation Not on file Plan of Treatment Health Maintenance Due Date Last Done Comments Breast Cancer Screening 1966 DTaP,Tdap,and Td Vaccines (1 - Tdap) 1985 Hepatitis B Vaccines (1 of 3 - 19+ 3-dose series) 1985 Cervical Cancer Screening: P ap Smear 1987 Zoster Vaccines (1 of 2) 2016 Colorectal Cancer Screening: Colonoscopy 06/21/2023 Depression Screening 06/21/2023 HIV Screening 06/21/2023 Hepatitis C Screening 06/21/2023 Social Influencers of Health Screening 06/21/2023 COVID-19 Vaccine ( - 2023-2 5 season) 2024 Influenza Vaccine (#1) 2024 HIB Vaccines Aged Out No longer eligi ble based on patient's age to complete this topic HPV Vaccines Aged Out No longer eligi ble based on patient's age to complete this topic Hepatitis A Vaccines Aged Out No long er eligible based on patient's age to complete this topic IPV Vaccines Aged Out No longer eligi ble based on patient's age to complete this topic MMR Vaccines Aged Out No longer eligi ble based on patient's age to complete this topic Meningococcal ACWY Vaccine Aged Out N o longer eligible based on patient's age to complete this topic Pneumococcal Vaccine: Pediat rics (0 to 5 Years) and At-Risk Patients (6 to 64 Years) Aged Out No longer eligible b ased on patient's age to complete this topic RSV Immunization Patients Un estela 20 months Aged Out No longer eligible b ased on patient's age to complete this topic Varicella Vaccines Aged Out No longer eligible based on patient's age to complete this topic Advance Directives Documents on File Type Date Recorded Patient Security Delivery Specialist Expl anation Health Care Decision (hx) 05/06/2016 AD DOMINIQUE DIRECTIVE
== END 2024-06-19 14:40 | disposition home or self-care (01) ==
PROVIDERS: PCP Nurse Practitioner Family; Visit Provider Nurse Practitioner Family
DX: D72.819 Decreased white blood cell count, unspecified (principal); F10.20 Alcohol dependence, uncomplicated; D64.9 Anemia, unspecified; R00.2 Palpitations

== ENCOUNTER → 2024-06-19 13:56 | Outpatient (BNVA) | payer OTHER, SELFPAY | PROVIDERS: PCP Nurse Practitioner Family; Visit Provider Nurse Practitioner Family | DX: D72.819 Decreased white blood cell count, unspecified (principal); F11.20 Opioid dependence, uncomplicated; D64.9 Anemia, unspecified; R00.2 Palpitations | CPT/HCPCS: 96127; 99212 ==

== ENCOUNTER 2024-08-08 09:49 | Outpatient (AMB) | payer OTHER, SELFPAY ==
--- NOTE | 2024-08-08 09:59 | A.OFFVISCC_ITS ---
Intake Visit Reasons: MAT Allergies amoxicillin [Augmentin] Allergy (Unknown, Verified 06/19/24 13:59) hives ciprofloxacin [From CIPRO] Allergy (Unknown, Verified 06/19/24 13:59) HIVES clavulanic acid [Augmentin] Allergy (Unknown, Verified 06/19/24 13:59) hives trazodone Allergy (Unknown, Verified 06/19/24 13:59) unknown HPI HPI MAT: Details: Patient presents for AUD treatment follow up Discharged from [facility] on 07/29 ( to Tuesday) Had Vivitrol injection while there ---injection on 07/29 Sertraline 75mg daily hydroxyzine 2mg QID PRN for anxiety Starting [facility] 08/09 (intake this afternoon) Presents as anxious, reporting she is motivated to make changes looking forward to IOP unsure when or if she will be returning to work Review of Systems Const Reports as per HPI GI Denies loose stools and Denies nausea Psych Reports anxiety and Reports anhedonia Physical Exam Const General: cooperative, anxious and well groomed Nutritional Appearance: average body habitus Orientation/consciousness: patient oriented x3 Limitations: no limitations Neuro General: patient oriented x3 Psych Appearance: well kempt Speech and movement: Normal speech and movement present Affect: Anxious affect present Attitude: cooperative Thought process: Circumstantial thought process present Thought content: Normal thought content present Insight: Fair insight present (Psych) Judgement: Good judgement present (Psych) [facility] Medical History Fractured nose ETOH abuse Alcohol abuse Anxiety and depression Aftercare following left shoulder joint replacement surgery Surgical History History of shoulder surgery Family History Father Bladder cancer Lung cancer Eye cancer Mother HTN (hypertension) Sister No problems noted. Son No problems noted. Daughter No problems noted. Maternal Grandmother HTN (hypertension) Paternal Grandfather No problems noted. Maternal Grandfather No problems noted. Paternal Grandmother No problems noted. 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
--- OUTSIDE RECORDS SUMMARY | 2024-08-08 11:05 | XMS_ITS | Continuity of Care Document ---
Author Organization [facility] ter Address [address] [place] [id number]- Care Team Providers Care Oracle Database Architect Name Role Phone Tran ALEXIS, Jadyen Terrazas Primary Care Physician [phone] Encounter [facility] ACCT R [id number] Date(s): 07/26/24 - 07/29/[address] [address]- Encounter Diagnosis Alcohol withdrawal(Final) - 07/27/24 Alcohol withdrawal(Final) - 07/28/24 Discharge Disposition: A-D/C Home Attending Physician: Reagan Salmon MD Admitting Physician: Bailey Bo MD Referring Physician: Not on Staff, Referring MD Encounter Type: Disch IP Allergies, Adverse Reactions, Alerts Substance Criticality Severity Reaction Reaction Severity Status ciprofloxacin SWELLING, HIVES Active sulfADIAZINE SWELLING, HIVES A ctive Augmentin hives Active Immunizations Given and Recorded Vaccine Date Status Refusal Reason tetanus/diphtheria/pertussis, acel(Tdap) 03/05/11 Given Medications Acetaminophen Tablet 650 mg, Tablet, By Mouth, Every 8 hours, PRN for Pain , Mild, Temperature Greater than 100.5, Routine, 07/26/24 10:19:00 PM EST Start Date: 07/26/24 Stop Date: 07/29/24 Status: Discontinued Repeat number: 1 clonazePAM 0.5 mg oral tablet TAKE ONE TABLET BY MOUTH TWICE A DAY NEEDED FOR ANXIETY Start Date: 09/21/22 Status: Ordered Repeat number: 1 hydrOXYzine hydrochloride 25 mg oral tablet 1 tablet = 25 mg, By Mouth, 4 times a day, PRN for anxiety, # 40 tablet, 1 Refills, Maintenance, 07/29/24 9:52:00 AM EDT, Tablet, [facility], Partial fill upon patient request if the prescription is for a schedule II opioid drug., 159, cm, 07/29/24 7:57:00 EDT, Height, 62.8, kg, 07/27/24 1:51:00 EST, Dry Weight Start Date: 07/29/24 Status: Ordered Quantity: 40.0 Unit: tablet Repeat number: 2 omeprazole 40 mg oral enteric coated capsule [...] Quantity: 90.0 Unit: each Repeat number: 1 sertraline 25 mg oral [...] Exam Date Time Procedure Performing Provider Status 07/28/24 3:09 PM US Liver Melissa Mueller (Verified) Notes: (US Liver) Reason For Exam: ETOH Abuse RESULT: US Liver US Liver Reason: ETOH Abuse; Clinical Question(s): Cirrhosis COMPARISON: Complete abdominal ultrasound dated 06/13/2009. IMAGING TECHNIQUE: Grayscale and color Doppler ultrasound examination of the liver. FINDINGS: Liver: Coarse hepatic echotexture and echogenic parenchyma. No suspicious lesion. Nodular hepatic contour. Main portal vein patent with normal hepatopetal direction of flow. Biliary Tree: No intrahepatic or extrahepatic bile duct dilation is identified. Common duct: 0.7 cm. IMPRESSION: Cirrhotic morphology. No suspicious lesion. WSN: [id number] Ordering Physician: Rhona Corona Dictated By: Karely Leiva MD Dictated Date/Time: 07/28/24 3:40 pm Reviewed By: Karely Leiva MD Signed By: Karely Leiva MD Signed Date/Time: 07/28/24 3:40 pm Transcribed By: NATALIE Transcribed Date/Time: 07/28/24 3:38 pm * Exam Date Time Procedure Performing Provider Status 07/27/24 3:40 PM Ribs Bilat 3 Views Rhona Vivas; Au th (Verified) Notes: (Ribs Bilat 3 Views) Reason For Exam: fall/trauma;Pain RESULT: Ribs Bilat 3 Views PA chest and bilateral RIBS 3 views dated August 06, 2024. Comparison films are from November 17, 2022. HISTORY: Pain. FINDINGS: The cardiac silhouette is within normal limits for size. Mural calcifications are noted in the aorta. There are old healed rib fractures bilaterally. There is an old healed clavicular fracture on the left. No airspace infiltrate or pleural effusion is identified. Degenerative changes are noted in the spine. IMPRESSION: No evidence of acute pulmonary disease. Old healed rib fractures bilaterally. Examination [address]. Thank you for allowing me to participate in the care of this patient. WSN: [id number] Ordering Physician: Rhona Corona Dictated By: Titi Villalobos MD Dictated Date/Time: 07/27/24 5:41 pm Reviewed By: Titi Villalobos MD Signed By: Titi Villalobos MD Signed Date/Time: 07/27/24 5:41 pm Transcribed By: NATALIE Transcribed Date/Time: 07/27/24 5:39 pm * Exam Date Time Procedure Performing Provider Status 07/27/24 1:[address] Head/Brain W/O Contrast Waldemar Reyez; Auth (Verified) Notes: (CT Head/Brain W/O Contrast) Reason For Exam: Confusion with alcohol intoxication;Other: RESULT: CT Head/Brain W/O Contrast CT Head/Brain W/O Contrast INDICATION: Reason: Other:; Confusion with alcohol intoxication; Clinical Question(s): Hematoma; Order Comment: TECHNIQUE: Noncontrast head CT using axial technique and reconstructed in axial and coronal planes.Iterative reconstruction techniques are used to optimize dose and image quality. COMPARISON: CT head without contrast 06/01/2024 FINDINGS: Mechanical Laboratory Technician view findings, lines and tubes: None. BRAIN AND EXTRA-AXIAL SPACES: No parenchymal hemorrhage, midline shift, or mass effect. Stone-white matter differentiation is wellpreserved. No acute infarct. Negative insular ribbon and hyperdense vessel signs. Ventricles, sulci, and basilar cisterns are normal. No white matter lesions. No subarachnoid hemorrhage. No subdural or epidural collection. CALVARIUM, SKULL BASE, AND SOFT TISSUES: No fractures or suspicious bony lesions. The paranasal sinuses and mastoid air cells are clear. Visualized orbits and globes are intact. The extracranial soft tissues are unremarkable. IMPRESSION: No acute intracranial pathology. WSN: [id number] Ordering Physician: Lc Romero Dictated By: Keshawn Vargas MD Dictated Date/Time: 07/27/24 7:41 am Reviewed By: Keshawn Vargas MD Signed By: Keshawn Vargas MD Signed Date/Time: 07/27/24 7:41 am Transcribed By: NATALIE Transcribed Date/Time: 07/27/24 7:39 am Vital Signs Most recent to oldest [Reference Range]: 1 2 3 Height 159 cm (07/29/24 7:57 AM) 159 cm (07/28/24 11:43 PM) 159 cm (07/28/24 8:39 PM) Weight 62.8 kg (07/27/24 1:51 AM) 63 kg (07/27/24 1:16 AM) 63 kg (07/26/24 11:23 PM) Oxygen Saturation [94-100 %] 99 % (07/29/24 7:57 AM) 95 % (07/28/24 11:43 PM) 99 % (07/28/24 8:39 PM) Pulse Rate [55-90 bpm] 78 bpm (07/29/24 7:57 AM) 78 bpm (07/28/24 11:43 PM) 86 bpm (07/28/24 8:39 PM) Body Mass Index [18.5-24.99 kg/m2] 24.84 kg/m2 (07/27/24 1:51 AM) Blood Pressure [90-138/55-84 mm Hg] 123/83mm Hg (07/29/24 7:57 AM) 113/78mm Hg (07/28/24 11:43 PM) 115/68mm Hg (07/28/24 8:39 PM) Respiratory Rate [16-30 br/min] 18 br/min (07/29/24 7:57 AM) 18 br/min (07/29/24 4:51 AM) 18 br/min (07/28/24 11:43 PM) Temperature [96.8-100.4 DegF] 97.6 DegF (07/29/24 7:57 AM) 98.2 DegF (07/28/24 11:43 PM) 98.1 DegF (07/28/24 8:39 PM) Mode of Delivery (Oxygen) Room air (07/29/24 7:57 AM) Room air (07/28/24 11:43 PM) Room air (07/28/24 8:39 PM) Blood pressure sites Arm, left (07/29/24 7:57 AM) Arm, right (07/28/24 11:43 PM) Arm, right (07/28/24 8:39 PM) Temperature Route Oral (07/29/24 7:57 AM) Oral (07/28/24 11:43 PM) Oral (07/28/24 8:39 PM) Dry Weight 62.8 kg (07/27/24 1:51 AM) Weight Obtained Via Bed scale (07/27/24 1:51 AM) Dry Weight Obtained Via Bed scale (07/27/24 1:51 AM) Social History Social History Type Response Sex Female Sex Representation Female (finding) History and physical note * Lc Romero MD: PERFORM, MODIFY, MODIFY Event Display: History and Physical Hospital Authored Date: [id number] Patient: ??OSVALDO WALSH ? Age:??59 Years?Sex:??Female?:??1965?? Chief Complaint/Reason for Consultation from home, cc of ETOH withdrawal s/s, last drink is this lila, unable to state how much she drinks a day. Vomitting x couple of hours, dark/blood tinged. History of Present Illness ?? 59-year-old female with a past medical history of alcohol abuse, alcohol withdrawal related seizure, hypertension, hyperlipidemia, depression, anxiety, GERD who came with a complaint of symptom suggestive of alcohol withdrawal.?? She was drinking alcohol very heavily from last couple of days up to 20 nips of hard liquor.?? He started to have some nausea and unable to tolerate more intake of alcohol and was feeling anxious/jittery.?? Last alcohol intake was in the morning time.?? She also had a complaint of nausea and couple of episode of vomiting with some trace amount of blood.-Unable to confirm all the information from the patient.?? In the ED she is found to have high anion gap with high lactate level, transaminitis.?? Potassium was low that was replaced.?? Alcohol level was 100.?? Sherequired multiple doses of phenobarbitone because of symptoms of severe alcohol withdrawal.?? ED team talked with ICU team and she is admitted to the [facility]. ?? During my examination she was sleepy and tired.?? Unable to get any reliable information from the patient.?? She had a swelling of the lips unable to tell me what happened.?? She was unable to tell me whether she had a tongue bite or incontinence of urine.?? She was alert awake oriented but somewhat confused. Review of Systems She denied any fever, headache, double vision, blurred vision, neck pain.?? Complaint of nausea, vomiting, poor oral intake. All other review of system are obtained from the patient and are negative for except as mentioned above. Objective Vital Signs?? Temperature: 98.8 DegF (07/27/24 01:16:00) Temperature Route: Oral (07/27/24:16:00) Pulse Rate: 62 bpm (07/27/24:16:00) Respiratory Rate: 17 br/min (07/27/24:16:00) Systolic Blood Pressure: 115 mm Hg (07/27/24:16:00) Diastolic Blood Pressure: 65 mm Hg (07/27/24:16:00) Blood pressure sites: Arm, right (07/27/24:16:00) Mean Arterial Pressure: 82 mm Hg (07/27/24:16:00) Pulse Pressure: 50 mm Hg (07/27/24:16:00) Oxygen Saturation:??92 %??Low (07/27/24:16:00) Mode of Delivery (Oxygen): Room air (07/27/24:16:00) Early Warning Score: 8 (07/27/24 01:17:03) ? Physical Exam General Appearance: Moderately nourished, not in any apparent distress, alert, awake and oriented x2???3?? Skin: No rash.?? Warm, dry, pink, no pallor, intact.?? Patient have multiple??ecchymosis of the skin??due to the previous fall. Eye:?? Normal conjunctiva. HEENT: No JVP.?? Moist mucous membrane.?? Lower lip swelling. Heart:?? S1, S2.?? No murmurs.? Respiratory:?? Clear to auscultation, no rhonchi, no wheezing, no crackles. GI:?? Abdomen is soft, mild epigastric tenderness, nondistended.?? Bowel sounds are positive.?? No organomegaly Neurologic: Unable to do the complete neuro examination because of lack of cooperation from the patient. Extremities:?? No calf tenderness, no clubbing, no edema. Psychiatric unable to evaluate because of sleepiness. Musculoskeletal: Moving all extremities. Lymphatic system: No cervical lymphadenopathy. Assessment/Plan ?? 59-year-old female with a past medical history of alcohol abuse, alcohol withdrawal related seizure, hypertension, hyperlipidemia, depression, anxiety, GERD who came with a complaint of symptom suggestive of alcohol withdrawal.?? Unfortunately I was unable to get any reliable information from the patient.?? There was a concern of some blood tinged vomiting.?? In the ED on lab workup she is found to have significant high lactate level with transaminitis, hypokalemia and required multiple doses of phenobarbital for alcohol withdrawal. ?? Alcohol withdrawal (F10.939):??-?? Alcohol withdrawal seizure (F10.939):??-?? ALCOHOL ABUSE (F10.10):??-?? Abnormal transaminases (R74.8):??- Alcoholic cirrhosis of liver (K70.30): Most likely patient's symptoms are due to alcohol withdrawal.?? Lactate level was very high. ??She was kind of confused. ??It could be a possibility of alcohol withdrawal related seizure.?? Will haveseizure precautions and will give Ativan as needed. ??Will continue with the CIWA score, thiamine, folic acid, Ativan as needed.?? If needed we will give additional doses of phenobarbital along with Ativan. ??Will get a addiction medicine consult. ??Patient have a transaminitis??due to??alcohol abuse.?? Will have seizure precautions.?? As the patient is confused??we will get a CT of the head??to rule out any intracranial hemorrhage.?? No spine tenderness. ?? Hypokalemia: Due to alcohol abuse/poor oral intake. ??Potassium was replaced. ??Will continue to follow??the electrolytes closely and will replete as needed. ?? Anxiety (F41.9):??-?? Depression (F32.9):??- Unable to confirm her medication. ??When she will be more sober??we will confirm her medications and will order as needed. ?? Hematemesis? GERD (gastroesophageal reflux disease) (K21.9):??-?? Nausea & vomiting (R11.2):??-?? Gastritis (K29.70):??- There was a concern of??blood-tinged??vomit??that she denied during my examination.?? Will continuewith??IV PPI and will continue to trend H/H. ??I am expecting some drop in hematocrit after??rigorous hydration. ?? VTE Prophylaxis:??- ? Because of concern of hematemesis??we will hold chemical prophylaxis. Discharge Planning:??- To home/detoxification center??after treatment of alcohol withdrawal. Ongoing Medical Necessity:??- Active treatment of alcohol withdrawal Code Status:??- Full code. Disclaimer: ??This note ??was accomplished with use of [employer] voice recognition software, which is prone to medical and other word misidentifications and grammatical errors. ??The physician does strive to identify and correct these, but some could still be present. ??Please do not hesitate to contact the physician for clarifications. ??I will continue to take care of this patient till 7 AM of theadmitting date. ? Histories Allergies Allergies ?(Active and Proposed Allergies Only) Augmentin? (Severity: Unknown severity, Onset: Unknown) ?Reactions: hives ciprofloxacin? (Severity: Unknown severity, Onset: Unknown) ?Reactions: SWELLING, HIVES sulfADIAZINE? (Severity: Unknown severity, Onset: Unknown) ?Reactions: SWELLING, HIVES ? Past Medical History/Problem List Active Problems(8) ALCOHOL ABUSE Alcoholic cirrhosis of liver Anxiety Depression GERD (gastroesophageal reflux disease) Hyperlipidemia HYPERTENSION Pancytopenia ? Social History Alcohol Details:??Use: Current. ??Frequency: Daily. ??Type: Liquor. Substance Abuse Details:??Use: Current. ??Type: Marijuana. History of smoking unable to quantify. Family History No history of seizure in the family. ??History of alcoholism in the family. ?? Medications Home Medications She was unable to tell me what of the medications she is taking.?? As per the outside medical records she is on following medications. Cholecalciferol (Vitamin D3 2000 intl units oral tablet)??TAKE ONE TABLET BY MOUTH EVERY DAY Clonazepam (clonazePAM 0.5 mg oral tablet)??TAKE ONE TABLET BY MOUTH TWICE A DAY NEEDED FOR ANXIETY Omeprazole (omeprazole 40 mg oral enteric coated capsule)??40 Milligram By Mouth Daily Sertraline (sertraline 25 mg oral tablet)??75 Milligram By Mouth Daily for 30 Days ? Results Recent Labs BLOOD COUNT & DIFF WBC 6.5 k/mm3 ()?? 07/26/2024 14:14 RBC 3.64 m/mm3 (Low)?? 07/26/2024 14:14 Hgb 10.8 Gm/dL (Low)?? 07/26/2024 14:14 Hct 31.6 % (Low)?? 07/26/2024 14:14 MCV 86.8 femtoliters ()?? 07/26/2024 14:14 MCH 29.7 pg ()?? 07/26/2024 14:14 MCHC 34.2 Gm/dL ()?? 07/26/2024 14:14 Platelet Count 64 k/mm3 (Low)?? 07/26/2024 14:14 RDW-SD 46.5 femtoliters ()?? 07/26/2024 14:14 MPV 10.2 femtoliters ()?? 07/26/2024 14:14 Nucleated RBC (Automated) 0.0 #/100 WBC'S ()?? 07/26/2024 14:14 Abs. NRBC 0.0 k/mm3 ()?? 07/26/2024 14:14 Abs. Neut 5.6 k/mm3 ()?? 07/26/2024 14:14 Abs. Lymph 0.4 k/mm3 (Low)?? 07/26/2024 14:14 Abs. Kern 0.4 k/mm3 ()?? 07/26/2024 14:14 Abs. Eo 0.0 k/mm3 ()?? 07/26/2024 14:14 Abs. Baso 0.0 k/mm3 ()?? 07/26/2024 14:14 Neut % 86.4 % (High)?? 07/26/2024 14:14 Lymph % 6.8 % (Low)?? 07/26/2024 14:14 Kern % 5.7 % ()?? 07/26/2024 14:14 Eos % 0.3 % ()?? 07/26/2024 14:14 Baso % 0.2 % ()?? 07/26/2024 14:14 Imm Gran 0.6 % ()?? 07/26/2024 14:14 Abs. Imm Gran 0.0 k/mm3 ()?? 07/26/2024 14:14 ?? CHEM GENERAL Sodium 140 mmol/L ()?? 07/26/2024 23:16 Potassium 3.6 mmol/L ()?? 07/26/2024 23:16 Chloride 99 mmol/L ()?? 07/26/2024 23:16 Bicarbonate Level 20 mmol/L (Low)?? 07/26/2024 23:16 Anion Gap 21 mmol/L (High)?? 07/26/2024 23:16 Glucose Level 130 mg/dL (High)?? 07/26/2024 14:14 BUN 12 mg/dL ()?? 07/26/2024 14:14 Creatinine-Blood 0.62 mg/dL ()?? 07/26/2024 14:14 Estimated GFR Creatinine 103 ML/MIN/1.73 M2 ()?? 07/26/2024 14:14 Calcium 9.5 mg/dL ()?? 07/26/2024 14:14 Magnesium 2.0 mg/dL ()?? 07/26/2024 23:16 Protein, Total 7.3 Gm/dL ()?? 07/26/2024 14:14 Albumin 4.7 Gm/dL ()?? 07/26/2024 14:14 AG Ratio 1.8 ()?? 07/26/2024 14:14 Alkaline Phosphatase 150 units/L (High)?? 07/26/2024 14:14 Lipase, Serum/Plasma 18 units/L ()?? 07/26/2024 14:14 AST (SGOT) 79 units/L (High)?? 07/26/2024 14:14 ALT (SGPT) 40 units/L (High)?? 07/26/2024 14:14 Bilirubin, Total 1.8 mg/dL (High)?? 07/26/2024 14:14 Lactate 1.3 mmol/L ()?? 07/26/2024 23:16 ?? ENDOCRINE/TUMOR MARKER TSH 0.08 uIU/mL (Low)?? 07/26/2024 14:14 Free T4 1.63 ng/dL ()?? 07/26/2024 14:14 ?? MISC. CHEMISTRY Hold Green Top SPECIMEN DISCARDED AFTER 1 WEEK ()?? 07/26/2024 16:50 ?? TOXICOLOGY/TDM Ethanol, Serum or Plasma 100 mg/dL (Abnormal)?? 07/26/2024 14:14 ? EKG study * Event Display: ECG 12-Lead Authored Date: [id number] Please click on pdf link to open report * Event Display: ECG 12-Lead Authored Date: [id number] Ventricular Rate: 92 BPM Atrial Rate: 92 BPM P-R Interval: 134 ms QRS Duration: 78 ms Q-T Interval: 422 ms QTC Calculation(Bazett): 521 ms P Williston: -21 degrees R Williston: 52 degrees T Williston: 53 degrees Normal sinus rhythm Prolonged QT Abnormal ECG When compared with ECG of 01-Jun-2024 14:55, QT has lengthened Confirmed by Johnny Roman ([id number]) on 07/26/2024 2:56:16 PM [place]: Johnny Roman Cardiology * Event Display: Cardiac Rhythm Strips Authored Date: Hospital Progress note * Leonila Pritchett RN: VERIFY, PERFORM, SIGN Event Display: Progress Note Hospital Authored Date: [id number] Patient: OSVALDO WALSH Age: 59 years Sex: Female : 1965 Associated Diagnoses: None Author: Leonila Pritchett RN Findings Problem Related to Alteration in Psychosocial : Alteration in Psychosocial Function/new 07/28/2024 17:00 EST Alteration in Psychosocial Related to Acute Alcohol Withdrawal Goals & Outcomes, Psychosocial Psychosocial support will be provided to Pt/S.O. as needed, Pt/caregiver will express feelings/needs/fears /concerns, Pt will demonstrate ability for self care, Pt successfully withdraws with minimal side effects, Pt will be free from withdrawal symptoms, Pt will detoxify from substance Interventions, Psychosocial Assess psychosocial needs, Assess readiness to learn needed lifestyle changes, Assess/monitor level of consciousness, Collaborate with provider for psychiatric consult, Evaluate resources & support system available to pt, Offer support; discuss coping strategies, Provide a calm, supportive environment, Provide chances to express concerns/emotions/expectations, Provide info on community resources for education, support, Provide information about illness and recovery, Identify complications of chronic alcohol use, Assess for complications related to acute alcoholwithdrawal, Determine pt's stage of withdrawal as per CIWA scale, Encourage pt to continue to detox, Initiate & maintain Seizure Precautions, Minimize stimulation, Minimize stressors, Offer clergy, AA sponsor, counselor support Goals/Interventions, Psychosocial Yes Psychosocial, Problem Start 07/27/2024 3:28 Reviewed Plan with, Psychosocial Patient Patient Progression, Psychosocial Pt progressing according to plan . Nursing Data Vital Signs : VITAL SIGNS SECTION 07/28/2024 17:56 EST Early Warning Score 6.00 07/28/2024 17:56 EST Temperature 97.4 DegF Temperature Route Oral Pulse Rate 89 bpm Respiratory Rate 18 br/min Systolic Blood Pressure 131 mm Hg Diastolic Blood Pressure 85 mm Hg H Blood pressure sites Arm, left Mean Arterial Pressure 100 mm Hg Pulse Pressure 46 mm Hg Oxygen Saturation 100 % Mode of Delivery (Oxygen) Room air 07/28/2024 8:47 EST Early Warning Score 6.00 07/28/2024 8:01 EST Early Warning Score 6.00 07/28/2024 8:01 EST Temperature 97.7 DegF Temperature Route Oral Pulse Rate 80 bpm Respiratory Rate 18 br/min Systolic Blood Pressure 122 mm Hg Diastolic Blood Pressure 85 mm Hg H Blood pressure sites Arm, right Mean Arterial Pressure 97 mm Hg Pulse Pressure 37 mm Hg Oxygen Saturation 98 % Mode of Delivery (Oxygen) Room air . Evaluation Pt. alert and oriented X4. No SOB, reports left thoracic pain 12/30, notified, administered tramadol with good effect. Pt. complains of anxiety, administered hydroxyzine X2 with good effect. Ambulates independently. VSS. Last BM 07/27, voiding in bathroom. Pt. resting comfortably in bed, call churchill within reach and bed in lowest position. Plan of care ongoing.. * Kt NATARAJAN, Ashely Hendrix: PERFORM Event Display: Progress Note Hospital Authored Date: [id number] Patient: ??JILLIAN, OSVALDO ? Age:??59 Years?Sex:??Female?:??1965?? Subjective Admit??bedside this morning She is quite tearful and anxious,??feeling the ups and downs of withdrawal??including??sweats, chills, tremors She is focused on getting better,??looking forward to sobriety ?? Review of Systems A full review of systems was completed and is otherwise negative except as mentioned in history of present illness. Objective ?? Physical Exam Temperature?97.7 ?(08:01) Systolic Blood Pressure?122 ?(08:01) Diastolic Blood Pressure?85 ?(08:01) Pulse?80 ?(08:01) SpO2?98 ?(08:01) Respiratory Rate?18 ?(08:47) ? General: Alert, NAD. HEENT: Normocephalic. Respiratory: Clear to auscultation. No wheezing, rales or rhonchi. Cardiovascular: RRR. No murmurs, rubs or gallops. Gastrointestinal: ??non-tender, soft, non-distended. + bowel sounds. Neurologic: Moves all extremities spontaneously. Skin: No rashes or lesions.?? Scattered ecchymosis to??forehead, bilateral arms MSK / Extremities: No cyanosis or clubbing. No gross deformities. Normal range of motion. Psychiatric: appropriate mood / affect to situation Assessment/Plan Assessment:??OSVALDO WALSH is a 59 yo F with PMHx HLD, GERD, Depression/anxiety, alcohol use disorder with hx etoh withdrawal syndrome who is admitted to [facility] with??alcohol withdrawal syndrome. ?? Alcohol withdrawal syndrome??(F10.939) Alcohol use disorder??(F10.10) CIWA with phenobarb protocol Seizure precautions, MVI, folic acid, thiamine Liver US to eval for ??? Cirrhosis IM naltrexone 380 mg x 1 before DC ?? CHRONIC MEDICAL CONDITIONS: GERD (gastroesophageal reflux disease) ??(K21.9): PPI HLD (hyperlipidemia) (E78 .5): Statin on hold given LFTs Depression??(F32.9) / Anxiety??(F41.9):??Sertraline Pancytopenia (D61.818): Likely secondary to underlying EtOH/liver disease.?? No sign of acute bleed.?? Follow-up PCP ? Code: Full? Diet: Regular? DVT PPX: Ambulatory? Access: PIV DISPO : TBD, next 1-2 days pending CIWA ?? I spent a total of 44 minutes today reviewing the chart/medical records, speaking with the patient,formulating and discussing the treatment plan and documenting the findings and encounter. This note was completed via Dragon Dictation. Please do not hesitate to contact the author for clarification of any unintentional error should it be needed. ? * Leonila Pritchett RN: PERFORM, SIGN, VERIFY Event Display: Progress Note Hospital Authored Date: [id number] Patient: OSVALDO WALSH Age: 59 years Sex: Female : 1965 Associated Diagnoses: None Author: Leonila Pritchett RN Findings Problem Related to Alteration in Psychosocial : Alteration in Psychosocial Function/new 07/27/2024 18:00 EST Alteration in Psychosocial Related to Acute Alcohol Withdrawal Goals & Outcomes, Psychosocial Psychosocial support will be provided to Pt/S.O. as needed, Pt/caregiver will express feelings/needs/fears /concerns, Pt will demonstrate ability for self care, Pt successfully withdraws with minimal side effects, Pt will be free from withdrawal symptoms, Pt will detoxify from substance Interventions, Psychosocial Assess psychosocial needs, Assess readiness to learn needed lifestyle changes, Assess/monitor level of consciousness, Collaborate with provider for psychiatric consult, Evaluate resources & support system available to pt, Offer support; discuss coping strategies, Provide a calm, supportive environment, Provide chances to express concerns/emotions/expectations, Provide info on community resources for education, support, Provide information about illness and recovery, Provide verbal limits if pt's behavior escalates BH Goals/Interventions, Psychosocial Yes Psychosocial, Problem Start 07/27/2024 3:28 Reviewed Plan with, Psychosocial Patient Patient Progression, Psychosocial Pt progressing according to plan . Nursing Data Vital Signs : VITAL SIGNS SECTION 07/27/2024 17:32 EST Early Warning Score 6.00 07/27/2024 17:29 EST Temperature 98.1 DegF Temperature Route Oral Pulse Rate 71 bpm Respiratory Rate 18 br/min Systolic Blood Pressure 120 mm Hg Diastolic Blood Pressure 85 mm Hg H Blood pressure sites Arm, left Mean Arterial Pressure 97 mm Hg Pulse Pressure 35 mm Hg Oxygen Saturation 100 % Mode of Delivery (Oxygen) Room air 07/27/2024 17:28 EST Early Warning Score 8.00 07/27/2024 16:57 EST Early Warning Score 8.00 07/27/2024 16:57 EST Early Warning Score 8.00 07/27/2024 16:56 EST Temperature 97.9 DegF Temperature Route Oral 07/27/2024 16:41 EST Early Warning Score 6.00 07/27/2024 14:00 EST Heart Rate Monitored 77 bpm Respiratory Rate 17 br/min Oxygen Saturation 96 % 07/27/2024 14:00 EST Temperature 97.9 DegF Temperature Route Oral Systolic Blood Pressure 107 mm Hg Diastolic Blood Pressure 64 mm Hg Pulse Pressure 43 mm Hg 07/27/2024 13:55 EST Early Warning Score 6.00 07/27/2024 13:53 EST Early Warning Score 8.00 07/27/2024 13:53 EST Pulse Rate 73 bpm Respiratory Rate 20 br/min Systolic Blood Pressure 102 mm Hg Diastolic Blood Pressure 60 mm Hg 07/27/2024 13:00 EST Heart Rate Monitored 96 bpm H Respiratory Rate 24 br/min Oxygen Saturation 99 % 07/27/2024 12:08 EST Early Warning Score 6.00 07/27/2024 12:07 EST Early Warning Score 8.00 07/27/2024 12:07 EST Oxygen Saturation 99 % 07/27/2024 12:07 EST Temperature 98.3 DegF Temperature Route Oral Pulse Rate 94 bpm H Blood pressure sites Arm, right Mode of Delivery (Oxygen) Room air 07/27/2024 12:06 EST Respiratory Rate 20 br/min 07/27/2024 12:00 EST Systolic Blood Pressure 102 mm Hg Diastolic Blood Pressure 60 mm Hg Pulse Pressure 42 mm Hg 07/27/2024 11:58 EST Oxygen Saturation 94 % 07/27/2024 11:36 EST Early Warning Score 6.00 07/27/2024 11:00 EST Oxygen Saturation 100 % 07/27/2024 10:20 EST Early Warning Score 9.00 07/27/2024 10:17 EST Pulse Rate 92 bpm H Respiratory Rate 18 br/min Systolic Blood Pressure 113 mm Hg Diastolic Blood Pressure 76 mm Hg 07/27/2024 10:05 EST Early Warning Score 11.00 C 07/27/2024 10:00 EST Heart Rate Monitored 85 bpm Respiratory Rate 21 br/min Oxygen Saturation 87 % L 07/27/2024 10:00 EST Systolic Blood Pressure 113 mm Hg Diastolic Blood Pressure 76 mm Hg Pulse Pressure 37 mm Hg 07/27/2024 9:00 EST Oxygen Saturation 99 % 07/27/2024 8:19 EST Early Warning Score 9.00 07/27/2024 8:19 EST Temperature 98.1 DegF Temperature Route Oral Pulse Rate 82 bpm Blood pressure sites Arm, right Mode of Delivery (Oxygen) Room air . Evaluation Pt. alert and oriented X4. Reports abdominal rib pain from recent fall, administered tylenol. Pt. has anxiety, requesting medication, did not score on CIWA for appropriate administration. notifiedof anxiety. VSS. Last BM 07/27, voiding in toilet. Ambulates with standby assist. Pt. resting comfortably in bed, call churchill within reach and bed in lowest position. Plan of care ongoing.. Consult note * Loyda BROWN, Brock Terrazas: MODIFY Event Display: Consultation Note Authored Date: [id number] CONSULTATION DATE: 07/27/2024 INPATIENT ADDICTION CONSULTATION REASON FOR CONSULTATION: Advice regarding alcohol use disorder. We were asked to see this patient by Dr. Rhona Noe for advice regarding the above. The patient's chart was reviewed in detail, and the patient was seen and interviewed in her room on[facility] 6[facility] today by me at 11:05 a.m. CHIEF COMPLAINT: Alcohol withdrawal syndrome and vomiting blood. She also had a fall. HISTORY OF PRESENT ILLNESS: The patient is a 59-year-old woman with known and active and ongoing alcohol use disorder, who came in with the above complaints. She is now recuperating and being treatedfor alcohol withdrawal and she is trying to get back on track with alcohol use disorder treatment. As it turns out, I did see this patient just about a year ago on 07/25/[address] Kiera Sims. At that point, recommendations were for her to follow up with some outpatient services she already had in place and to start some oral naltrexone. She has followed up with some of the providers, but never did take the naltrexone. She has been drinking quite heavily over the last year. PAST MEDICAL HISTORY: As follows: 1. Alcohol use disorder, see below. 2. History of alcohol withdrawal syndrome. 3. History of alcohol withdrawal syndrome induced seizures. 4. Hypertension. 5. Hyperlipidemia. 6. Depression. 7. Anxiety. 8. GERD. 9. Cirrhosis. 10. Pancytopenia. 11. History of prescribed benzodiazepines, clonazepam 0.5 mg b.i.d. PAST SURGICAL HISTORY: None. MEDICATIONS: Now here in the hospital include the followin. Lorazepam p.r.n. 2. Folic acid 1 mg daily. 3. Bowel regimen p.r.n. 4. Multivitamin with minerals daily. 5. Thiamine 100 mg b.i.d. 6. Melatonin 3 mg 1 p.o. at bedtime p.r.n. for sleep. 7. Pyridoxine 50 mg daily. 8. Pantoprazole 40 mg IV q.12 hours. 9. Tylenol p.r.n. ALLERGIES TO MEDICATIONS: Include the following: AUGMENTIN CAUSES HIVES. CIPROFLOXACIN CAUSES SWELLING AND HIVES. SULFADIAZINE CAUSES SWELLING AND HIVES. FAMILY HISTORY: Apparently, there is a history of alcohol use disorder. 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 I am not sure that she is working now. Alcohol use: Longstanding problems with alcohol use disorder. This has escalated dramatically over the last year. She said she had been drinking only maybe 5 or 6 nips per day, but now she is well upcloser to 20. She is not taking the naltrexone. She has not really followed up as closely with her providers as she should, however, she does have a men's swim coach that she says she is in touch with at least weekly. She also has a mental health counselor that is helping with some of her other issues. The patient uses marijuana, but it is very minimal, usually just a part of a joint or few puffs in the evening hours. She gets it from a dispensary. It is not interfering with anything else in her life. No other drug use whatsoever. No opioids, cocaine or other drugs. On this admission so far, she has been found to have high anion gap metabolic acidosis, abnormal LFTs, hypokalemia, high lactate. She has been worked up and treated for all the above. REVIEW OF SYSTEMS: Right now is positive just for recuperating from the withdrawal that she is going through. She also has some soreness in her face from a fall. PHYSICAL EXAMINATION: GENERAL: The patient appeared awake, alert, oriented x3, fully cooperative, fully conversant, made good eye contact. Normal mental status, good spirits. VITAL SIGNS: Today show temperature of 98.1, heart rate 82, respiratory rate 100, blood pressure 100/64, O2 sat 97% on room air. CIWA scale numbers today were 11, 9 and then 5 at 5:00 a.m. Yesterday they were as high as 20 and then 17 in the evening hours. At this point, she has no obvious diaphoresis, no obvious gooseflesh. No obvious tremor. Clear sensorium. Moving all 4 extremities well. NEUROLOGIC: Seems to be Grossly intact. Oral mucosa seemed moist. Face does have what appears to janis contusion on her lower lip and she has some ecchymoses around the eyes. SKIN: Is otherwise without diaphoresis and no gooseflesh. MUSCULOSKELETAL: Appears to have normal muscle bulk and tone. PSYCHIATRIC: Normal mood and affect. DATA REVIEW: CT scan of the head was negative. Laboratory studies show a low white count of 3200, H and H is low and lower at 9 and 29, platelet count 69 which is a little better than the 41 yesterday. Potassium a bit low at 3.0. Other electrolytes good. Renal numbers good. Calcium 8.1, phosphorus okay. Albumin just a little low. INR up a bit to 1.3, albumin decent at 3.9. Alcohol level was 100 when she came in. LFTs show an alkaline phosphatase of 123, which is better. SGOT of 60, which is better, SGPT of 31,which is better, bilirubin 1.6, which is better. ASSESSMENT AND PLAN: This is a 59-year-old woman with ongoing and active alcohol use disorder, who has still been refractory to treatments in the past. She would like to get better help and realizes that she has to commit to things if she is going to do any better. At the moment, she already has, she says, a treatment provider. She has a men's swim coach and a mental health counselor, so she does not need any new referrals or help with any of that. She would like to go back on naltrexone. Looking at her LFTs and doing a Child- Dolan score calculation, she comes up as Child-Dolan score class A, so I do not think there is any contraindication to hergetting back on naltrexone. She also does not have any opioids on board that I am aware of. She has been on naltrexone in the past, both pills and injection. She did okay with either of them,but has not committed to reliably taking them since. To make sure she gets it into her system and to stay on it, she decided she would like to take the injection again this time before she gets discharged. She knows she has the options and we discussed the pros and cons. I think this is a reasonable approach. The recommendation therefore would be to give her an intramuscular injection of naltrexone 380 mg on the day of discharge. She can then follow up with her providers for future prescribing. The patient also does attend AA intermittently and she will try to increase the frequency with which she does that. As an aside almost, the patient requested that I reach out to the primary provider hospitalist hereabout starting her back on omeprazole and sertraline which she is on in the community, but had not yet been restarted here. Alcohol withdrawal syndrome with a history of seizures in the past. Obviously that needs to be treated aggressively which is ongoing. Looks like it is going very well. Fairly minimal marijuana use, no action necessary. It is not interfering with anything. She gets itfrom a safe source. Thankfully, she uses no other drugs whatsoever of any type. Thank you very much for this consultation. If you have any further questions, please do not hesitate to ask them. I have communicated my thoughts and recommendations today to Dr. Rhona Noe who is her hospitalist. The addiction consultation service will sign off at this time. Please call if we can be of any further assistance. Dictated by: Brock Scales M.D. Signing Clinician: Brock Scales M.D. Dictated: 07/27/2024 12:55:33 Transcribed: 07:14:33 AM Transcribed by: CHRISTINE DocID: [id number] PRELIMINARY REPORT UNLESS MANUALLY/ELECTRONICALLY SIGNED cc: Rhona Noe M.D. [address], [address] Note * Leonila Pritchett RN: PERFORM Event Display: Discharge/Transfer Note Hospital Authored Date: [id number] Nursing Discharge Note Entered On: 07/29/2024 12:34 EDT Performed On: 07/29/2024 12:34 EDT by Leonila Pritchett RN Nursing Discharge Note 2 Discharge Time : 07/29/2024 12:34 EDT Discharge Level of Care at Discharge : Home/Snf/Foster Care Patient Left Unit Via : Wheelchair Patient Accompanied Off Unit with : Responsible adult DC Instructions Provided & Signed by Pt : Yes Patient Understands D/C Instructions : Yes Patient Instructions Discharge Signed : Yes Did Pt have Specialty Bed or Wound Vac : No Leonila Pritchett RN - 07/29/2024 12:34 EDT * Ashely Martinez: PERFORM Event Display: Discharge/Transfer Note Hospital Authored Date: [id number] Patient: ??DUPLISEA, OSVALDO ? Age:??59 Years?Sex:??Female?:??1965?? Patient Information Discharge Location: Primary Care Physician: Jayden Mayfield NP Admit Date/Time: 07/26/2024 21:49 Discharge Date:??07/29/2024 10:07 Discharge Disposition Discharge Disposition: Home: No Services Discharge Diagnosis Pancytopenia (D61.818) HLD (hyperlipidemia) (E78.5) Alcohol withdrawal (F10.939) Alcohol withdrawal (F10.939) ALCOHOL ABUSE (F10.10) Anxiety (F41.9) Depression (F32.9) GERD (gastroesophageal reflux disease) (K21.9) Nausea & vomiting (R11.2) Gastritis (K29.70) Alcohol withdrawal seizure (F10.939) Abnormal transaminases (R74.8) Generalized anxiety disorder (F41.1) Nausea (R11.2) Alcohol withdrawal (F10.939) Depression (F32.A) Alcohol withdrawal (F10.939) _ Discharge Medications Cholecalciferol (Vitamin D3 2000 intl units oral tablet)??TAKE ONE TABLET BY MOUTH EVERY DAY Clonazepam (clonazePAM 0.5 mg oral tablet)??TAKE ONE TABLET BY MOUTH TWICE A DAY NEEDED FOR ANXIETY HydrOXYzine (hydrOXYzine hydrochloride 25 mg oral tablet)??1 tab(s) 25 Milligram By Mouth 4 times aday as needed for anxiety Omeprazole (omeprazole 40 mg oral enteric coated capsule)??40 Milligram By Mouth Daily Sertraline (sertraline 25 mg oral tablet)??75 Milligram By Mouth Daily for 30 Days ? Medications Started hydroxyzine Medications Discontinued none Doses Changed none Allergies Allergies ?(Active and Proposed Allergies Only) Augmentin? (Severity: Unknown severity, Onset: Unknown) ?Reactions: hives ciprofloxacin? (Severity: Unknown severity, Onset: Unknown) ?Reactions: SWELLING, HIVES sulfADIAZINE? (Severity: Unknown severity, Onset: Unknown) ?Reactions: SWELLING, HIVES ? PCP Follow-Up/Heads-Up etoh withdrawal received naltrexone IM cirrhotic liver morphology - may need outpt GI referral Hospital Course OSVALDO WALSH is a 59 yo F with PMHx HLD, GERD, Depression/anxiety, alcohol use disorder with hx etoh withdrawal syndrome who is admitted to [facility] with alcohol withdrawal syndrome. She improved with phenobarb support. She was agreeable to IM naltrexone x 1 prior to discharge. She will follow-up in the community with her counselors. ?? Her ultrasound of the liver did demonstrate cirrhotic liver morphology. She is aware of this. Encouraged to abstain from drinking. ?? 07/29/2024 VSS. Seen and examined at bedside this AM. Eager for discharge, states that she feels well, nearing baseline. No complaints. Tolerating diet. Denies f/c, dizziness, CP, palpitations, SOB, abdominal pain, constipation, N/V/D. ?? Objective Assessment and Plan ? . Physical Exam Temperature?97.6 ?(07:58) Systolic Blood Pressure?123 ?(07:58) Diastolic Blood Pressure?83 ?(07:58) Pulse?78 ?(07:58) SpO2?99 ?(07:58) Respiratory Rate?18 ?(08:01) ?? General: Alert, NAD. HEENT: Normocephalic.?? Ecchymotic??left orbit Respiratory: Clear to auscultation. No wheezing, rales or rhonchi. Cardiovascular: RRR. No murmurs, rubs or gallops. Gastrointestinal: ??non-tender, soft, non-distended. + bowel sounds. Neurologic: Moves all extremities spontaneously. Skin: No rashes or lesions.?? Scattered ecchymosis to??forehead, bilateral arms MSK / Extremities: No cyanosis or clubbing. No gross deformities. Normal range of motion. Psychiatric: appropriate mood / affect to situation Consultants ADDICTION Pending Results Add On Lab Order ordered on 07/27/2024 Patient Education Titles [employer] Patient Education - Naltrexone Injection?? [employer] Patient Education - Hydroxyzine?? Follow-Up Appointments Added Follow Up ?Time Frame ?Comments Tran ALEXIS , Jayden Terrazas Patient Instructions SUMMARY OF YOUR HOSPITAL STAY: You were admitted to the hospital for alcohol withdrawal syndrome. You improved with supportive measures. Please abstain from??alcohol use. ?? Your ultrasound of the liver did not demonstrate evidence of liver disease.?? You may need to follow-up with GI doctor in the future, this can be referred from your PCP.?? Please abstain from??alcohol use??to slow the damage caused to your liver. ?? FOLLOW UP CARE:?? Please follow-up with your PCP. ??Call them to schedule an appointment time. ?? MEDICATIONS: NEW:? Hydroxyzine This medication can be used as needed for anxiety. ? Naltrexone You received this medication via??injection.?? This is to help??with alcohol. ?? STOP:?? We have not stopped any of your medications.? CHANGED DOSES:?? We have not changed the doses of any of your medications.? WHEN TO RETURN: ? if you need additional detox help ?? It was a pleasure to be involved in your care here at [facility].?? We wish you the best in the future.?? Post Discharge Care Discharge ?07/29/24 10:20:00 EDT ?Order Comment:?? Discharge Prescriptions ?ePrescribed, 07/29/24 10:20:00 EDT ?Order Comment:?? Home Health Face to Face ^HomeHealthFTF 35??minutes spent on discharge * Linette Blanco RN: PERFORM Event Display: Patient Education/Instruction Authored Date: [id number] Inpatient Adult Discharge Instructions. [place] [id number] Name: OSVALDO WALSH : 1965?? Visit: 07/26/2024 21:49?? Current Date: 07/29/2024 11:08 ?? Account: [id number]?? Inpatient Adult Discharge Instructions We would like to thank you for allowing us to assist you with your healthcare needs. The following includes patient education materials and information regarding your injury/illness. Our entire staffstrives to provide an excellent experience for our patients and their families. PLEASE ENSURE YOU FOLLOW-UP PER THE INSTRUCTIONS BELOW! ?? YOUR OPINION IS IMPORTANT TO US! Please complete the survey you may receive by mail or email. Your feedback will be used to make improvements to the healthcare experiences of our patients and their families. Surveys are administered by [employer] ?? If further treatment with your primary care physician or another doctor is recommended, it is important for you to keep the appointment. Call your primary care physician or return to the Emergency Department immediately if your condition worsens, fails to improve, or new symptoms develop. If you need to find a doctor, you can call [facility] Link for a referral at [phone] or toll free at [phone] or log in to [email or web address].. ?? [facility], in keeping with [facility] guidance, no longer requires face masks for staff, patientsor visitors in most situations. Similiar to time spent indoors at other locations, there is the chance that you were exposed to repiratory viruses during your time with us (such as flu or COVID-19). If you develop symptoms concerning for a viral respiratory infection, please seek testing (and treatment if indicated) from your medical provider or home test kit. ?? You can view and manage your care through the patient portal or by using a health care neptali of your choosing. [employer] is a website that allows you to securely view your medical information including your hospital discharge summary, office visit summaries, medications and follow-up visits. You can also request appointments, renew medications, and request access to your medical information using a health care neptali of your choosing, or just ask a question. You are entitled to know the individuals who participated in your treatment. This information is available within your medical record and will be provided upon your request. You can enroll at [email or web address] or register d uring your next office visit. You have been discharged from [facility], Patient Care Unit: W3??. If you have any questions regarding these instructions, including results of studies pending, afteryou leave, please call us and we will be happy to assist you 13/12. [facility] Your Care Team Attending Physician Reagan Salmon MD?? Consulting Providers Reagan Salmon MD?? Discharging Providers Ashely Martinez Reason for Your Visit from home, cc of ETOH withdrawal s/s, last drink is this lila, unable to state how much she drinks a day. Vomitting x couple of hours, dark/blood tinged.?? Your Diagnosis ALCOHOL ABUSE Alcohol withdrawal seizure Anxiety Depression GERD (gastroesophageal reflux disease) Nausea & vomiting Gastritis Abnormal transaminases Generalized anxiety disorder Nausea Alcohol withdrawal Depression HLD (hyperlipidemia) Pancytopenia Tests Performed Below is a partial list of the tests performed during your hospitalization. You may have had other tests and procedures not included in this list. Please discuss all test results with your provider. Basic Metabolic Panel CBC CBC w/ Differential Comprehensive Metabolic Panel Electrolytes Ethanol Level FREE T4 Hepatic Function Panel HOLD GREEN TUBE INR Lactate Level Lipase Magnesium Level Phenobarbital Level PHOSPHORUS PTT TSH with T4 Reflex (Adults Only) Type and Screen CT Head/Brain W/O Contrast Liver (US) Ribs Bilat 3 Views Add On Lab Order?? Basic Metabolic Panel?? CBC?? CBC w/ Differential?? CT Head/Brain W/O Contrast?? Comprehensive Metabolic Panel?? Electrolytes?? Ethanol Level?? Free T4?? Hepatic Function Panel?? Hold Green Top Tube (HOLD GREEN TUBE)?? INR?? Lactic Acid Level (Lactate Level)?? Lipase?? Magnesium Level?? PTT?? Phenobarbital Level?? Phosphorus Level (PHOSPHORUS)?? Ribs Bilat 3 Views?? TSH with T4 Reflex (Adults Only)?? Type and Screen?? US Liver (Liver (US))?? Primary Care Provider Tran ALEXIS , Jayden Terrazas? Advance Directive Health Care Proxy on File Yes - Health Care Proxy Discharge Vitals Temperature: 97.6 DegF Height: 159 cm Pulse Rate: 78 bpm Weight: 62.8 kg Respiratory Rate: 18 br/min Body Mass Index: 24.84 kg/m2 Systolic Blood Pressure: 123 mm Hg Body surface area: 1.67 Diastolic Blood Pressure: 83 mm Hg ?? Oxygen Saturation: 99 % ?? Studies Pending All studies ordered during this hospital stay have been completed unless listed below. Please discuss all pending results with your provider listed above in these instructions. ?? Add On Lab Order?? What to do next Instructions From Your Doctor SUMMARY OF YOUR HOSPITAL STAY: You were admitted to the hospital for alcohol withdrawal syndrome. You improved with supportive measures. Please abstain from??alcohol use. ?? Your ultrasound of the liver did not demonstrate evidence of liver disease.?? You may need to follow-up with GI doctor in the future, this can be referred from your PCP.?? Please abstain from??alcohol use??to slow the damage caused to your liver. ?? FOLLOW UP CARE:?? Please follow-up with your PCP. ??Call them to schedule an appointment time. ?? MEDICATIONS: NEW:? Hydroxyzine This medication can be used as needed for anxiety. ? Naltrexone You received this medication via??injection.?? This is to help??with alcohol. ?? STOP:?? We have not stopped any of your medications.? CHANGED DOSES:?? We have not changed the doses of any of your medications.? WHEN TO RETURN: ? if you need additional detox help ?? It was a pleasure to be involved in your care here at [facility].?? We wish you the best in the future.? Orders? 07/29/24 10:20:00 EDT?? Prescriptions??, ??07/29/24 10:20:00 EDT?? You Need to Schedule the Following Appointments Follow Up with??Tran ALEXIS , Jayden Terrazas Where: [address] [place] [address]- Discharge Medications OSVALDO WALSH :1965 Visit Date:07/26/2024 Medications: Please continue your medications until treatment is completed or stopped by your provider. Medications not listed below should be discontinued. Discuss any questions related to medications with your provider. What How Much When Instructions Next Dose New HydrOXYzine (hydrOXYzine hydrochloride 25 mg oral tablet) 1 tab(s) Oral 4 times a day as needed for for anxiety Refills: 1 Pickup at [facility] 3 when needed Unchanged Cholecalciferol (Vitamin D3 2000 intl units oral tablet) TAKE ONE TABLET BY MOUTH EVERY DAY ?? tomorrow Unchanged Clonazepam (clonazePAM 0.5 mg oral tablet) TAKE ONE TABLET BY MOUTH TWICE A DAY NEEDED FOR ANXIETY ?? tonight if needed Unchanged Omeprazole (omeprazole 40 mg oral enteric coated capsule) 40 Milligram Oral Daily tomorrow Unchanged Sertraline (sertraline 25 mg oral tablet) 75 Milligram Oral Daily Duration: 30 Days tomorrow Pharmacy Information [facility] 3: [address], [place] [id number] [phone] ?? What How Much When Comments Stop Taking Acamprosate (acamprosate 333 mg oral delayed release tablet) 2 tab(s) Oral 3 times a day Duration: 30 Days Stop Taking Fluticasone-Salmeterol (Advair Diskus 100 mcg-50 mcg inhalation powder) 2 puff(s) Inhalation Twice a day Stop Taking Folic Acid (folic acid 1 mg oral tablet) 1 tab(s) Oral Daily Stop Taking Lidocaine Topical (lidocaine topical 2% solution) 5 Milliliter Swish and Spit Every 4 hours as needed for Other Mouth Pain ?? Stop Taking Quetiapine (QUEtiapine 25 mg oral tablet) 1 tab(s) Oral Daily TAKE ONE TABLET BY MOUTH AT BEDTIME ?? Stop Taking Rosuvastatin (rosuvastatin 5 mg oral tablet) 1 tab(s) Oral Daily Prescription Given During Visit HydrOXYzine (hydrOXYzine hydrochloride 25 mg oral tablet) - 1 tablet = 25 mg, By Mouth, 4 times a day, # 40 tablet, 1 Refills, [facility] [address] [place] [id number] [phone]?? Laboratory Results Below is a partial list of the most recent Laboratory test results done prior to this discharge. You may have had other tests and procedures not included in this list. Please discuss all test resultswith your provider. Est Creatinine Clearance - 103.82 mL/min (07/29/2024) Basic Metabolic Panel (07/29/2024) ???Sodium - 132 mmol/L???Potassium - 3.6 mmol/L???Chloride - 100 mmol/L???Bicarbonate Level - 23 mmol/L???Anion Gap - 9 mmol/L???Glucose Level - 113 mg/dL???BUN - 4 mg/dL???Creatinine-Blood - 0.48 mg/dL???Estimated GFR Creatinine - 110 ML/MIN/1.73 M2???Calcium - 8.1 mg/dL CBC (07/29/2024) ???WBC - 3.8 k/mm3???RBC - 3.30 m/mm3???Hgb - 9.8 Gm/dL???Hct - 28.9 %???MCV - 87.6 femtoliters???MCH - 29.7 pg???MCHC - 33.9 Gm/dL???Platelet Count - 41 k/mm3???RDW-SD - 46.0 femtoliters???MPV - 11.6 femtoliters???Nucleated RBC (Automated) - 0.0 #/100 WBC'S???Abs. NRBC - 0.0 k/mm3 CBC w/ Differential (07/28/2024) ???WBC - 4.1 k/mm3???RBC - 3.18 m/mm3???Hgb - 9.4 Gm/dL???Hct - 28.7 %???MCV - 90.3 femtoliters???MCH - 29.6 pg???MCHC - 32.8 Gm/dL???Platelet Count - 41 k/mm3???RDW-SD - 47.9 femtoliters???MPV - 11.5 femtoliters???Nucleated RBC (Automated) - 0.0 #/100 WBC'S???Abs. NRBC - 0.0 k/mm3???Abs. Neut - 2.2 k/mm3???Abs. Lymph - 1.5 k/mm3???Abs. Kern - 0.3 k/mm3???Abs. Eo - 0.1 k/mm3???Abs. Baso - 0.0 k/mm3???Neut % - 53.0 %???Lymph % - 37.3 %???Kern % - 8.1 %???Eos % - 1.2 %???Baso % - 0.2 %???Imm Gran- 0.2 %???Abs. Imm Gran - 0.0 k/mm3 Comprehensive Metabolic Panel (07/28/2024) ???Sodium - 132 mmol/L???Potassium - 3.9 mmol/L???Chloride - 100 mmol/L???Bicarbonate Level - 23 mmol/L???Anion Gap - 9 mmol/L???Glucose Level - 109 mg/dL???BUN - 7 mg/dL???Creatinine-Blood - 0.55 mg/dL???Estimated GFR Creatinine - 106 ML/MIN/1.73 M2???Calcium - 7.9 mg/dL???Protein, Total - 5.5 Gm/dL???Albumin - 3.5 Gm/dL???AG Ratio - 1.8???Alkaline Phosphatase - 106 units/L???AST (SGOT) - 47 units/L???ALT (SGPT) - 26 units/L???Bilirubin, Total - 1.4 mg/dL Electrolytes (07/26/2024) ???Sodium - 140 mmol/L???Potassium - 3.6 mmol/L???Chloride - 99 mmol/L???Bicarbonate Level - 20 mmol/L???Anion Gap - 21 mmol/L Ethanol Level (07/26/2024) ???Ethanol, Serum or Plasma - 100 mg/dL FREE T4 (07/26/2024) ???Free T4 - 1.63 ng/dL Hepatic Function Panel (07/29/2024) ???Protein, Total - 5.7 Gm/dL???Albumin - 3.5 Gm/dL???Alkaline Phosphatase - 109 units/L???AST (SGOT) - 36 units/L???ALT (SGPT) - 26 units/L???Bilirubin, Total - 0.8 mg/dL???Bilirubin, Direct - 0.3 mg/dL???Bilirubin, Indirect - 0.5 mg/dL HOLD GREEN TUBE (07/26/2024) ???Hold Green Top - SPECIMEN DISCARDED AFTER 1 WEEK INR (07/27/2024) ???INR - 1.3???Protime (PT) - 13.3 seconds Lactate Level (07/26/2024) ???Lactate - 1.3 mmol/L Lipase (07/26/2024) ???Lipase, Serum/Plasma - 18 units/L Magnesium Level (07/26/2024) ???Magnesium - 2.0 mg/dL Phenobarbital Level (07/28/2024) ???Phenobarb Level - 14.3 mg/L PHOSPHORUS (07/27/2024) ???Phosphorus - 2.9 mg/dL PTT (07/27/2024) ???APTT - 23.7 seconds TSH with T4 Reflex (Adults Only) (07/26/2024) ???TSH - 0.08 uIU/mL Type and Screen (07/27/2024) ???Blood Type - O Positive???Antibody Screen - Negative You will be contacted within 72 hours with your results. Immunizations This Visit Not Given Vaccine Commentsinfluenza virus vaccine, inactivated Patient Refuses Allergies (NKA means No Known Allergies) Augmentin??(hives) ciprofloxacin??(SWELLING, HIVES) sulfADIAZINE??(SWELLING, HIVES) Problems Active Problems??(9) ALCOHOL ABUSE?? Alcoholic cirrhosis of liver?? Anxiety?? Depression?? Depression?? GERD (gastroesophageal reflux disease)?? Hyperlipidemia?? HYPERTENSION?? Pancytopenia?? Education Materials Below is the list of Educational Leaflet Providered with your Discharge Instructions. WebMD Ignite Patient Education - Treating Cirrhosis?? WebMD Ignite Patient Education - Discharge Instructions for Liver Cirrhosis?? Web[employer] Ignite Patient Education - Understanding Cirrhosis?? WebMD Ignite Patient Education - Alcohol Withdrawal?? Web[employer]ite Patient Education - Naltrexone Injection?? WebMD Ignite Patient Education - Hydroxyzine?? Valuables and Belongings I fully understand and agree that [facility] accepts no responsibility for all my personal property including clothing, toilet articles, radios, jewelry, dentures, hearing aids, rings, money, or any other property that is in my possession or is brought to me after admission. I understand certain valuables may be placed in a hospital safe for a short period of time. I understand that the hospital is not liable for loss or damage due to accident, fire, or other natural occurrence while said property is in the safe. I accept full responsibility for any personal property that I keep with me, and will not hold the hospital responsible in case of loss or disappearance. I acknowledge that i have been encouraged to send valuables and belongings home. ?? Review of Valuable and Belonging List: With patient, With witness Date for Pt to Sign Valuables/Belongings: 07/27/24 17:32:00 ?? Other Discharge Information ? Pulmonary Rehab Status?? Pulmonary Rehab Discharge Status?? Respiratory Rate: 18 br/min ? Common Emergency Awareness Tips IS IT A STROKE? Act FAST and Check for these signs: FACE Does the face look uneven? ARM Does one arm drift down? SPEECH Does their speech sound strange? TIME Call at any sign of stroke ?? Heart Attack Signs Chest discomfort: Most heart attacks involve discomfort in the center of the chest and lasts more than a few minutes, or goes away and comes back. It can feel like uncomfortable pressure, squeezing, fullness or pain. Discomfort in upper body: Symptoms can include pain or discomfort in one or both arms, back, neck, jaw or stomach. Shortness of breath: With or without discomfort. Other signs: Breaking out in a cold sweat, nausea, or lightheaded. Remember, MINUTES DO MATTER. If you experience any of these heart attack warning signs, call to get immediate medical attention! ?? Smoking can increase your chances of developing chronic health problems and can cause harmful effects to other family members in your house. If you smoke, you are strongly encouraged to quit. Please call [facility] LOC&ALL Link at [phone] or [phone]) or log in to [email or web address] for referrals to smoking cessation programs. ?? 383 Suicide & Crisis Lifeline is available 13/12 if you or someone you know needs to find a reason to keep living. By calling 899 you'll be connected to a skilled, trained counselor at a crisis center in your area. INPATIENT DISCHARGE INSTRUCTIONS SIGNATURE PAGE KELSIDANIA RODRIGUEZNA Location:[facility] Registration Date and Time:07/26/2024 21:49 EST Primary Care Physician: Jayden Mayfield NP, Attending Physician: Reagan Salmon MD, I OSVALDO WALSH, have received the above patient education materials/instructions and have verbalized understanding. If ambulance or transport services are being used I further acknowledge being given a choice of service. ?? If you need to contact me, please call me at this number: . Patient/Refrigeration System Installer Name: Patient/Refrigeration System Installer Signature: Relationship to Patient: Witness Name/Signature: Date: * Linette Blanco RN: PERFORM Event Display: Patient Education Leaflets Authored Date: [id number] Treating Cirrhosis ?? 68221 Treating Cirrhosis Cirrhosis is a condition where the liver is damaged. Scar tissue slowly replaces healthy tissue. This makes the liver stop working correctly. Treatment can sometimes slow or even stop liver scarring.Over time the liver is able to regrow (regenerate) itself. Follow your doctor???s instructions closely to get the most out of your treatment. And ask your family and friends for support. Making a treatment plan You and your doctor will decide on a treatment plan that???s best for you. The plan may include 1 or more of these: ??? Not drinking??alcohol. Heavy alcohol use can damage the liver. Once the liver is damaged, even a small amount of alcohol can cause problems. You can prevent more liver damage??if you stop all alcohol use.? Taking medicines. You may need to take these to treat some causes of cirrhosis. These include infection or a bile duct blockage. For instance, hepatitis C can now be cured with medicine. And you may need medicine??if your immune system is attacking the liver or bile ducts. Talk to your doctor before taking common pain medicines if you have cirrhosis. These include acetaminophen. And they include nonsteroidal anti-inflammatory drugs, such as ibuprofen and naproxen.? Treating s ymptoms. Cirrhosis can cause swelling in your stomach and legs. A low-salt diet can help ease this symptom. Stay under about 2,000 mg of sodium a day. Water pills (diuretics) may also be prescribed to help with swelling. Cirrhosis can also cause mental confusion. Medicines are used to treat this. ??? Eating healthy foods. ??? Losing extra weight. This is even more important if??your cirrhosis is from metabolic dysfunction-associated steatotic liver disease (MASLD) or metabolic dysfunction-associated steatohepatitis (MASH). Cirrhosis from MASLD or MASH is linked to excess weight or obesity. Ifyou have MASLD, weight loss and exercise can slow down liver damage. ??? Removing iron from your blood. This may be done if your cirrhosis is caused by hemochromatosis. This condition occurs when toomuch iron builds up in the body. Your doctor may remove extra iron from your blood. Severe cases of cirrhosis may need special treatments. Your doctor can discuss them with you. ?? Vaccines Be sure to ask your doctor about advised vaccines. These include vaccines for viruses than can cause liver disease, such as hepatitis A and B. ?? Don't drink alcohol Alcohol use can destroy liver cells. If you have problems quitting alcohol, ask your doctor for help with getting the support you need. They may be able to suggest treatment centers or local groups that can help you stop drinking. ?? Last Reviewed Date: 2023 ?? [id number] The [employer]. All rights reserved. This information is not intended as a substitute for professional medical care. Always follow your healthcare professional's instructions. ?? * Linette Blanco RN: PERFORM Event Display: Patient Education Leaflets Authored Date: [id number] Discharge Instructions for Liver Cirrhosis ?? 80726 Discharge Instructions for Liver Cirrhosis You have been diagnosed with cirrhosis of the liver. This is a long-term (chronic)??problem. It occurs when liver tissue is destroyed and replaced by scar tissue. Causes of cirrhosis include: ??? Infection such as viral hepatitis ??? Chronic alcoholism ??? The body???s immune system attackshealthy cells (autoimmune disorders) ??? Obesity, diabetes, high blood pressure, and high cholesterol ??? Medicine side effects ??? Genetic diseases Sometimes the exact cause is unknown. You may not have any symptoms at first. Or your symptoms may be mild. But they usually get worse. Cirrhosis is likely to occur if you have a history of long-termalcohol abuse. Cirrhosis can???t be cured. But it can be treated??and sometimes can improve. Home care Alcohol ??? People with cirrhosis should not drink alcohol. If you stop drinking, you may feel better and live longer. Even if cirrhosis is not from alcohol, alcohol may cause the liver disease to get worse.??? If you are a chronic alcohol user, you will have withdrawal symptoms. Talk with your healthcareprovider for more information. ? If alcohol is a problem, ask your provider about medicine that can help you quit drinking. ? Find a local Alcoholics Anonymous support group online at www.aa.org/. Diet ??? Ask your provider what kind of diet you should follow. You may be asked to limit or not eat certain foods. Don't limit your protein intake. ??? Weigh yourself daily and keep a weight log. If you have a sudden change in weight, call your provider. ??? Cut back on salt: o Limit canned, dried, packaged, and fast foods. o Don???t add salt to your food at the table. o Season foods with herbs instead of salt when you cook. Medicines, supplements, and vaccines ??? Take your medicines exactly as directed. ??? Talk with your provider before taking vitamins, akxn-wag-kpcgfkr medicines, or herbal supplements. Some herbal supplements may be toxic to the liver. Painkillers called NSAIDs (nonsteroidal anti-inflammatory drugs), such as ibuprofen, can harm the liver if you have cirrhosis. ??? Don't take aspirin or other blood-thinning medicines unless directed by your provider. ??? Discuss vitamin supplements and deficiencies with your provider. ??? Ask your provider about getting vaccines for viruses that can cause liver diseases. ?? Follow-up care Follow up with your healthcare provider, or as advised. You will likely have the following tests: ??? Lab tests ??? Blood tests for liver cancer ??? Ultrasound or MRI of your liver every 6 months ???Endoscopy to check for swollen veins (varices) in your digestive tract ??? Other tests and medicines are needed if the cirrhosis worsens. ?? When to call your provider Call your healthcare provider right away if you have any of the following: ??? Fever of?? 100.4??F??( 38.0??C) or higher, or as directed by your provider ??? Extreme tiredness (fatigue),??weakness,??or lack of appetite ??? Vomiting (with or without blood) ??? Yellowing of your skin or eyes (jaundice) ??? Itching ??? Swelling in your belly or legs ??? Black or tarry stools ??? Skin that bruises easily ??? Confusion or trouble thinking clearly ?? Last Reviewed Date: 2021 ?? [employer]. All rights reserved. This information is not intended as a substitute for professional medical care. Always follow your healthcare professional's instructions. ?? * Linette Blanco RN: PERFORM Event Display: Patient Education Leaflets Authored Date: [id number] Understanding Cirrhosis ?? 54776 Understanding Cirrhosis Cirrhosis is a lifelong (chronic) liver problem. It results from damaged and scarred liver tissue. Cirrhosis can???t be cured. But it can be treated. The liver The liver is a large organ in the upper right part of the belly. A healthy liver breaks down proteins, carbohydrates, and fats. It makes a digestive fluid called bile. It also takes toxins out of theblood. The liver is part of the blood- clotting process. ?? Causes of cirrhosis The causes of cirrhosis may include: ??? Alcohol use. ??? Viral liver infections, such as hepatitis B and C. ??? Chronic bile duct blockage. ??? Some inherited diseases that cause too much copper or iron to be stored in the liver. ??? Some medicines. ??? Autoimmune disease. Another cause is metabolic dysfunction-associated steatotic liver disease. This is very common. It often happens in people who have other risk factors linked to extra weight or obesity. These include: ??? Diabetes. ??? High blood pressure. ??? High cholesterol or triglycerides. ??? Other metabolic problems. ?? Common signs and symptoms Common symptoms of cirrhosis include: ??? Severe tiredness (fatigue). ??? Weakness. ??? Low appetite. ??? Upset stomach (nausea) and vomiting. ??? Weight loss or weight gain. ??? Yellowish skin and eyes (jaundice). ??? Severe itching. ??? Swollen belly and legs. ??? Mild pain in the right upper side of your belly. ??? Intestinal bleeding. ??? Easy skin bruising and bleeding. ??? Enlarged (dilated) veins in the esophagus and stomach. This can lead to serious GI bleeding. ??? Poor mental function. ??? Spider-like blood vessels. ?? When you have cirrhosis When you have cirrhosis, your liver gets damaged and scarred. It doesn???t work as it should. In some cases, cirrhosis can lead to liver failure. If it does, you may need a liver transplant.??Cirrhosis puts you at higher risk for liver cancer. Other tests are needed to look for problems from cirrhosis and check for liver cancer. Keep all follow-up appointments with your doctor. You can slow down cirrhosis and prevent more liver damage if you stop all alcohol use. Here are other changes you can make: ??? Lose extra weight. ??? Control blood sugar if you have diabetes. ??? Don't eat raw or uncooked shellfish, fish, meat, and unpasteurized dairy products. ??? Limit salt in food and drinks. ??? Talk with a dietitian for meal planning (due to risk of malnutrition). ??? Talk with your doctor about all the medicines, vitamins, and supplements you take. ??? Ask your doctor ifhepatitis A and B vaccines are right for you. ?? Last Reviewed Date: 2023 ?? [id number] The [employer]. All rights reserved. This information is not intended as a substitute for professional medical care. Always follow your healthcare professional's instructions. ?? Patient Care team information Care Team Personnel Name: Sandra Mcmahon RN Position: Earl MALDONADO RN Member Role: Primary Care Nurse Name: Gladys Jiménez Position: Earl RN Member Role: Primary Care Nurse Name: Cooper Grimm RN Position: Earl RN Member Role: Primary Care Nurse Name: Jayden Mayfield NP Position: Reference Physician Member Role: PCP Address: [address] [place] [address]- [place] [employer]: Name: Ligia Poole RN Position: S RN Member Role: Primary Care Nurse Name: Miguelito Rojas RN Position: S RN Member Role: Primary Care Nurse Name: Leonila Pritchett RN Position: S RN Member Role: Primary Care Nurse Care Team Related Persons Name: DEE DEE WALSH Name: SKYLAR WALSH Name: WASHINGTON KILLIAN Insurance Providers Guarantor name: [employer] Health Plan Information #: 1 Payer: [employer] Member Number: [id number] Policy Number: NA Group Number: [id number] Health Plan Information #: 2 Payer: [employer] Member Number: [id number] Policy Number: [employer] Group Number: NA
--- OUTSIDE RECORDS SUMMARY | 2024-08-08 11:05 | XMS_ITS | Clinical Summary ---
Author Organization [facility] it Address [address] [place] [address] Care Team Providers Care Ground Support Equipment Fitter Name Role Phone Unavailable Primary Care Provider Unavailabl e Social History Tobacco Use Types Packs/Day Years Used Date Smoking Tobacco: Never Assessed Comments Unknown Sex and Gender Information Value Date Recorded Sex Assigned at Not on file Legal Sex Female 4:08 PM EST Gender Identity Not on file Sexual Orientation Not on file Plan of Treatment Health Maintenance Due Date Last Done Comments Breast Cancer Screening 1966 DTaP,Tdap,and Td Vaccines (1 - Tdap) 1985 Hepatitis B Vaccines (1 of 3 - 19+ 3-dose series) 1985 Cervical Cancer Screening: P ap Smear 1987 Pneumococcal Vaccine: 50+ Ye ars (1 of 1 - PCV) 2016 Zoster Vaccines (1 of 2) 2016 Colorectal [...] patient's age to complete this topic Meningococcal B Vacine Aged Out No lo nger eligible based on patient's age to complete [...] Documents on File Type Date Recorded 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
== END 2024-08-08 10:26 | disposition home or self-care (01) ==
LOC: HO.HCC 09:49
PROVIDERS: PCP Nurse Practitioner Family; Visit Provider Nurse Practitioner Psychiatric/Mental Health
DX: F10.20 Alcohol dependence, uncomplicated (principal)
CPT/HCPCS: 99214

== ENCOUNTER → 2024-08-08 09:49 | Outpatient (BNVA) | payer OTHER, SELFPAY | PROVIDERS: PCP Nurse Practitioner Family; Visit Provider Nurse Practitioner Psychiatric/Mental Health | DX: F10.20 Alcohol dependence, uncomplicated (principal) | CPT/HCPCS: 99212 ==

== ENCOUNTER 2024-09-03 09:37 | Outpatient (AMB) | payer OTHER, SELFPAY ==
--- NOTE | 2024-09-03 09:38 | MHC.OFFVIS ---
Vital Signs 09/03/24 09:47 Height 5 ft 4 in Weight 148 lb BMI 25.4 Pulse 77 Pulse Source Pulse Oximeter Pulse Oximetry (%) 99 Oxygen Delivery Method Room Air Intake Visit Reasons: MAT Allergies amoxicillin [Augmentin] Allergy (Unknown, Verified 09/03/24 09:48) hives ciprofloxacin [From CIPRO] Allergy (Unknown, Verified 09/03/24 09:48) HIVES clavulanic acid [Augmentin] Allergy (Unknown, Verified 09/03/24 09:48) hives trazodone Allergy (Unknown, Verified 09/03/24 09:48) unknown HPI HPI MAT: Details: She has AUD and is 39 days sober. She is doing IOP at [facility] and likes it very much. She had abdominal ultrasound at [facility] and was told to see GI. She reports having lump on buttock area shortly after Vivitrol IM and prefers pills. She takes MVI and folic acid and will pickup thiamine. She was told needs to see GI after last withdrawal and hospital evaluation [facility]. 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 She has [employer]SI dog as support . [facility] Medical History Alcohol use disorder, moderate, dependence Fractured nose ETOH abuse Alcohol abuse Anxiety and depression Aftercare following left shoulder joint replacement surgery Surgical History History of shoulder surgery Family History Father Bladder cancer Lung cancer Eye cancer Mother HTN (hypertension) Sister No problems noted. Son No problems noted. Daughter No problems noted. Maternal Grandmother HTN (hypertension) Paternal Grandfather No problems noted. Maternal Grandfather No problems noted. Paternal Grandmother No problems noted. 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 Current occupational exposures/hazards: No Cognitive needs: No Hearing needs: No Vision needs: Yes Review of Systems Const All systems reviewed & are unremarkable except as noted in HPI and below Physical Exam Vital Signs: Last Vital Signs Pulse 77 09/03/24 09:47 Pulse Ox 99 09/03/24 09:47 Oxygen Delivery Method Room Air 09/03/24 09:47 BMI result Body Mass Index 25.4 Const General: cooperative Results AMB 14 Panel Urine Drug Screen Urine Marijuana (THC) Positive Last Edit by Bradford Vogt CMA on 09/03/24 09:55 Urine Cocaine Negative Last Edit by Bradford Vogt CMA on 09/03/24 09:55 Urine Morphine Negative Last Edit by Bradford Vogt CMA on 09/03/24 09:55 Urine Methamphetamine Negative Last Edit by Bradford Vogt CMA on 09/03/24 09:55 Urine Amphetamine Negative Last Edit by Bradford Vogt CMA on 09/03/24 09:55 Urine Benzodiazepine Negative Last Edit by Bradford Vogt CMA on 09/03/24 09:55 Urine Barbiturates Negative Last Edit by Bradford Vogt CMA on 09/03/24 09:55 Urine Methadone Negative Last Edit by Bradford Vogt CMA on 09/03/24 09:55 Urine Buprenorphine Negative Last Edit by Bradford Vogt CMA on 09/03/24 09:55 Urine Tricyclic Antidepressant Negative Last Edit by Bradford Vogt CMA on 09/03/24 09:55 Urine MDMA Negative Last Edit by Bradford Vogt CMA on 09/03/24 09:55 Urine Oxycodone Negative Last Edit by Bradford Vogt CMA on 09/03/24 09:55 Urine Phencyclidine Negative Last Edit by Bradford Vogt CMA on 09/03/24 09:55 Urine Propoxyphene Negative Last Edit by Bradford Vogt CMA on 09/03/24 09:55 Results Reviewed Results Reviewed: Laboratory Last Values POC Urine Buprenorphine Negative 09/03/24 09:48 POC Urine Morphine Negative 09/03/24 09:48 POC Urine Oxycodone Negative 09/03/24 09:48 POC Urine Methadone Negative 09/03/24 09:48 POC Urine Propoxyphene Negative 09/03/24 09:48 POC Urine Barbiturates Negative 09/03/24 09:48 POC U Tricyclic Antidpr Negative 09/03/24 09:48 POC Urine PCP Negative 09/03/24 09:48 POC Ur Amphetamines Negative 09/03/24 09:48 POC Ur Methamphetamine Negative 09/03/24 09:48 POC Urine MDMA Negative 09/03/24 09:48 POC Ur Benzodiazepine Negative 09/03/24 09:48 POC Urine Cocaine Negative 09/03/24 09:48 POC Ur Marijuana (THC) Positive 09/03/24 09:48 Assessment & Plan Assessment & Plan (1) Alcohol use disorder, moderate, dependence: Comment: She feels stable now She feels po Naltrexone is enough and doesnt want Campral or antabuse She will get liver eval and has no swelling or jaundice Code(s): F10.20 - Alcohol dependence, uncomplicated Category: Medical Plan: Sertraline for depression (no SI or HI) Naltrexone 50 mg daily one month and one refill. See in one month Continue IOP next month and may extend. She will see psychiatry if needed. labs for liver eval and see GI. Orders: Orders Creatinine Today F10.20 - Alcohol dependence, uncomplicated Liver Panel Today F10.20 - Alcohol dependence, uncomplicated Hepatitis B Surface Ab Qnt Today F10.20 - Alcohol dependence, uncomplicated Hepatitis B Surface Antigen Today F10.20 - Alcohol dependence, uncomplicated Hepatitis C Antibody Today F10.20 - Alcohol dependence, uncomplicated Hepatitis A IgG Today F10.20 - Alcohol dependence, uncomplicated AMB 14 Panel Urine Drug Screen Today Z51.81 - Encounter for therapeutic drug level monitoring Complete Blood Count Auto Diff Today F10.20 - Alcohol dependence, uncomplicated Liver Fibrosis Pnl Today F10.20 - Alcohol dependence, uncomplicated HIV Ab/Ag Today F10.20 - Alcohol dependence, uncomplicated Medications: New sertraline 75 mg (1.5 x 50 mg) PO DAILY 30 days 45 tabs 5RF naltrexone 50 mg PO DAILY 30 days 30 tabs 1RF Coding Level of Care Code Est Pt Level 4 (07288) Diagnoses Alcohol use disorder, moderate, dependence F10.20
[2024-09-03 09:47] VITALS: PULSE 77; O2SAT 99; BMI 25.4
--- OUTSIDE RECORDS SUMMARY | 2024-09-03 10:44 | XMS_ITS | Clinical Summary ---
Author Organization 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
== END 2024-09-03 10:15 | disposition home or self-care (01) ==
LOC: HO.HCC 09:38
PROVIDERS: PCP Nurse Practitioner Family; Visit Provider Internal Medicine
DX: Z51.81 Encounter for therapeutic drug level monitoring (principal); F10.20 Alcohol dependence, uncomplicated
CPT/HCPCS: 99214

== ENCOUNTER → 2024-09-03 09:37 | Outpatient (BNVA) | payer OTHER, SELFPAY | PROVIDERS: PCP Nurse Practitioner Family; Visit Provider Internal Medicine | DX: F10.20 Alcohol dependence, uncomplicated (principal); Z51.81 Encounter for therapeutic drug level monitoring; Z79.899 Other long term (current) drug therapy | CPT/HCPCS: 80307; 99212 ==

== ENCOUNTER 2024-10-01 09:21 | Outpatient (AMB) | payer OTHER, SELFPAY ==
--- OUTSIDE RECORDS SUMMARY | 2024-10-01 09:28 | XMS_ITS | Clinical Summary ---
Author Organization [facility] it Address [address] [place] [address] Care Team Providers Care Pipe Fitter Fire Sprinkler Systems Name Role Phone Unavailable Primary Care Provider [...] Documents on File Type Date Recorded Patient Natural Gas Plant Technician Expl anation Health Care Decision (hx) 05/06/2016 AD DOMINIQUE DIRECTIVE
[2024-10-01 09:50] VITALS: BP 126/82; O2SAT 99
--- NOTE | 2024-10-01 09:50 | A.OFFVISCC_ITS ---
Vital Signs 10/01/24 09:50 BP 126/82 Blood Pressure Location Lt brachial Position Sitting Pulse Source Pulse Oximeter Pulse Oximetry (%) 99 Oxygen Delivery Method Room Air Intake Visit Reasons: MAT Allergies amoxicillin [Augmentin] Allergy (Unknown, Verified 09/03/24 09:48) hives ciprofloxacin [From CIPRO] Allergy (Unknown, Verified 09/03/24 09:48) HIVES clavulanic acid [Augmentin] Allergy (Unknown, Verified 09/03/24 09:48) hives trazodone Allergy (Unknown, Verified 09/03/24 09:48) unknown Physical Exam Vital Signs: Last Vital Signs BP 126/82 10/01/24 09:50 Pulse Ox 99 10/01/24 09:50 Oxygen Delivery Method Room Air 10/01/24 09:50 [facility] Medical History Alcohol use disorder, moderate, dependence Fractured nose ETOH abuse Alcohol abuse Anxiety and depression Aftercare following left shoulder joint replacement surgery Surgical History History of shoulder surgery Family History Father Bladder cancer Lung cancer Eye cancer Mother HTN (hypertension) Sister No problems noted. Son No problems noted. Daughter No problems noted. Maternal Grandmother HTN (hypertension) Paternal Grandfather No problems noted. Maternal Grandfather No problems noted. Paternal Grandmother No problems noted. 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
--- NOTE | 2024-10-01 10:14 | MHC.AM.SUB ---
Vital Signs 10/01/24 09:50 BP 126/82 Blood Pressure Location Lt brachial Position Sitting Pulse Source Pulse Oximeter Pulse Oximetry (%) 99 Oxygen Delivery Method Room Air Intake Visit Reasons: MAT Allergies amoxicillin [Augmentin] Allergy (Unknown, Verified 09/03/24 09:48) hives ciprofloxacin [From CIPRO] Allergy (Unknown, Verified 09/03/24 09:48) HIVES clavulanic acid [Augmentin] Allergy (Unknown, Verified 09/03/24 09:48) hives trazodone Allergy (Unknown, Verified 09/03/24 09:48) unknown HPI HPI MAT: Details: She has been doing well She has no problems with po Naltrexone. She hasnt done labs yet but no issues She continues with IOP. Review of Systems Const All systems reviewed & are unremarkable except as noted in HPI and below Physical Exam Vital Signs: Last Vital Signs BP 126/82 10/01/24 09:50 Pulse Ox 99 10/01/24 09:50 Oxygen Delivery Method Room Air 10/01/24 09:50 Const General: cooperative [facility] Medical History Alcohol use disorder, moderate, dependence Fractured nose ETOH abuse Alcohol abuse Anxiety and depression Aftercare following left shoulder joint replacement surgery Surgical History History of shoulder surgery Family History Father Bladder cancer Lung cancer Eye cancer Mother HTN (hypertension) Sister No problems noted. Son No problems noted. Daughter No problems noted. Maternal Grandmother HTN (hypertension) Paternal Grandfather No problems noted. Maternal Grandfather No problems noted. Paternal Grandmother No problems noted. 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 Medications: Refilled naltrexone 50 mg PO DAILY 30 days 30 tabs 1RF
== END 2024-10-01 10:06 | disposition home or self-care (01) ==
LOC: HO.HCC 09:21
PROVIDERS: PCP Nurse Practitioner Family; Visit Provider Internal Medicine
DX: F10.20 Alcohol dependence, uncomplicated (principal)
CPT/HCPCS: 99213

== ENCOUNTER → 2024-10-01 09:21 | Outpatient (BNVA) | payer OTHER, SELFPAY | PROVIDERS: PCP Nurse Practitioner Family; Visit Provider Internal Medicine | DX: F10.20 Alcohol dependence, uncomplicated (principal) | CPT/HCPCS: 99212 ==

== ENCOUNTER 2024-10-29 09:27 | Outpatient (AMB) | payer OTHER, SELFPAY ==
[2024-10-29 09:26] VITALS: PULSE 73; O2SAT 99
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
--- OUTSIDE RECORDS SUMMARY | 2024-10-29 09:58 | XMS_ITS | Clinical Summary ---
Author Organization [facility] it Address [address] [place] [address] Care Team Providers Care Assembler Leather Goods Name Role Phone Unavailable Primary Care Provider [...] Documents on File Type Date Recorded Patient Panel Machine Setter Expl anation Health Care Decision (hx) 05/06/2016 AD DOMINIQUE DIRECTIVE
== END 2024-10-29 09:56 | disposition home or self-care (01) ==
LOC: HO.HCC 09:27
PROVIDERS: PCP Nurse Practitioner Family; Visit Provider Internal Medicine
DX: F10.20 Alcohol dependence, uncomplicated (principal)
CPT/HCPCS: 99213

== ENCOUNTER → 2024-10-29 09:27 | Outpatient (BNVA) | payer OTHER, SELFPAY | PROVIDERS: PCP Nurse Practitioner Family; Visit Provider Internal Medicine | DX: F10.20 Alcohol dependence, uncomplicated (principal) | CPT/HCPCS: 99212 ==

== ENCOUNTER 2024-11-12 15:17 | Outpatient (AMB) | payer OTHER, SELFPAY ==
--- NOTE | 2024-11-12 16:00 | MHC.OFFVIS ---
Intake Visit Reasons: New prob- RT middle finger catching Intake Note: Araceli 59 yr old right hand dominant female presents today for a new problem visit for her right middle finger. States her finger is catching and locking and is very painful. States her finger locks with heavy lifting of just randomly through out the day. Hx of right ring finger trigger release 01/30/24 AR Allergies amoxicillin (Augmentin) Allergy (Unknown, Verified 11/12/24 16:02) hives ciprofloxacin (From CIPRO) Allergy (Unknown, Verified 11/12/24 16:02) HIVES clavulanic acid (Augmentin) Allergy (Unknown, Verified 11/12/24 16:02) hives trazodone Allergy (Unknown, Verified 11/12/24 16:02) unknown HPI HPI New prob- RT middle finger catching: Details: Araceli 59 yr old right hand dominant female presents today for a new problem visit for her right middle finger. States her finger is catching and locking and is very painful. States her finger locks with heavy lifting of just randomly through out the day. Hx of right ring finger trigger release 01/30/24 AR [facility] Medical History Alcohol use disorder, moderate, dependence Fractured nose ETOH abuse Alcohol abuse Anxiety and depression Aftercare following left shoulder joint replacement surgery Surgical History History of shoulder surgery Family History Father Bladder cancer Lung cancer Eye cancer Mother HTN (hypertension) Sister No problems noted. Son No problems noted. Daughter No problems noted. Maternal Grandmother HTN (hypertension) Paternal Grandfather No problems noted. Maternal Grandfather No problems noted. Paternal Grandmother No problems noted. 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 Neuro: Normal sensation of the tips of all digits of the right hand at this time Vascular: Cap refill brisk Pain: No tenderness to palpation of A1 korin of right middle finger Pain with locking and catching of right middle finger ROM: Visible and palpable locking and catching of the right middle finger in a flexed position Patient is able to flex and extend all other digits of the right hand fully and without difficulty Skin: No lacerations or abrasions. General: No ecchymosis, erythema, or evidence of infection. Psych: Appears grossly normal Affect normal Attitude cooperative Assessment & Plan Assessment & Plan (1) Trigger finger, right middle finger: Code(s): M65.331 - Trigger finger, right middle finger Category: Medical Plan 1. Right middle finger trigger finger I educated the patient about the condition. I discussed both operative and nonoperative treatment options. The patient would like to proceed with surgery. The risks and benefits of operative treatment were discussed with the patient and the patient wishes to proceed with surgery. These risks include, but are not limited to, risk of damage to blood vessels, nerves, tendons, infection, recurrence, incomplete relief of preoperative symptoms, persistent pain, possible need for further surgery, and the risks associated with regional blocks and/or anesthesia. Plan is to take the patient to the operating room at some point in the next few weeks for the following procedures: 1. Right middle finger trigger release under local All of the preoperative paperwork including the consent was discussed today. All of the patient's questions were answered in the clinic today. The patient understands that they will be in contact with our surgical garment assembler to discuss scheduling their procedure. Patient denies diabetes, blood thinners, asthma, heart issues, lung issues, kidney issues, or current smoking. Coding Level of Care Code Est Pt Level 4 (52153) Diagnoses Trigger finger, right middle finger M65.331
--- OUTSIDE RECORDS SUMMARY | 2024-11-12 16:49 | XMS_ITS | Clinical Summary ---
Author Organization [facility] it Address [address] [place] [address] Care Team Providers Care Tomahawk Weapon System Operator Name Role Phone Unavailable Primary Care Provider [...] Documents on File Type Date Recorded Patient Pot Firer Expl anation Health Care Decision (hx) 05/06/2016 AD DOMINIQUE DIRECTIVE
== END 2024-11-12 16:18 | disposition home or self-care (01) ==
LOC: HO.HOS 15:17
PROVIDERS: PCP Nurse Practitioner Family
DX: M65.331 Trigger finger, right middle finger (principal)
CPT/HCPCS: 99214

== ENCOUNTER → 2024-11-12 15:17 | Outpatient (BNVA) | payer OTHER, SELFPAY | PROVIDERS: PCP Nurse Practitioner Family | DX: M65.331 Trigger finger, right middle finger (principal) | CPT/HCPCS: 99212 ==

== ENCOUNTER 2024-11-14 08:51 | Outpatient (REF) | payer OTHER, SELFPAY ==
--- OUTSIDE RECORDS SUMMARY | 2024-11-14 09:26 | XMS_ITS | Clinical Summary ---
Author Organization [facility] it Address [address] [place] [address] Care Team Providers Care Bronc Breaker Name Role Phone Unavailable Primary Care Provider [...] Documents on File Type Date Recorded Patient Social Work Assistant Expl anation Health Care Decision (hx) 05/06/2016 AD DOMINIQUE DIRECTIVE
== END 2024-11-14 08:52 | disposition home or self-care (01) ==
LOC: HO.MAMMO 08:51
PROVIDERS: PCP Nurse Practitioner Family; Visit Provider Nurse Practitioner Family
DX: Z12.31 Encounter for screening mammogram for malignant neoplasm of breast (principal)
CPT/HCPCS: 77063; 77067

== ENCOUNTER → 2024-11-14 09:00 | Outpatient (BNV) | payer OTHER, SELFPAY | PROVIDERS: PCP Nurse Practitioner Family; Visit Provider Internal Medicine | DX: Z12.31 Encounter for screening mammogram for malignant neoplasm of breast (principal) | CPT/HCPCS: 77063; 77067 ==

== ENCOUNTER 2024-11-26 09:01 | Outpatient (AMB) | payer OTHER, SELFPAY ==
--- OUTSIDE RECORDS SUMMARY | 2024-11-26 09:24 | XMS_ITS | Clinical Summary ---
Author Organization [facility] it Address [address] [place] [address] Care Team Providers Care Provider Relations Coordinator Name Role Phone Unavailable Primary Care Provider [...] 2023-2 5 season) 2024 Influenza Vaccine (#1) 2025 HIB Vaccines Aged Out No longer [...] Documents on File Type Date Recorded Patient Loader Helper Expl anation Health Care Decision (hx) 05/06/2016 AD DOMINIQUE DIRECTIVE
[2024-11-26 09:40] VITALS: PULSE 70; O2SAT 99; BMI 26.6
--- NOTE | 2024-11-26 09:40 | MHC.OFFVIS ---
Vital Signs 11/26/24 09:40 Height 5 ft 3 in Weight 150 lb BMI 26.6 Pulse 70 Pulse Source Pulse Oximeter Pulse Oximetry (%) 99 Oxygen Delivery Method Room Air Intake Visit Reasons: MAT Allergies amoxicillin (Augmentin) Allergy (Unknown, Verified 11/26/24 09:40) hives ciprofloxacin (From CIPRO) Allergy (Unknown, Verified 11/26/24 09:40) HIVES clavulanic acid (Augmentin) Allergy (Unknown, Verified 11/26/24 09:40) hives trazodone Allergy (Unknown, Verified 11/26/24 09:40) unknown Medication List - Last Reconciled 11/26/24 by RILEY Lemus albuterol sulfate 90 mcg/actuation (Ventolin HFA) 2 puffs inhalation Q6H PRN albuterol sulfate 90 mcg/actuation 2 puffs inhalation Q6H PRN cholecalciferol (vitamin D3) 50 mcg PO DAILY clonazepam 0.5 mg PO BID PRN 30 days fluticasone propion-salmeterol 250-50 mcg/dose 1 inh inhalation BID naltrexone 50 mg PO DAILY 30 days omeprazole 40 mg PO DAILY 90 days ondansetron HCl 4 mg PO Q12H PRN 20 days rosuvastatin 5 mg PO DAILY sertraline 75 mg (1.5 x 50 mg) PO DAILY 30 days HPI Comments Details: The patient is a 59-year-old female with a history of alcohol use disorder. She reports four months of sobriety from alcohol, noting this is the longest period she has maintained abstinence. She struggles with daily cravings, mainly when seeing the liquor store across from her home. She reflects on past drinking behavior, understanding it did not serve her well and expressing concern about the potential consequences of relapse. She does not currently engage with Alcoholics Anonymous or a defensive line coach, stating some ambivalence toward these resources. The patient reports daily use of cannabis, described as a little here, a little there, not interfering with her daily life as alcohol did previously. She emphasizes that cannabis use does not hinder her responsibilities and activities. She has successfully abstained from alcohol for four months. Education provided re: gradually decreasing cannabis use. Historically, the patient's alcohol use negatively impacted her work performance, leading to occupational instability. 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 This resignation leaves her unemployed and she seeks new employment within the same school district. [facility] Medical History (Updated 11/26/24 @ 10:24 by RILEY Lemus) Alcohol use disorder, moderate, dependence Fractured nose ETOH abuse Alcohol abuse Anxiety and depression Aftercare following left shoulder joint replacement surgery Surgical History History of shoulder surgery Family History Father Bladder cancer Lung cancer Eye cancer Mother HTN (hypertension) Sister No problems noted. Son No problems noted. Daughter No problems noted. Maternal Grandmother HTN (hypertension) Paternal Grandfather No problems noted. Maternal Grandfather No problems noted. Paternal Grandmother No problems noted. Other Fractured nose Social History (Updated 11/26/24 @ 10:09 by RILEY Lemus) Housing: House Patient Tobacco Use Status: Former Tobacco user e-Cigarette/Vaping Use: Never Used Second Hand Smoke Exposure: Yes service: No Current occupational status: unemployed Current occupational exposures/hazards: No Cognitive needs: No Hearing needs: No Vision needs: Yes Review of Systems Const All systems reviewed & are unremarkable except as noted in HPI and below Physical Exam Vital Signs: Last Vital Signs Pulse 70 11/26/24 09:40 Pulse Ox 99 11/26/24 09:40 Oxygen Delivery Method Room Air 11/26/24 09:40 BMI result Body Mass Index 26.6 Psych Appearance: well kempt Mental Status: mental status grossly normal Speech and movement: Normal speech and movement present Affect: normal affect Attitude: cooperative Thought process: Normal thought process present Insight: Good insight present (Psych) Judgement: Good judgement present (Psych) Assessment & Plan Assessment & Plan (1) Alcohol use disorder, severe, dependence: Code(s): F10.20 - Alcohol dependence, uncomplicated Category: Medical (2) Alcohol use disorder, moderate, dependence: Comment: The patient reports four months of sobriety and feels stable on naltrexone 50 mg. Code(s): F10.20 - Alcohol dependence, uncomplicated Category: Medical Plan The patient maintains sobriety with naltrexone 50 mg daily. Prescribed sertraline 75 mg/daily and is to continue. Education and contact information provided for [facility], [phone]. She is encouraged to engage in therapy services. Medications: Refilled naltrexone 50 mg PO DAILY 30 tabs 1RF 30 days Patient Instructions: - Continue taking naltrexone 50 mg/daily and sertraline 75 mg/daily, as prescribed. - Engage with [facility] for therapy. - Utilize open-door resources at [facility] if feelings of relapse arise. - Consider reducing cannabis use gradually. - Monitor depression/anxiety levels and use prescribed medications as directed. - Follow up in one month. Scribe Plan - Not visible on output: Patient was informed and verbally consented to the use of Ambien scribe for clinical no documentation during this visit. Coding Level of Care Code Est Pt Level 3 (15159) Diagnoses Alcohol use disorder, severe, dependence F10.20 Alcohol use disorder, moderate, dependence F10.20
== END 2024-11-26 09:58 | disposition home or self-care (01) ==
PROVIDERS: PCP Nurse Practitioner Family; Visit Provider Clinical Nurse Specialist Psychiatric/Mental Health
DX: F10.20 Alcohol dependence, uncomplicated (principal)
CPT/HCPCS: 99213

== ENCOUNTER → 2024-11-26 09:01 | Outpatient (BNVA) | payer OTHER, SELFPAY | PROVIDERS: PCP Nurse Practitioner Family; Visit Provider Clinical Nurse Specialist Psychiatric/Mental Health | DX: F10.20 Alcohol dependence, uncomplicated (principal) | CPT/HCPCS: 99212 ==

== ENCOUNTER 2024-11-29 07:18 | Outpatient (AMB) | payer OTHER, SELFPAY ==
--- OUTSIDE RECORDS SUMMARY | 2024-11-29 07:21 | XMS_ITS | Clinical Summary ---
Author Organization [facility] it Address [address] [place] [address] Care Team Providers Care Blister Pack Operator Name Role Phone Unavailable Primary Care [...] 5 Years) and At-Risk Patients (6 to 49 Years) Aged Out No longer eligible b ased on patient's age to complete this topic RSV Immunization Patients Un estela 20 months Aged Out No longer eligible b ased on patient's age to complete this topic Varicella Vaccines Aged Out No longer eligible based on patient's age to complete this topic Advance Directives Documents on File Type Date Recorded Patient Senior Relationship Manager Expl anation Health Care Decision (hx) 05/06/2016 AD DOMINIQUE DIRECTIVE
--- NOTE | 2024-11-29 08:13 | A.OFFPC_ITS ---
Intake Visit Reasons: 5 month follow up, ok by Jayden Allergies amoxicillin (Augmentin) Allergy (Unknown, Verified 11/29/24 08:18) hives ciprofloxacin (From CIPRO) Allergy (Unknown, Verified 11/29/24 08:18) HIVES clavulanic acid (Augmentin) Allergy (Unknown, Verified 11/29/24 08:18) hives trazodone Allergy (Unknown, Verified 11/29/24 08:18) unknown Medication List - Last Reconciled 11/29/24 by Jayden Mayfield, [facility] albuterol sulfate 90 mcg/actuation (Ventolin HFA) 2 puffs inhalation Q6H PRN albuterol sulfate 90 mcg/actuation 2 puffs inhalation Q6H PRN cholecalciferol (vitamin D3) 50 mcg PO DAILY clonazepam 0.5 mg PO BID PRN 30 days fluticasone propion-salmeterol 250-50 mcg/dose 1 inh inhalation BID naltrexone 50 mg PO DAILY 30 days omeprazole 40 mg PO DAILY 90 days ondansetron HCl 4 mg PO Q12H PRN 20 days rosuvastatin 5 mg PO DAILY sertraline 75 mg (1.5 x 50 mg) PO DAILY 30 days Tobacco use date assessed: 06/19/24 Dental Screening Dental Screen Date: 06/19/24 HPI 5 month follow up, ok by Jayden HPI Details History of Present Illness The patient is a 59-year-old female presenting with concerns regarding her sobriety and management of alcohol use disorder. She reports being sober for four months, having completed two intensive outpatient programs consecutively. Currently, she is attending an outpatient program regularly and receiving Naltrexone therapy. The patient describes significant improvement in her mental clarity and overall well-being since achieving sobriety. She has started to rebuild relationships with her family, particularly with her daughter and grandchildren, which had been strained for many years. Despite being unemployed, she plans to seek employment soon and intends to file for Social Security benefits in the interim. She denies any suicidal or homicidal ideation. Review of Systems - Psychiatric: Reports improved mental c larity and mood. Denies suicidal or homicidal ideation. Plan The patient will continue attending her outpatient program and receiving Naltrexone therapy to support her sobriety. Regular follow-up appointments will be scheduled to monitor her progress and address any emerging issues. She is encouraged to maintain her positive family relationships and seek employment opportunities as part of her recovery process. Discussion Notes I discussed with the patient the importance of continuing her outpatient program and Naltrexone therapy to maintain sobriety. We agreed on scheduling regular follow-up appointments to monitor her progress. I encouraged her to continue rebuilding her family relationships and to explore employment opportunities as part of her recovery. Patient Instructions - Continue attending outpatient program and taking Naltrexone as prescribed. - Attend regular follow-up appointments. - Work on maintaining positive family re lationships. - Seek employment opportunities when nelson dy. [facility] Medical History Alcohol use disorder, moderate, dependence Fractured nose ETOH abuse Alcohol abuse Anxiety and depression Aftercare following left shoulder joint replacement surgery Surgical History History of shoulder surgery Family History Father Bladder cancer Lung cancer Eye cancer Mother HTN (hypertension) Sister No problems noted. Son No problems noted. Daughter No problems noted. Maternal Grandmother HTN (hypertension) Paternal Grandfather No problems noted. Maternal Grandfather No problems noted. Paternal Grandmother No problems noted. 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 occupational status: unemployed Current occupational exposures/hazards: No Cognitive needs: No Hearing needs: No Vision needs: Yes Questionnaire Thrive Questionnaire Date Thrive assessed: 11/14/24 TOMAS-7 AMB Questionnaire TOMAS-7 Date TOMAS - 7 assessed: 06/19/24 Source: Developed by Drs. Usama Wheeler, Veda Coreas, Varun Ashley and colleagues, with an educational brian from [employer]. Physical exam (Primary Care) Tobacco/Smoking Status: Tobacco use Status Tobacco use date assessed 06/19/24 11/29/24 08:14 Patient Tobacco Use Status Former Tobacco user 11/29/24 08:14 e-Cigarette/Vaping Use Never Used 11/29/24 08:14 Thrive Assessment: Date of Thrive Assessment Date Thrive assessed 11/14/24 11/29/24 08:14 Telehealth Telehealth Telehealth Platform: [employer] Location of provider rendering services: practice address Location of patient: address on file Patient Identification confirmed using: Name, : Yes Telehealth method: video Patient verbally consented to treatment: Yes Patient verbally consented to billing insurance company: Yes Patient informed of any privacy concerns related to visit: Yes Minutes spent on Phone/Video with Pt.: 14 Coding Level of Care Code Tele Est Pt Level 3 (40504) Diagnoses ETOH abuse F10.10 Assessment & Plan Assessment & Plan (1) ETOH abuse: Code(s): F10.10 - Alcohol abuse, uncomplicated Category: Social Hx Plan .
== END 2024-11-29 08:46 | disposition home or self-care (01) ==
LOC: HO.HMCC 07:18
PROVIDERS: PCP Nurse Practitioner Family; Visit Provider Nurse Practitioner Family
DX: F10.10 Alcohol abuse, uncomplicated (principal)

== ENCOUNTER 2024-12-03 08:10 | Day surgery (SDC) | payer OTHER, SELFPAY ==
--- OUTSIDE RECORDS SUMMARY | 2024-11-13 10:14 | XMS_ITS | Clinical Summary ---
Author Organization [facility] it Address [address] [place] [address] Care Team Providers Care Clinical Liaison Name Role Phone Unavailable Primary Care Provider [...] Influencers of Health Screening 06/21/2023 COVID-19 Vaccine (1 - 2023-2 5 season) 2024 Influenza Vaccine [...] Documents on File Type Date Recorded Patient Clinical Documentation Manager Expl anation Health Care Decision (hx) 05/06/2016 AD DOMINIQUE DIRECTIVE
[2024-12-03 09:03] VITALS: BP 125/76; PULSE 80; RESP 18; TEMP 36.6; O2SAT 97
[2024-12-03 09:16] VITALS: BMI 26.0
--- NOTE | 2024-12-03 09:37 | MHC.SHP ---
Pre-Procedural Eval Section A - 24 Hr Update-Section A only Date of Service: 12/03/24 The patient is an INPATIENT: No Changes since office visit: No Cold of Flu in the past 2 weeks, No New Medical Problems, No Changes in Medication and No Patient answered all questions The patient has been examined within 24 hours of the surgical procedure. The History & Physical has been completed within 30 days and I have reviewed it.: Yes Section B - Complete if H&P > 30 days Chief Complaint: Trigger finger, right middle finger Allergies: Allergies Allergy/AdvReac Type Severity Reaction Status Date / Time amoxicillin (Augmentin) Allergy Unknown hives Verified 12/03/24 09:19 ciprofloxacin (From CIPRO) Allergy Unknown HIVES Verified 12/03/24 09:19 clavulanic acid (Augmentin) Allergy Unknown hives Verified 12/03/24 09:19 trazodone Allergy Unknown unknown Verified 12/03/24 09:19 Plan Diagnosis/Plan: Unchanged I have reviewed the history and physical and performed a pertinent physical examination on my patient. No changes have occurred unless specified. Time Spent With Patient Time: Total time managing care of this patient today ____ minutes.
--- NOTE | 2024-12-03 09:37 | W.PM.OPN ---
Operative Note Operative Note Date of Service: 12/03/24 Narrative: Operative Note Preop diagnosis: 1. Right middle finger Trigger finger Postop diagnosis: Same Procedure: 1. Right middle finger A1 korin release Surgeon: Eri Carter MD Account Executive Trainee: Johnny NATARAJAN Anesthesia: local block using 1% lidocaine with epinephrine Findings: No locking or catching after A1 korin release EBL: Less than 5 mL Tourniquet time: None Specimens: None Complications: None Disposition: Brought to recovery room in stable condition Plan: Follow-up for 10-14 days for wound check and suture removal Indications: The patient is 59 years old, with a right middle finger trigger finger that has been unresponsive to nonoperative management. The risks and benefits of operative treatment including but not limited to risk of damage to blood vessels, nerves, tendons, infection, persistent pain, persistent symptoms, recurrence or possible need for additional surgery were discussed with the patient and the patient wishes to proceed with surgery. Procedure: Once consent was obtained a local block was performed in the preop area using a combination of 1% lidocaine with epinephrine. The patient was then brought back to the operating suite and placed on the operative table in supine position. The right upper extremity was prepped and draped in a standard surgical fashion. Once assured that we had a good block, a 1.5 cm oblique incision was made centered over the A1 korin of the right middle finger . The incision was made through the skin to the subcutaneous tissues using a #15 blade. Careful dissection was made down to the level of the A1 korin using tenotomy scissors, with care being taken to protect the nearby neurovascular structures. A longitudinal incision was made in the A1 korin 1st using a #15 blade, then using tenotomy scissors under direct visualization. The A1 korin was noted to be thickened. Following our A1 korin release, we no longer saw any locking or catching of the digit with flexion and extension. Once satisfied with our A1 korin release the wound was copiously irrigated with normal saline and hemostasis was obtained with a brief period of local pressure. The skin edges were reapproximated with some 5.0 nylon suture material and a sterile dressing was applied. The patient appears to have tolerated the procedure well and with no complications. All digits were well vascularized at the conclusion of the case.
[2024-12-03 11:22] VITALS: BP 121/70; PULSE 70; RESP 16; O2SAT 98
== END 2024-12-03 11:24 | disposition home or self-care (01) ==
PROVIDERS: PCP Nurse Practitioner Family; Visit Provider Orthopaedic Surgery
PROC: (CPT 26055; principal; 2024-12-03 12:10)
DX: M65.331 Trigger finger, right middle finger (principal); F41.9 Anxiety disorder, unspecified; Z96.612 Presence of left artificial shoulder joint; F10.20 Alcohol dependence, uncomplicated; Z88.1 Allergy status to other antibiotic agents; Z88.8 Allergy status to other drugs, medicaments and biological substances; Z87.891 Personal history of nicotine dependence
CPT/HCPCS: 26055; J0165; J2003

== ENCOUNTER → 2024-12-03 08:10 | Outpatient (BNV) | payer OTHER, SELFPAY | PROVIDERS: PCP Nurse Practitioner Family; Visit Provider Orthopaedic Surgery | DX: M65.331 Trigger finger, right middle finger (principal) | CPT/HCPCS: 26055 ==

== ENCOUNTER 2024-12-11 13:53 | Outpatient (AMB) | payer OTHER, SELFPAY ==
--- NOTE | 2024-12-11 14:57 | A.OFFVIS_ITS ---
Intake Visit Reasons: PO, Stitch came out, R middle finger, DOS 12/03/24 Intake Note: Araceli 59 yr old female presents today for a P/O visit wound check for her right middle finger trigger release from DOS 12/03/24. Patient went to open a bottle and believes she ripe a stitch. Allergies amoxicillin (Augmentin) Allergy (Unknown, Verified 12/11/24 15:04) hives ciprofloxacin (From CIPRO) Allergy (Unknown, Verified 12/11/24 15:04) HIVES clavulanic acid (Augmentin) Allergy (Unknown, Verified 12/11/24 15:04) hives trazodone Allergy (Unknown, Verified 12/11/24 15:04) unknown HPI HPI PO, Stitch came out, R middle finger, DOS 12/03/24: Details: Araceli is a 59 year old right hand dominant woman who presents for a wound check, S/P right middle trigger finger release, DOS: 12/03/24. She says she went to open a bottle at home and is concerned that she felt a stitch rip. She says she is doing well overall She denies any Diabetes or cigarette use. She says she smokes pot occasionally. [facility] Medical History Alcohol use disorder, moderate, dependence Fractured nose ETOH abuse Alcohol abuse Anxiety and depression Aftercare following left shoulder joint replacement surgery Surgical History History of shoulder surgery Family History Father Bladder cancer Lung cancer Eye cancer Mother HTN (hypertension) Sister No problems noted. Son No problems noted. Daughter No problems noted. Maternal Grandmother HTN (hypertension) Paternal Grandfather No problems noted. Maternal Grandfather No problems noted. Paternal Grandmother No problems noted. Other Fractured nose Social History Housing: House Are you a primary manager intensive care to a significant other at home: No Do you presently have visiting nurse or other home services: No Patient Tobacco Use Status: Former Tobacco user e-Cigarette/Vaping Use: Never Used Second Hand Smoke Exposure: Yes service: No Current occupational status: unemployed Current occupational exposures/hazards: No Cognitive needs: No Hearing needs: No Vision needs: Yes Review of Systems Const All systems reviewed & are unremarkable except as noted in HPI and below Physical Exam Const General: no acute distress and alert Orientation/consciousness: patient oriented x3 Neuro General: patient oriented x3 Extrem Other: The patient was alert oriented and in no acute distress The incision is healing well with no erythema drainage or evidence of infection. No sutures pulled out. Some sutures removed today in clinic and Steri-strips applied She can make a fist and extend all her digits No locking or catching Sensation is intact Cap refill is brisk Psych Appearance: grossly normal Affect: normal affect Attitude: cooperative Assessment & Plan Assessment & Plan (1) Trigger finger, right ring finger: Code(s): M65.341 - Trigger finger, right ring finger Category: Medical Plan Assessment & Plan: 1. Right middle finger trigger finger, S/P release DOS: 12/03/24 The patient appears to be doing well post-operatively I educated her about the post-operative course I explained the signs and symptoms of infection, if the patient develops any new or worsening erythema, drainage, pain, or warmth they should contact the clinic or attend the ED. I discussed activity modifications, she is to lift nothing heavier than a cellphone for the next 3 weeks She will perform gentle ROM exercises at home She should avoid any underwater activities at this time She will follow up as scheduled for her post-op visit on 12/18/24 for a wound check & remaining suture removal Scribed for Eri Carter MD by Yonatan Gar director of graduate medical education, on 12/11/24 at 3:05 PM, EST. Coding Level of Care Code Global (45909) Diagnoses Trigger finger, right ring finger M65.341
--- OUTSIDE RECORDS SUMMARY | 2024-12-11 15:07 | XMS_ITS | Clinical Summary ---
Author Organization [facility] it Address [address] [place] [address] Care Team Providers Care Field Interviewer Name Role Phone Unavailable Primary Care Provider [...] 2) 2016 Colorectal Cancer Screening: Colonoscopy 06/21/2023 HIV Screening 06/21/2023 Hepatitis C Screening 06/21/2023 Social Influencers of Health Screening 06/21/2023 COVID-19 Vaccine (1 - 2023-2 5 season) 2024 Depression Screening 05/23/2024 Influenza Vaccine (#1) 2025 HIB Vaccines Aged [...] Documents on File Type Date Recorded Patient Seam Feller Expl anation Health Care Decision (hx) 05/06/2016 AD DOMINIQUE DIRECTIVE
== END 2024-12-11 15:12 | disposition home or self-care (01) ==
LOC: HO.HOS 13:54
PROVIDERS: PCP Nurse Practitioner Family; Visit Provider Orthopaedic Surgery
DX: M65.341 Trigger finger, right ring finger (principal)
CPT/HCPCS: 99024

== ENCOUNTER → 2024-12-11 13:53 | Outpatient (BNVA) | payer OTHER, SELFPAY | PROVIDERS: PCP Nurse Practitioner Family; Visit Provider Orthopaedic Surgery | DX: M65.341 Trigger finger, right ring finger (principal); Z98.890 Other specified postprocedural states | CPT/HCPCS: 99212 ==

== ENCOUNTER 2024-12-18 08:27 | Outpatient (AMB) | payer OTHER, SELFPAY ==
[2024-12-18 08:29] VITALS: BMI 25.9
--- NOTE | 2024-12-18 08:29 | A.OFFVIS_ITS ---
Vital Signs 12/18/24 08:29 Height 5 ft 3 in Weight 146 lb BMI 25.9 Intake Visit Reasons: PO-Rt MF Trigger Release 12/03/24 Intake Note: Araceli is a 59 year old right hand dominant woman who presents today for a post operative visit status post right middle finger A1 korin release, DOS: 12/03/[address] Eri Carter. Patient reports she is doing well with no further con cerns. Suture removed and steri strips applied today in office. Allergies amoxicillin (Augmentin) Allergy (Unknown, Verified 12/18/24 08:38) hives ciprofloxacin (From CIPRO) Allergy (Unknown, Verified 12/18/24 08:38) HIVES clavulanic acid (Augmentin) Allergy (Unknown, Verified 12/18/24 08:38) hives trazodone Allergy (Unknown, Verified 12/18/24 08:38) unknown HPI HPI PO-Rt MF Trigger Release 12/03/24: Details: Araceli is a 59 year old right hand dominant woman who presents today for a post operative visit status post right middle finger A1 korin release, DOS: 12/03/[address] Eri Carter. Patient reports she is doing well with no further concerns. Patient does report that she feels she has some limitations of her range of motion of the right middle finger, but states that she feels this is improving and would like to continue doing exercises at home to try to amend this. Suture removed and steri strips applied today in office. [facility] Medical History Alcohol use disorder, moderate, dependence Fractured nose ETOH abuse Alcohol abuse Anxiety and depression Aftercare following left shoulder joint replacement surgery Surgical History History of shoulder surgery Family History Father Bladder cancer Lung cancer Eye cancer Mother HTN (hypertension) Sister No problems noted. Son No problems noted. Daughter No problems noted. Maternal Grandmother HTN (hypertension) Paternal Grandfather No problems noted. Maternal Grandfather No problems noted. Paternal Grandmother No problems noted. Other Fractured nose Social History (Reviewed 07/22/25 @ 15:12 by CHANDNI Rubio Housing: House Are you a primary vehicle care specialist to a significant other at home: No Do you presently have visiting nurse or other home services: No Patient Tobacco Use Status: Former Tobacco user e-Cigarette/Vaping Use: Never Used Second Hand Smoke Exposure: Yes service: No Current occupational status: unemployed Current occupational exposures/hazards: No Cognitive needs: No Hearing needs: No Vision needs: Yes Review of Systems Const All systems reviewed & are unremarkable except as noted in HPI and below Physical Exam Vital Signs: BMI result Body Mass Index 25.9 Const General: no acute distress and alert Orientation/consciousness: patient oriented x3 Neuro General: patient oriented x3 Extrem Other: The patient was alert oriented and in no acute distress The incision is healing well with no erythema drainage or evidence of infection. No sutures pulled out. Remaining sutures removed today in clinic and Steri-strips applied She can make a fist and extend all her digits No locking or catching Sensation is intact Cap refill is brisk Psych Appearance: grossly normal Affect: normal affect Attitude: cooperative Assessment & Plan Assessment & Plan (1) Trigger finger, right ring finger: Code(s): M65.341 - Trigger finger, right ring finger Category: Medical Plan Assessment & Plan: 1. Right middle finger trigger finger, S/P release DOS: 12/03/24 The patient appears to be doing well post-operatively I educated her about the post-operative course I explained the signs and symptoms of infection, if the patient develops any new or worsening erythema, drainage, pain, or warmth they should contact the clinic or attend the ED. I discussed activity modifications, she is to lift nothing heavier than a cellphone for the next 2 weeks She will perform gentle ROM exercises at home She should avoid any underwater activities at this time for the next week Follow-up as needed Coding Level of Care Code Global (47557) Diagnoses Trigger finger, right ring finger M65.341
--- OUTSIDE RECORDS SUMMARY | 2024-12-18 08:41 | XMS_ITS | Clinical Summary ---
Author Organization [facility] it Address [address] [place] [address] Care Team Providers Care Tobacco Farmworker Name Role Phone Unavailable Primary Care Provider [...] Documents on File Type Date Recorded Patient Snuff Drier Expl anation Health Care Decision (hx) 05/06/2016 AD DOMINIQUE DIRECTIVE
== END 2024-12-18 08:46 | disposition home or self-care (01) ==
LOC: HO.HOS 08:28
PROVIDERS: PCP Nurse Practitioner Family
DX: M65.341 Trigger finger, right ring finger (principal)
CPT/HCPCS: 99024

== ENCOUNTER → 2024-12-18 08:27 | Outpatient (BNVA) | payer OTHER, SELFPAY | PROVIDERS: PCP Nurse Practitioner Family | DX: M65.341 Trigger finger, right ring finger (principal) | CPT/HCPCS: 99212 ==

== ENCOUNTER 2024-12-25 08:57 | Outpatient (AMB) | payer OTHER, SELFPAY ==
[2024-12-25 09:02] VITALS: BP 110/70; PULSE 78; O2SAT 98; BMI 26.6
--- NOTE | 2024-12-25 09:02 | A.OFFVIS_ITS ---
Vital Signs 12/25/24 09:02 Height 5 ft 3 in Weight 150 lb BMI 26.6 BP 110/70 Pulse 78 Pulse Oximetry (%) 98 Intake Visit Reasons: MAT Visit Allergies amoxicillin (Augmentin) Allergy (Unknown, Verified 12/25/24 09:03) hives ciprofloxacin (From CIPRO) Allergy (Unknown, Verified 12/25/24 09:03) HIVES clavulanic acid (Augmentin) Allergy (Unknown, Verified 12/25/24 09:03) hives trazodone Allergy (Unknown, Verified 12/25/24 09:03) unknown Medication List - Last Reconciled 12/25/24 by RILEY Lemus albuterol sulfate 90 mcg/actuation (Ventolin HFA) 2 puffs inhalation Q6H PRN albuterol sulfate 90 mcg/actuation 2 puffs inhalation Q6H PRN cholecalciferol (vitamin D3) 50 mcg PO DAILY clonazepam 0.5 mg PO BID PRN 30 days fluticasone propion-salmeterol 250-50 mcg/dose 1 inh inhalation BID ibuprofen 800 mg PO Q6H PRN naltrexone 50 mg PO DAILY 30 days omeprazole 40 mg PO DAILY 90 days ondansetron HCl 4 mg PO Q12H PRN 20 days rosuvastatin 5 mg PO DAILY sertraline 75 mg (1.5 x 50 mg) PO DAILY 30 days HPI Comments Details: The patient is a 59-year-old female presents for a follow-up visit related to alcohol use disorder. Reports 5 months of sobriety with intermittent cravings, mostly related to emotional periods, specifically when missing who 8 years ago. Continues to decline mental health support. Notes naltrexone is working well and is helping to decrease severe cravings. 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 [facility] Medical History Alcohol use disorder, moderate, dependence Fractured nose ETOH abuse Alcohol abuse Anxiety and depression Aftercare following left shoulder joint replacement surgery Surgical History History of shoulder surgery Family History Father Bladder cancer Lung cancer Eye cancer Mother HTN (hypertension) Sister No problems noted. Son No problems noted. Daughter No problems noted. Maternal Grandmother HTN (hypertension) Paternal Grandfather No problems noted. Maternal Grandfather No problems noted. Paternal Grandmother No problems noted. Other Fractured nose Social History Housing: House Are you a primary healthcare educator to a significant other at home: No Do you presently have visiting nurse or other home services: No Patient Tobacco Use Status: Former Tobacco user e-Cigarette/Vaping Use: Never Used Second Hand Smoke Exposure: Yes service: No Current occupational status: unemployed Current occupational exposures/hazards: No Cognitive needs: No Hearing needs: No Vision needs: Yes Review of Systems Const All systems reviewed & are unremarkable except as noted in HPI and below Physical Exam Vital Signs: Last Vital Signs Pulse 78 12/25/24 09:02 BP 110/70 12/25/24 09:02 Pulse Ox 98 12/25/24 09:02 BMI result Body Mass Index 26.6 Const General: cooperative and well groomed Nutritional Appearance: average body habitus Orientation/consciousness: patient oriented x3 Limitations: no limitations Neuro General: patient oriented x3 Psych Appearance: well kempt Mental Status: mental status grossly normal Speech and movement: Normal speech and movement present Affect: normal affect Attitude: cooperative Thought process: Normal thought process present Thought content: Normal thought content present Insight: Good insight present (Psych) Judgement: Good judgement present (Psych) Assessment & Plan Assessment & Plan (1) Alcohol use disorder, severe, dependence: Code(s): F10.20 - Alcohol dependence, uncomplicated Category: Medical Plan The plan of care is to continue with naltrexone 50 mg daily and follow up in two months or sooner, if needed. Medications: Refilled naltrexone 50 mg PO DAILY 30 tabs 1RF 30 days Patient Instructions: - Continue with naltrexone as prescribed. - Education provided re: importance of initiating mental health treatment. - Follow up in two months or sooner, if needed. - Call with questions, concerns, or to report side effects/new onset of symptoms to [facility]. - The patient verbalized understanding and agreed with plan of care. Coding Level of Care Code Est Pt Level 3 (10724) Diagnoses Alcohol use disorder, severe, dependence F10.20
--- OUTSIDE RECORDS SUMMARY | 2024-12-25 09:15 | XMS_ITS | Clinical Summary ---
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
== END 2024-12-25 09:29 | disposition home or self-care (01) ==
LOC: HO.HCC 08:58
PROVIDERS: PCP Nurse Practitioner Family; Visit Provider Clinical Nurse Specialist Psychiatric/Mental Health
DX: F10.20 Alcohol dependence, uncomplicated (principal)
CPT/HCPCS: 99213

== ENCOUNTER → 2024-12-25 08:57 | Outpatient (BNVA) | payer OTHER, SELFPAY | PROVIDERS: PCP Nurse Practitioner Family; Visit Provider Clinical Nurse Specialist Psychiatric/Mental Health | DX: F10.20 Alcohol dependence, uncomplicated (principal); Z79.891 Long term (current) use of opiate analgesic; Y90.9 Presence of alcohol in blood, level not specified | CPT/HCPCS: 99212 ==

== ENCOUNTER 2025-02-25 08:51 | Outpatient (AMB) | payer OTHER, SELFPAY ==
[2025-02-25 08:58] VITALS: BP 126/70; PULSE 78; O2SAT 98; BMI 26.6
--- NOTE | 2025-02-25 08:58 | A.OFFVIS_ITS ---
Vital Signs 02/25/25 08:58 Height 5 ft 3 in Weight 150 lb BMI 26.6 BP 126/70 Pulse 78 Pulse Oximetry (%) 98 Intake Visit Reasons: MAT Allergies amoxicillin (Augmentin) Allergy (Unknown, Verified 02/25/25 08:58) hives ciprofloxacin (From CIPRO) Allergy (Unknown, Verified 02/25/25 08:58) HIVES clavulanic acid (Augmentin) Allergy (Unknown, Verified 02/25/25 08:58) hives trazodone Allergy (Unknown, Verified 02/25/25 08:58) unknown HPI Comments Details: A 59-year-old female presents for a follow-up visit related AUD in sustained remission with naltrexone. Reports happy with a new work schedule of 15-20 hours per week. Does note financial difficulties in reducing work schedule from full-time to part-time. Denies use of opiates, alcohol, and other substances with the exception of intermittent cannabis use. Does acknowledge approximately a month ago was at a restaurant with some friends and did take a couple sips of alcohol, decided to stop and denied cravings or urges to continue alcohol consumption.T/w suggested a referral for mental health services and the patent declined. [facility] Medical History Alcohol use disorder, moderate, dependence Fractured nose ETOH abuse Alcohol abuse Anxiety and depression Aftercare following left shoulder joint replacement surgery Surgical History History of shoulder surgery Family History Father Bladder cancer Lung cancer Eye cancer Mother HTN (hypertension) Sister No problems noted. Son No problems noted. Daughter No problems noted. Maternal Grandmother HTN (hypertension) Paternal Grandfather No problems noted. Maternal Grandfather No problems noted. Paternal Grandmother No problems noted. Other Fractured nose Social History Housing: House Are you a primary managed care analyst to a significant other at home: No Do you presently have visiting nurse or other home services: No Patient Tobacco Use Status: Former Tobacco user e-Cigarette/Vaping Use: Never Used Second Hand Smoke Exposure: Yes service: No Current occupational status: unemployed Current occupational exposures/hazards: No Cognitive needs: No Hearing needs: No Vision needs: Yes Review of Systems Const All systems reviewed & are unremarkable except as noted in HPI and below Physical Exam Vital Signs: Last Vital Signs Pulse 78 02/25/25 08:58 BP 126/70 02/25/25 08:58 Pulse Ox 98 02/25/25 08:58 BMI result Body Mass Index 26.6 Const General: cooperative Assessment & Plan Assessment & Plan (1) Alcohol use disorder in remission: Code(s): F10.91 - Alcohol use, unspecified, in remission Category: Medical Plan The plan of care is to continue with naltrexone tablets 50 mg daily and practice risk reduction activities to reduce cannabis use. Encouraged to consider mental health services. Follow-up in 2 months or sooner if needed. Medications: Refilled naltrexone 50 mg PO DAILY 30 tabs 1RF 30 days Patient Instructions: - Continue with naltrexone as prescribed. - Engage in risk reduction activities to minimize cannabis use. - Follow-up in 2 months or sooner if needed. - Call with questions, concerns, or to report side effects/new onset of symptoms to [facility]. - The patient verbalized understanding and agreed with plan of care. Coding Level of Care Code Est Pt Level 3 (30978) Diagnoses Alcohol use disorder in remission F10.91
--- OUTSIDE RECORDS SUMMARY | 2025-02-25 09:40 | XMS_ITS | Clinical Summary ---
Author Organization [facility] it Address [address] [place] [address] Care Team Providers Care Sales Representative [employer] Name Role Phone Unavailable Primary Care Provider [...] Last Done Comments Breast Cancer Screening 1966 Colorectal Cancer Screening: Colonoscopy 1966 DTaP,Tdap,and Td Vaccines (1 - Tdap) 1985 Hepatitis B Vaccines (1 of 3 - 19+ 3-dose series) 1985 Cervical Cancer Screening: P ap Smear 1987 Pneumococcal Vaccine: 50+ Ye ars (1 of 1 - PCV) 2016 Zoster Vaccines (1 of 2) 2016 HIV Screening 06/21/2023 Hepatitis C Screening 06/21/2023 Social Influencers of Health Screening 06/21/2023 Depression Screening 05/23/2024 COVID-19 Vaccine ( - 2023-2 5 season) 2025 Influenza Vaccine (#1) 2025 RSV Immunization Adult Patie nts (1 - 1-dose 75+ series) 2041 HIB Vaccines Aged Out No longer eligi [...] Documents on File Type Date Recorded 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
== END 2025-02-25 09:25 | disposition home or self-care (01) ==
LOC: HO.HCC 08:51
PROVIDERS: PCP Nurse Practitioner Family; Visit Provider Clinical Nurse Specialist Psychiatric/Mental Health
DX: F10.91 Alcohol use, unspecified, in remission (principal)
CPT/HCPCS: 99213

== ENCOUNTER → 2025-02-25 08:51 | Outpatient (BNVA) | payer OTHER, SELFPAY | PROVIDERS: PCP Nurse Practitioner Family; Visit Provider Clinical Nurse Specialist Psychiatric/Mental Health | DX: F10.91 Alcohol use, unspecified, in remission (principal) | CPT/HCPCS: 99212 ==